=== PATIENT | female | born 1975 | race Caucasian/White ===

== ENCOUNTER 2016-12-16 20:47 | Emergency (ER) | payer BC, MEDICAID ==
[2016-12-16] MEDS ORDERED: guaiFENesin/CODEINE 5 ML UDC PO STA (22:13)
[2016-12-16] MEDS ORDERED: AZITHROMYCIN 250 MG TABLET PO STA (22:13)
[2016-12-16] MEDS ORDERED: DEXAMETHASONE 10 MG/ML VIAL PO STA (22:13)
[2016-12-16] MEDS ORDERED: AZITHROMYCIN 250 MG TABLET PO ONE (22:15)
[2016-12-16] MEDS ORDERED: DEXAMETHASONE 10 MG/ML VIAL ONE (22:16)
[2016-12-16] MEDS ORDERED: guaiFENesin/CODEINE 5 ML UDC ONE (22:16)
== END 2016-12-16 22:32 | disposition home or self-care (01) ==
DX: J02.9 Acute pharyngitis, unspecified (principal); I10 Essential (primary) hypertension; J45.909 Unspecified asthma, uncomplicated; E11.9 Type 2 diabetes mellitus without complications; Z79.4 Long term (current) use of insulin; M79.7 Fibromyalgia
CPT/HCPCS: 87070; 87430; 99283; A9270

== ENCOUNTER 2017-01-28 22:13 | Emergency (ER) | payer BC ==
--- NOTE | 2017-01-28 22:21 | ED Physician Documentation ---
PD HPI URI - Stated complaint Stated Complaint: CONGESTION, COUGH - Chief complaint Chief Complaint: Resp - History obtained from History obtained from: Patient - History of Present Illness Timing - onset: How many days ago (few) Timing duration: Days Timing details: Gradual onset, Still present Associated symptoms: Chills, Nasal congestion, Swollen nodes, Dry cough, Dyspnea. No: Fever, Sinus pain, Hemoptysis, Chest pain, Bilateral edema Contributing factors: COPD / asthma. No: Sick contact, Travel, Immunocompromised, Unimmunized Improves by: Rest Worsened by: Activity Similar symptoms before: Has not had sx before Recently seen: Not recently seen Review of Systems Constitutional: denies: Fever, Chills Neurologic: denies: Focal weakness, Numbness PD PAST MEDICAL HISTORY - Past Medical History Cardiovascular: Hypertension Respiratory: Asthma Neuro: Headache/migraine Endocrine/Autoimmune: Type 2 diabetes Musculoskeletal: Fibromyalgia - Past Surgical History Past Surgical History: No - Present Medications Home Medications: Ambulatory Orders Medication Instructions Recorded Confirmed Insulin Glargine,Hum.rec.anlog 07/16/13 05/21/15 [Lantus] Metformin HCl 500 mg PO BID 06/28/16 06/28/16 oxyCODONE/ACET 5/325 [Percocet 5 1 - 2 each PO Q4-6H PRN #15 tablet 06/28/16 mg/325 mg] Azithromycin [Zithromax] 250 mg PO DAILY #4 tablet 12/16/16 guaiFENesin/CODEINE [Robitussin AC] 5 ml PO Q6H PRN #100 udc 12/16/16 Dexamethasone [Decadron] 4 mg PO DAILY #5 tablet 01/28/17 - Allergies Allergies/Adverse Reactions: Allergies Allergy/AdvReac Type Severity Reaction Status Date / Time Iodinated Contrast Media - Allergy Hives Verified 06/28/16 10:24 Oral and [Iodinated Contrast Media - IV Dye] hydromorphone HCl * AdvReac Unknown Hallucinati Verified 07/16/13 19:58 [From Dilaudid] ons - Social History Does the pt smoke?: No Smoking Status: Never smoker Does the pt drink ETOH?: Yes Does the pt have substance abuse?: No - Immunizations Immunizations are current?: Yes - POLST Patient has POLST: No PD ED PE NORMAL - Vitals Vital signs reviewed: Yes - General General: Alert and oriented X 3, No acute distress, Well developed/nourished - HEENT HEENT: Moist mucous membranes - Neck Neck: Supple, no meningeal sign, No adenopathy - Cardiac Cardiac: RRR, No murmur - Respiratory Respiratory: Clear bilaterally - Abdomen Abdomen: Non tender - Back Back: No CVA TTP - Derm Derm: Normal color, Warm and dry - Neuro Neuro: Alert and oriented X 3, supervisor in charge 2-12 intact, No motor deficit, No sensory deficit, Normal speech Results - Vitals Vitals: Oxygen O2 Source Room air PD MEDICAL DECISION MAKING - ED course Complexity details: re-evaluated patient, considered differential, d/w patient Departure - Departure Disposition: Home, Self Care Clinical Impression: Upper respiratory infection Qualifiers: URI type: unspecified URI Qualified Code(s): J06.9 - Acute upper respiratory infection, unspecified Condition: Stable Record reviewed to determine appropriate education?: Yes Instructions: ED URI Viral W Wheezing Prescriptions: Dexamethasone [Decadron] 4 mg PO DAILY #5 tablet Comments: Drink lots of fluids. Tylenol or Ibuprofen for fevers/aches. Decadron daily for 5 days to reduce swelling of sinuses and bronchioles. Use the Albuterol inhaler 2 puffs 4 times daily for a week or more to help with reducing cough and tightness. Add cough medication if needed. This is likely to last 3-5 days or so and then the cough may persist for couple of weeks intermittently. Rest off work if needed for the next 2-3 days. Forms: Activity restrictions Discharge Date/Time: 01/28/17 23:25
[2017-01-28] MEDS ORDERED: guaiFENesin/CODEINE 5 ML UDC ONE (22:41)
[2017-01-28] MEDS ORDERED: ONDANSETRON ODT 4 MG TABLET ONE (22:41)
[2017-01-28] MEDS ORDERED: DEXAMETHASONE 10 MG/ML VIAL ONE (22:41)
[2017-01-28] MEDS ORDERED: ALBUTEROL 18 GM INHALER INH ONE ×2 (22:42→23:03)
[2017-01-28] MEDS: DEXAMETHASONE 10 MG/ML VIAL PO STA (22:47)
[2017-01-28] MEDS: ONDANSETRON ODT 4 MG TABLET TL STA (22:47)
[2017-01-28] MEDS: guaiFENesin/CODEINE 5 ML UDC PO STA (22:47)
[2017-01-28 22:59] VITALS: BP 159/101
[2017-01-28] MEDS: ALBUTEROL 8 GM INHALER INH STA (23:11)
== END 2017-01-28 23:25 | disposition home or self-care (01) ==
LOC: ED 22:13
DX: J06.9 Acute upper respiratory infection, unspecified (principal); I10 Essential (primary) hypertension; J45.909 Unspecified asthma, uncomplicated; J44.9 Chronic obstructive pulmonary disease, unspecified; E11.9 Type 2 diabetes mellitus without complications; Z79.4 Long term (current) use of insulin; Z79.84 Long term (current) use of oral hypoglycemic drugs; M79.7 Fibromyalgia
CPT/HCPCS: 94640; 99283

== ENCOUNTER 2017-06-01 18:44 | Emergency (ER) | payer BC ==
[2017-06-01 18:53] VITALS: BP 145/100
[2017-06-01] MEDS ORDERED: oxyCODONE/ACET 5/325 Prepack 4 PO STA (20:36)
[2017-06-01] MEDS ORDERED: AMOX/CLAV 875 MG/125 MG TABLET PO STA (20:36)
--- NOTE | 2017-06-01 20:39 | ED Physician Documentation ---
PD HPI URI - Stated complaint Stated Complaint: HUSAIN/CONGESTION - Chief complaint Chief Complaint: Heent - History obtained from History obtained from: Patient - History of Present Illness Timing - onset: Other (This is a 41-year-old woman with type 2 diabetes, not currently on treatment because she is between doctors she has had 4 days of severe sinus pain, drainage, tactile fevers and a nonproductive cough without shortness of breath.) Review of Systems Constitutional: reports: Fever, Chills, Fatigue. denies: Myalgias Ears: denies: Loss of hearing, Ear pain Nose: reports: Rhinorrhea / runny nose, Congestion, Sinus pressure / pain. denies: Epistaxis Respiratory: reports: Cough. denies: Dyspnea PD PAST MEDICAL HISTORY - Past Medical History Past Medical History: Yes Cardiovascular: Hypertension Respiratory: Asthma Neuro: Headache/migraine Endocrine/Autoimmune: Type 2 diabetes Musculoskeletal: Fibromyalgia - Past Surgical History Past Surgical History: Yes General: Colonoscopy, Other - Present Medications Home Medications: Ambulatory Orders Medication Instructions Recorded Confirmed Amox/Clav 875/125 [Augmentin] 1 each PO Q12H 14 Days 06/01/17 Glipizide [Glipizide ER] 5 mg PO DAILY #30 tab.er.24 06/01/17 Guaifenesin/Pseudoephedrne HCl 1 each PO BID PRN #20 tab.er.12h 06/01/17 [Mucinex D ER 600-60 mg Tablet] Oxycodone HCl/Acetaminophen 1 - 2 tab PO Q4H PRN #7 tablet 06/01/17 [Percocet 5-325 mg Tablet] - Allergies Allergies/Adverse Reactions: Allergies Allergy/AdvReac Type Severity Reaction Status Date / Time Iodinated Contrast- Oral and Allergy Hives Verified 06/01/17 20:10 IV Dye [Iodinated Contrast Media - IV Dye] hydromorphone HCl * AdvReac Unknown Hallucinati Verified 06/01/17 20:10 [From Dilaudid] ons - Social History Does the pt smoke?: Yes Smoking Status: Current every day smoker Does the pt drink ETOH?: Yes Does the pt have substance abuse?: No - Immunizations Immunizations are current?: Yes - POLST Patient has POLST: No PD ED PE NORMAL - Vitals Vital signs reviewed: Yes - General General: Alert and oriented X 3, No acute distress - HEENT HEENT: PERRL, EOMI, Ears normal, Pharynx benign, Other (Bilateral frontal sinus tenderness) - Neck Neck: Supple, no meningeal sign, No bony TTP - Cardiac Cardiac: RRR, No murmur - Respiratory Respiratory: No respiratory distress, Clear bilaterally - Abdomen Abdomen: Non tender - Derm Derm: No rash - Neuro Neuro: Alert and oriented X 3, Normal speech - Psych Psych: Normal mood, Normal affect Results - Vitals Vitals: Vital Signs - 24 hr 06/01/17 18:52 Temperature 36.2 C L Heart Rate 104 H Respiratory 18 Rate Blood Pressure 145/100 H O2 Saturation 99 Oxygen O2 Source Room air PD MEDICAL DECISION MAKING - ED course ED course: 41-year-old woman with sinusitis in the setting of uncontrolled diabetes. We will restart her on glipizide, she declined metformin because of side effects. She refused to have her blood sugar checked here. Departure - Departure Disposition: 01 Home, Self Care Clinical Impression: Sinusitis Qualifiers: Sinusitis location: frontal Chronicity: acute Recurrence: recurrent Qualified Code(s): J01.11 - Acute recurrent frontal sinusitis Hyperglycemia due to type 2 diabetes mellitus Qualifiers: Diabetes mellitus fpc insulin use: without terminal operations supervisor use Qualified Code(s ): E11.65 - Type 2 diabetes mellitus with hyperglycemia Condition: Good Record reviewed to determine appropriate education?: Yes Instructions: ED Sinusitis Abx Tx Prescriptions: Amox/Clav 875/125 [Augmentin] 1 each PO Q12H 14 Days Glipizide [Glipizide ER] 5 mg PO DAILY #30 tab.er.24 Guaifenesin/Pseudoephedrne HCl [Mucinex D ER 600-60 mg Tablet] 1 each PO BID PRN #20 tab.er.12h PRN Reason: congestion Oxycodone HCl/Acetaminophen [Percocet 5-325 mg Tablet] 1 - 2 tab PO Q4H PRN #7 tablet PRN Reason: Pain Comments: Call your doctor to arrange a follow-up appointment, make the next available appointment. In the interim, return anytime if worse or if new symptoms develop. Your blood pressure was elevated today on check into the emergency department. This does not mean that you have hypertension, it is a common phenomenon to come to the emergency department and have elevated blood pressure. I recommend that she see your primary care physician within the week to have it rechecked when you are feeling better. Do not drink or drive while taking narcotic pain medication. Note that many narcotic pain relievers also contain Tylenol/acetaminophen. Please ensure that your total dose of acetaminophen from all sources does not exceed 3 g (3000 mg) per day. You may get constipated while on this medication. Take a stool softener such as Colace twice a day while you are on it. Also add an [id number] laxative such as senna or MiraLAX on any day that you do not have a bowel movement. If you received a narcotic pain medication or sedative while in the emergency department, do not drive for the next 24 hours. Forms: Activity restrictions Discharge Date/Time: 06/01/17 20:50
[2017-06-01] MEDS ORDERED: AMOX/CLAV 875 MG/125 MG TABLET PO ONE (20:47)
[2017-06-01] MEDS ORDERED: oxyCODONE/ACET 5/325 Prepack 4 PO ONE (20:47)
== END 2017-06-01 20:50 | disposition home or self-care (01) ==
LOC: ED 18:44
DX: J01.11 Acute recurrent frontal sinusitis (principal); E11.65 Type 2 diabetes mellitus with hyperglycemia; Z79.84 Long term (current) use of oral hypoglycemic drugs; I10 Essential (primary) hypertension; J45.909 Unspecified asthma, uncomplicated; M79.7 Fibromyalgia; F17.200 Nicotine dependence, unspecified, uncomplicated
CPT/HCPCS: 99283; A9270

== ENCOUNTER 2017-06-22 10:38 | Outpatient (CLI) | payer BC | END 2017-06-22 10:39 | disposition critical access hospital (66) | LOC: EMS 10:38 | PROVIDERS: ATTEND Surgery | DX: R41.82 Altered mental status, unspecified (principal); R73.09 Other abnormal glucose; R11.2 Nausea with vomiting, unspecified ==

== ENCOUNTER 2017-06-22 10:50 | Observation (INO) | payer BC ==
[2017-06-22] MEDS ORDERED: NALOXONE 0.4 MG/ML VIAL IVP STA (11:03)
[2017-06-22 11:14] LABS: BILIRUBIN,URINE NEGATIVE (NEGATIVE)
[2017-06-22 11:18] LABS: HCG UR QUAL NEGATIVE; UA w/ MICROSCOPIC CHARGE YES
[2017-06-22 11:34] LABS: UR CULTURE IF IND NOT INDICATED
[2017-06-22] MEDS ORDERED: ONDANSETRON ODT 4 MG TABLET TL STA (11:36)
[2017-06-22] MEDS ORDERED: LORazepam 2 MG/ML SYRINGE IVP STA (11:36)
[2017-06-22] MEDS ORDERED: LORazepam 2 MG/ML SYRINGE ONE (11:39)
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
[2017-06-22 12:12] LABS: BASOPHILS % (AUTO) 0.4 %; EOSINOPHILS % (AUTO) 0.2 %; HCT - HEMATOCRIT 38.6 % (37.0-47.0); HGB - HEMOGLOBIN 13.3 g/dL (12.0-16.0); LYMPHOCYTES % (AUTO) 8.9 %; MEAN CORPUSCULAR HEMOGLOBIN 30.3 pg (27.0-31.0); MEAN CORPUSCULAR HGB CONC 34.4 g/dL (32.0-36.0); MEAN CORPUSCULAR VOLUME 87.9 fL (81.0-99.0); MEAN PLATELET VOLUME 8.4 fL (7.9-10.8); NEUTROPHILS % (AUTO) 84.5 %; RED BLOOD COUNT 4.39 10^6/uL (4.20-5.40); RED CELL DISTRIBUTION WIDTH 12.8 % (12.0-15.0); UNCORRECTED WHITE BLOOD COUNT 20.5 x10^3/uL; WHITE BLOOD COUNT 20.5 x10^3/uL (4.8-10.8)
[2017-06-22 12:27] LABS: SALICYLATE < 6.0 mg/dL
[2017-06-22 12:34] LABS: BAND NEUTROPHILS % (MANUAL) 2 %; EOSINOPHILS % (MANUAL) 1 %; LYMPHOCYTES % (MANUAL) 11 %; NEUTROPHILS % (MANUAL) 79 %; TOTAL CELLS COUNTED 100
[2017-06-22 12:35] LABS: NP AUTO DIFFERENTIAL? YES; NP MAN DIFFERENTIAL? NO; WBC MORPHOLOGY (MULTIPLE) 1+ VACUOLATION (NORMAL)
[2017-06-22 12:46] LABS: BUN - BLOOD UREA NITROGEN 13 mg/dL (6-20)
[2017-06-22 12:48] LABS: CALCIUM 8.4 mg/dL (8.5-10.3); CARBON DIOXIDE - CO2 20 mmol/L (21-32); CHLORIDE 105 mmol/L (101-111); CREATININE 0.6 mg/dL (0.4-1.0); GFR - MDRD 111 (>89); GLUCOSE 331 mg/dL (70-100); SODIUM 135 mmol/L (135-145)
[2017-06-22 12:55] LABS: ACETAMINOPHEN < 10 ug/mL (10-30)
--- NOTE | 2017-06-22 13:00 | CT Preliminary Report ---
Exam: CT HEAD W/O IMPRESSION: Normal head CT. [facility] SITE ID: [id number]
--- NOTE | 2017-06-22 13:02 | CT Report ---
EXAM: CT HEAD EXAM DATE: 06/22/2017 12:32 PM. CLINICAL HISTORY: Found on floor with altered mental status. COMPARISON: None. TECHNIQUE: Multiaxial CT images were obtained from the foramen magnum to the vertex. IV contrast: Non e. Reformats: Coronal. In accordance with CT protocol optimization, one or more of the following dose reduction techniques w ere utilized for this exam: automated exposure control, adjustment of mA and/or KV based on patient s ize, or use of iterative reconstructive technique. FINDINGS: Parenchyma: No intraparenchymal hemorrhage. No evidence of mass, midline shift, or CT findings of inf arction. Araya-white differentiation is distinct. Extraaxial Spaces: Normal for age. No subdural or epidural collections identified. Ventricles: Normal in size and position. Sinuses and orbits: Imaged paranasal sinuses, orbits, and mastoids show no significant abnormality. Bones: No evidence of fracture or calvarial defect. Other: None. IMPRESSION: Normal head CT. [facility] Referring Provider Line: [phone] SITE ID: [id number]
--- NOTE | 2017-06-22 13:04 | CT Preliminary Report ---
Exam: CT CERVICAL SPINE W/O IMPRESSION: 1. No cervical spine fracture. 2. Lower cervical spine kyphosis and degenerative changes. [facility] SITE ID: [id number]
--- NOTE | 2017-06-22 13:06 | CT Report ---
EXAM: CT CERVICAL SPINE WITHOUT CONTRAST DATE: 06/22/2017 12:32 PM HISTORY: Found down. Altered mental status. COMPARISONS: None. TECHNIQUE: Thin-section axial images were acquired of the cervical spine without contrast. Post-proce ssing: Coronal and sagittal reformats. Other: None. In accordance with CT protocol optimization, one or more of the following dose reduction techniques w ere utilized for this exam: automated exposure control, adjustment of mA and/or KV based on patient s ize, or use of iterative reconstructive technique. FINDINGS: Alignment: 34 degree kyphosis from C3-C4 to T1-T2 level. Bones: No fracture or bone lesion. Interspace Levels/Facets: Mild loss of disk space height at C5-C6 through C7-T1 levels. Mild bilateral C5-C6 uncovertebral joint hypertrophy, without significant neuroforaminal narrowing. Musculature: Normal. No fatty atrophy. Other: The paravertebral and prevertebral soft tissues are normal. The lung apices are clear. IMPRESSION: 1. No cervical spine fracture. 2. Lower cervical spine kyphosis and degenerative changes. [facility] Referring Provider Line: [phone] SITE ID: [id number]
[2017-06-22] MEDS ORDERED: ACETAMINOPHEN 325 MG TABLET PO STA (14:01)
[2017-06-22] MEDS ORDERED: SODIUM CHLORIDE 0.9% 1,000 ML IV ONE (14:01)
[2017-06-22] MEDS ORDERED: ACETAMINOPHEN 325 MG TABLET PO ONE (14:08)
--- NOTE | 2017-06-22 15:04 | XRAY Preliminary Report ---
Exam: XR CHEST 2 VIEW PA/LAT IMPRESSION: No acute cardiopulmonary abnormality. [facility] SITE ID: [id number]
--- NOTE | 2017-06-22 15:06 | XRAY Report ---
EXAM: CHEST RADIOGRAPHY EXAM DATE: 06/22/2017 02:56 PM. CLINICAL HISTORY: Chest pain syncope. COMPARISON: 06/28/2016. TECHNIQUE: 2 views. FINDINGS: Lungs/Pleura: No focal opacities evident. No pleural effusion. No pneumothorax. Normal volumes. Mediastinum: Heart and mediastinal contours are unremarkable. Other: None. IMPRESSION: No acute cardiopulmonary abnormality. [facility] Referring Provider Line: [phone] SITE ID: [id number]
[2017-06-22] MEDS ORDERED: ONDANSETRON ODT 4 MG TABLET ONE (15:21)
[2017-06-22] MEDS ORDERED: PROCHLORPERAZINE 10 MG/2 ML VIAL IVP PRN (16:44)
[2017-06-22] MEDS ORDERED: SODIUM CHLORIDE FLUSH 0.9% 10 ML SYRINGE IVP PRN (16:44)
[2017-06-22] MEDS ORDERED: ACETAMINOPHEN 325 MG TABLET PO PRN (16:44)
[2017-06-22] MEDS ORDERED: ONDANSETRON 4 MG/2 ML VIAL IVP PRN (16:44)
[2017-06-22] MEDS ORDERED: cefTRIAXone 1 GM in SODIUM CHLORIDE 0.9% MINIBAG 100 ML IV SCH (17:00)
[2017-06-22] MEDS ORDERED: cefTRIAXone 1 GM VIAL IVP SCH (17:00)
[2017-06-22] MEDS ORDERED: SODIUM CHLORIDE 0.9% 1,000 ML IV SCH ×2 (17:00)
--- NOTE | 2017-06-22 17:03 | HISTORY & PHYSICAL EXAMINATION ---
Chief Complaint - Chief Complaint Chief Complaint: syncope History of Present Illness - Admitted From Admitted From:: ER - History Obtained From History obtained from: pt - History of Present Illness HPI Comment/Other: This is a 42-year-old Cauc[place] female with a past medical history significance for DM2, HTN, Asthma, headache/migraine, fibromyalgia, who present ER for evaluation of one episode syncope. Patient report when she took shower at home, she felt dizziness, and numbness on both legs, then she sit down for a whole. When she slowly stand up, she lost of consciousness. She state the last thing she remember was she tried to stand up. Patient report she did not have PCP now. She was used to have insulin to control his blood sugar, but now she did not have PCP. She did not use insulin for recent two years. Patient state her blood sugar always runs high. She state "when I eat some sugar stuff, my sugar run up to 600." She state she was never diagnosis of seizure, and never had "normal seizure." patient also state she was never diagnosis of colon cancer. patient denies fever, chill, chest pain, palpitation, cough, shortness of breath , abdominal pain, nausea, vomiting, diarrhea. image studies are unremarkable. Lab test reveals elevated blood glucose, and WBC , questionable UTI. She is admitted for evaluation and treatment of syncope. History - Past Medical History Cardiovascular: reports: Hypertension Respiratory: reports: Asthma Neuro: reports: Headache/migraine Endocrine/Autoimmune: reports: Type 2 diabetes Musculoskeletal: reports: Fibromyalgia MRSA Hx?: No - Past Surgical History General: reports: Colonoscopy, Other - POLST Patient has POLST: No Meds/Allgy - Home Medications Home Medications: Ambulatory Orders Medication Instructions Recorded Confirmed Amox/Clav 875/125 [Augmentin] 1 each PO Q12H 14 Days tablet 06/01/17 06/22/17 Glipizide [Glipizide ER] 5 mg PO DAILY #30 tab.er.24 06/01/17 06/22/17 Guaifenesin/Pseudoephedrne HCl 1 each PO BID PRN #20 tab.er.12h 06/01/17 [Mucinex D ER 600-60 mg Tablet] Oxycodone HCl/Acetaminophen 1 - 2 tab PO Q4H PRN #7 tablet 06/01/17 06/22/17 [Percocet 5-325 mg Tablet] Cyclobenzaprine [Flexeril] 10 mg PO PRN 06/22/17 Cyclobenzaprine [Flexeril] 10 mg PO TID PRN 06/22/17 - Allergies Allergies/Adverse Reactions: Allergies Allergy/AdvReac Type Severity Reaction Status Date / Time chocolate flavor Allergy Anaphylaxis Verified 06/22/17 19:33 Iodinated Contrast- Oral and Allergy Hives Verified 06/22/17 10:57 IV Dye [Iodinated Contrast Media - IV Dye] hydromorphone HCl * AdvReac Unknown Hallucinati Verified 06/22/17 10:57 [From Dilaudid] ons Review of Systems - Constitutional Constitutional: reports: Fatigue, Weakness. denies: Fever, Chills, Malaise, Poor appetite, Diaphoresis, Night sweats, Weight gain, Weight loss - Eyes Eyes: denies: Pain, Irritation, Amaurosis, Blurred vision, Spots in vision, Field loss, Vision loss, Dipolpia - Ears, Nose & Throat Ears, Nose & Throat: denies: Ear pain, Hearing loss, Hearing aids, Tinnitus, Vertigo, Nasal pain, Nasal discharge, Nasal congestion, Postnasal drainage, Dentures, Sore throat, Hoarseness, Mouth lesions, Bleeding gums - Cardiovascular Cariovascular: reports: Syncope. denies: Irregular heart rate, Palpitations, Chest pain, Edema, Lightheadedness, Exertional dyspnea, Decr. exercise tolerance , Orthopnea - Respiratory Respiratory: denies: Cough, Sputum production, Wheezing, Snoring, Hemoptysis, Orthopnea, SOB at rest, SOB with exertion, Apnea - Gastrointestinal Gastrointestinal: denies: Abdominal pain, Abdominal distention, Constipation, Diarrhea, Change in bowel habits, Rectal bleeding, Black stools, Bloody stools, Nausea, Vomiting, Dayne blood emesis, Coffee grounds emesis, Reflux/heartburn, Poor appetite - Genitourinary Genitourinary: denies: Dysuria, Frequency, Urgency, Hematuria, Incontinence, Flank pain, Nocturia - Musculoskeletal Musculoskeletal: denies: Muscle pain, Back pain, Muscle aches, Stiffness, Limited range of motion, Muscle weakness, Gout, Joint pain, Joint swelling - Integumentary Integumentary: denies: Rash, Pruritis, Lesions, Dryness, Lumps, Acne, Pigment changes - Neurological Neurological: denies: General weakness, Focal weakness, Headache, Dizziness, Numbness, Memory problems, Pre-existing deficit, Abnormal gait, Seizures, Incoordination, Slurred speech - Psychiatric Psychiatric: denies: Depression, Anxiety, Suicidal, Delusions, Hallucinations, Homicidal - Endocrine Endocrine: denies: Polyuria, Polydypsia, Polyphagia, Intolerance to cold, Intolerance to heat - Hematologic/Lymphatic Hematologic/Lymphatic: denies: Anemia, Bruising, Petechiae, Blood clots, Lymphadenopathy, Bleeding tendencies, Recurrent infections Exam - Vital Signs Reviewed Vital Signs: Yes Vital Signs: Vital Signs x48h Temp Pulse Resp BP Pulse Ox 06/22/17 15:34 37.0 C 91 18 147/85 H 98 06/22/17 13:56 92 13 159/93 H 97 06/22/17 11:54 103 H 26 H 150/95 H 98 06/22/17 10:52 100 14 165/95 H 100 - Physical Exam General Appearance: positive: No acute distress, Alert. negative: Lethargic Eyes Bilateral: positive: Normal inspection, PERRL, EOMI, No lid inflammation, Conjunctivae nml ENT: positive: ENT inspection nml, Pharynx nml, No signs of dehydration. negative: Purulent nasal drainage, Pharyngeal erythema, Oral lesions Neck: positive: Nml inspection, Thyroid nml, No JVD, Trachea midline. negative : Thyromegaly, Lymphadenopathy (R), Lymphadenopathy (L), Stiff neck, Carotid bruit, Swelling/bruising, Tracheal deviation Respiratory: positive: Chest non-tender, No respiratory distress, Breath sounds nml. negative: Wheezes, Rales, Rhonchi Cardiovascular: positive: Regular rate & rhythm, No murmur, No gallop. negative : Irregularly irregular, Extrasystoles, Tachycardia, Bradycardia, Systolic murmur, Diastolic murmur Peripheral Pulses: positive: 2+ Abdomen: positive: Non-tender, Nml bowel sounds, No distention. negative: Tenderness, Guarding, Rebound, Abnml bowel sounds Back: positive: Nml inspection. negative: CVA tenderness (R), CVA tenderness (L ) Skin: positive: Color nml, No rash, Warm, Dry. negative: Cyanosis, Diaphoresis , Pallor, Skin rash Extremities: positive: Non-tender, Full ROM, Nml appearance. negative: Calf tenderness, Joint swelling, Kristina's sign/cords Neurologic/Psychiatric: positive: Oriented x3, Motor nml, Sensation nml, Mood/ affect nml. negative: Sensory loss, Facial droop, Slurred/abnml speech, Depressed mood/affect Conclusion/Plan - Problem List (1) Syncope Conclusion/Plan: Pt is alert, oriented now. CT of head and neck, CXR all are unremarkable. Pt state she never had seizure or diagnosis of seizure. ECHO for pt tele, vital monitor fall precaution orthostatic BP check (2) Leukocytosis Conclusion/Plan: pt had significant acute elevated WBC 20.5, but no fever, chill, CXR negative for infection, with questionable UTI UA and culture again add rocephin daily daily lab,CBC, vital monitor blood culture, follow up (3) DM2 (diabetes mellitus, type 2) Conclusion/Plan: elevated glucose, she did not see PCP and did not have insulin for at least two years. check A1C resume home meds for DM2 Slide scale, lantus 5 unit PM ACHS hypoglycemia protocol (4) HTN (hypertension) Conclusion/Plan: stable, will resume of home meds vital monitor (5) Asthma Conclusion/Plan: stable, resume home meds (6) Headache, migraine Conclusion/Plan: no complain of headache, closely monitor. (7) DVT prophylaxis Conclusion/Plan: SCD and lovenox - Lab Results Fish Bones: 06/22/17 22:22 06/22/17 22:22 Issues/Core Measures - Anticipated LOS Anticipated Stay Length: Less than 2 midnights (expected less than 2 midnights) - Issues Hospital Issues and Management Plan: pt state she wants full codes
[2017-06-22 17:42] LABS: HEMOGLOBIN A1C 1.51 g/dL
[2017-06-22] MEDS: INSULIN GLARGINE 300 UNIT/3 ML PEN SUBQ SCH ×2 (19:57→22:24)
[2017-06-22] MEDS: INSULIN ASPART 300 UNIT/3 ML PEN SUBQ SCH (19:58)
[2017-06-22] MEDS ORDERED: oxyCOD/ACETAMIN 5 MG/325 MG TABLET PO PRN (20:06)
[2017-06-22] MEDS ORDERED: SODIUM CHLORIDE FLUSH 0.9% 10 ML SYRINGE IVP SCH (22:00)
[2017-06-22 22:02] LABS: BILIRUBIN,URINE NEGATIVE (NEGATIVE)
[2017-06-22 22:30] LABS: BASOPHILS # (AUTO) 0.1 10^3/uL (0.0-0.1); BASOPHILS % (AUTO) 0.6 %; EOSINOPHILS # (AUTO) 0.2 10^3/uL (0.0-0.7); EOSINOPHILS % (AUTO) 1.4 %; HCT - HEMATOCRIT 37.8 % (37.0-47.0); HGB - HEMOGLOBIN 13.1 g/dL (12.0-16.0); LYMPHOCYTES # (AUTO) 3.6 10^3/uL (1.5-3.5); LYMPHOCYTES % (AUTO) 27.8 %; MEAN CORPUSCULAR HEMOGLOBIN 30.2 pg (27.0-31.0); MEAN CORPUSCULAR HGB CONC 34.7 g/dL (32.0-36.0); MEAN CORPUSCULAR VOLUME 87.2 fL (81.0-99.0); MEAN PLATELET VOLUME 8.4 fL (7.9-10.8); MONOCYTES # (AUTO) 0.9 10^3/uL (0.0-1.0); MONOCYTES % (AUTO) 6.7 %; NEUTROPHILS # (AUTO) 8.2 10^3/uL (1.5-6.6); NEUTROPHILS % (AUTO) 63.5 %; RED BLOOD COUNT 4.34 10^6/uL (4.20-5.40); RED CELL DISTRIBUTION WIDTH 12.7 % (12.0-15.0); UNCORRECTED WHITE BLOOD COUNT 12.9 x10^3/uL; WHITE BLOOD COUNT 12.9 x10^3/uL (4.8-10.8)
[2017-06-22 22:41] LABS: CALCIUM 8.5 mg/dL (8.5-10.3); CREATININE 0.6 mg/dL (0.4-1.0); MAGNESIUM 1.5 mg/dL (1.7-2.8); POTASSIUM 3.5 mmol/L (3.5-5.0)
--- NOTE | 2017-06-22 23:31 | Discharge Plan ---
Discharge Plan Disposition: 02 Transfer Acute Care Hosp Condition: Serious No Smoking: If you smoke, Please STOP! Call for help.
[2017-06-23] MEDS: INSULIN ASPART 300 UNIT/3 ML PEN SUBQ SCH (00:02)
[2017-06-23] MEDS ORDERED: MAGNESIUM SULFATE 2 GRAM 2 GM/50 ML BAG IV ONE (00:05)
[2017-06-23] MEDS ORDERED: MORPHINE 2 MG/ML SYRINGE IVP PRN (00:11)
[2017-06-23] MEDS ORDERED: MAGNESIUM SULFATE 2 GRAM 2 GM/50 ML BAG IV SCH (00:22)
[2017-06-23 02:24] VITALS: BP 103/66
--- NOTE | 2017-06-23 03:01 | DISCHARGE SUMMARY ---
DATE OF ADMISSION: 06/22/2017 DATE OF DISCHARGE: 06/23/2017 HPI: This is a 42-year-old white female with a history of diabetes who has been unable to obtain her insulin prescription for 3 years, she takes oral agents, she has a history of PTSD and OCD, bipolar disorder and asthma. Records indicate she has colon cancer, but this is not confirmed with any other supportive material. Her daughter also indicates that she has had seizures for many years, but this is not supported by any results in this EMR. The patient was brought to the emergency room by ambulance after the family heard a thud and found her on the floor of her bathroom unresponsive. This occured in this sequence: The patient was taking a shower and felt dizzy and had chest pressure and sat down in the shower until her symptoms cleared and then she was able to finish her shower and as she stepped out of the shower, she fell. This was not witnessed. This is when the family responded to hearing the thud and found her unresponsive, but breathing and with a pulse. She was leaning against a cabinet. She was lethargic in the ambulance, but with stable vital signs. In the emergency room, she was awake, alert, and had no recollection of the event. She was placed in observation for evaluation of possible syncope. The admission lab work was normal except for an elevated white blood count with a left shift, but a normal chest x-ray, normal head CT and urine sample (that was not a clean catch, however). HOSPITAL COURSE AND DISCHARGE DIAGNOSES: 1. Seizures. Approximately 8 hours after being placed in observation, the patient started to complain of a headache in the area where she had hit her head and she was given Percocet. Approximately 30 minutes later, the nurse witnessed the patient having a tonic-clonic seizure, without tongue biting and without loss of bladder and bowel control. A rapid response was called, and as I entered the room, she was lethargic, but having normal motion (she was felt to be postictal). Her daughter was in the room during the entire event and reported to me that this is the type of activity that the mother has had, most recently 1 week prior when they were both together in [place] and the patient apparently had this type of event in the middle of the night, but did not seek emergency room attention. The daughter also states that the mother occasionally will start clenching her teeth and shaking her arms, but that the patient's "seizure dog will warn the patient of a pending seizure." It is unclear if the patient performs any preventative activity at this time, but she has no seizure medications that have been ever prescribed. The daughter thinks that possibly the seizures have started as far back as 5-10 years ago. Besides the one 1 week ago, the previous one was 2 years ago, according to the daughter. The patient was moved from the observation room into intensive care unit and had continued lethargy, was able to speak with slurred speech, was oriented x3, and began vomiting. She had a prolonged postictal recovery. Initially blood pressure was 170/110, which slowly improved and the patient was somnolent but arousable. I contacted a Neurology specialist (Dr Anthony) and Hospitalist (Dr Perez) at [facility], where she was accepted for transfer for further management of seizures. The hospitalist and neurologist did not recommend any antiseizure medications to be administered here. MRI, antiseizure medicines and EEG will be performed at the accepting facility. The patient will be transferred in guarded condition, but with stable vital signs with an IV Hep- Lock. 2. Diabetes with poor control. The patient does follow a diet, but only takes oral hypoglycemic agents, has no insulin prescription. Here, she was on a sliding scale coverage for insulin and on a diabetic diet, which was then changed to n.p.o. when she started to have vomiting after her witnessed seizure. 3. Head injury without trauma and with normal head CT. Blood pressure elevation was only temporary, during that time, her head of bed was elevated at 30 degrees. An MRI of the brain was not able to be performed here, this will be done at the accepting facility after transfer. 4. Post-traumatic stress disorder/obsessive compulsive disorder/bipolar disorder. These diagnoses are listed in the electronic health record, but the patient has no prescription treatment for these conditions on her medication list. CONDITION AT DISCHARGE: Guarded. Followup with her primary doctor and with further recommended followups after discharge from [facility]. Time for discharge including review of records, contact with accepting facility and doctors, completion of forms: 75 minutes. JOB #: [id number] EXT JOB #:[id number] ALEJANDRO
[2017-06-23] MEDS ORDERED: ENOXAPARIN 40 MG/0.4 ML SYRINGE SUBQ SCH (09:00)
[2017-06-23] MEDS ORDERED: POLYETHYLENE GLYCOL 3350 17 GM PACKET PO SCH (09:00)
[2017-06-23] MEDS ORDERED: FAMOTIDINE 20 MG TABLET PO SCH (09:00)
== END 2017-06-23 02:08 | disposition short-term general hospital (02) ==
LOC: EDBD → EDUNIT# → ED 10:50 → OBS 16:45 → ICU 22:13
PROVIDERS: ADMIT Nurse Practitioner Gerontology; ATTEND Internal Medicine
DX: R56.9 Unspecified convulsions (principal); R55 Syncope and collapse; D72.829 Elevated white blood cell count, unspecified; E11.65 Type 2 diabetes mellitus with hyperglycemia; I10 Essential (primary) hypertension; J45.909 Unspecified asthma, uncomplicated; G43.909 Migraine, unspecified, not intractable, without status migrainosus; M79.7 Fibromyalgia; F17.200 Nicotine dependence, unspecified, uncomplicated; Z79.84 Long term (current) use of oral hypoglycemic drugs; Z79.891 Long term (current) use of opiate analgesic; Z79.899 Other long term (current) drug therapy; S00.03XA Contusion of scalp, initial encounter; W18.2XXA Fall in (into) shower or empty bathtub, initial encounter; Y93.E1 Activity, personal bathing and showering; Y92.002 Bathroom of unspecified non-institutional (private) residence as the place of occurrence of the external cause; Y99.8 Other external cause status
CPT/HCPCS: 36415; 51701; 70450; 71020; 72125; 80048; 80306; 80307; 80320; 80329; 81001; 81003; 81025; 82009; 82550; 83036; 83605; 83735; 84484; 85025; 85379; 87150; 87275; 87276; 87491; 87591; 93005; 96361; 96365; 96367; 96374; 96375; 99218; 99285; A9270; J1815; J2060; 80053; 87086

== ENCOUNTER 2017-11-13 14:27 | Emergency (ER) | payer BC ==
--- NOTE | 2017-11-13 16:00 | ED Physician Documentation ---
PD HPI HEENT - Stated complaint Stated Complaint: TOOTH PX - Chief complaint Chief Complaint: Heent - History obtained from History obtained from: Patient - History of Present Illness Timing - onset: How many days ago (2-3) Timing - duration: Days Timing - details: Gradual onset, Still present Location: Mouth (left lower gum at 3rd molar area) Worsens: Swalllowing, Temperatures Associated symptoms: No: Fever, Trismus, Swollen nodes Similar symptoms before: Has not had sx before Recently seen: Not recently seen Review of Systems Constitutional: denies: Fever, Chills Ears: denies: Ear pain Throat: reports: Dental pain / toothache. denies: Oral lesions / sores, Sore throat Respiratory: denies: Cough PD PAST MEDICAL HISTORY - Past Medical History Past Medical History: Yes Cardiovascular: Hypertension Respiratory: Asthma Neuro: Headache/migraine Endocrine/Autoimmune: Type 2 diabetes GI: Ulcers Psych: Anxiety, Bipolar disorder, Post traumatic stress disorder, Claustrophobia Musculoskeletal: Fibromyalgia - Past Surgical History Past Surgical History: Yes General: Colonoscopy, Other - Present Medications Home Medications: Ambulatory Orders Medication Instructions Recorded Confirmed Amox/Clav 875/125 [Augmentin] 1 each PO Q12H 14 Days tablet 06/01/17 06/22/17 Glipizide [Glipizide ER] 5 mg PO DAILY #30 tab.er.24 06/01/17 06/22/17 Guaifenesin/Pseudoephedrne HCl 1 each PO BID PRN #20 tab.er.12h 06/01/17 [Mucinex D ER 600-60 mg Tablet] Oxycodone HCl/Acetaminophen 1 - 2 tab PO Q4H PRN #7 tablet 06/01/17 06/22/17 [Percocet 5-325 mg Tablet] Cyclobenzaprine [Flexeril] 10 mg PO PRN 06/22/17 Cyclobenzaprine [Flexeril] 10 mg PO TID PRN 06/22/17 Chlorhexidine Gluconate [Peridex] 5 ml MM BID #118 ml 11/13/17 Clindamycin HCl [Cleocin HCl] 300 mg PO TID #20 capsule 11/13/17 Oxycodone HCl/Acetaminophen 1 each PO Q6H PRN #20 tablet 11/13/17 [Percocet 5-325 mg Tablet] - Allergies Allergies/Adverse Reactions: Allergies Allergy/AdvReac Type Severity Reaction Status Date / Time chocolate flavor Allergy Anaphylaxis Verified 06/22/17 19:33 Iodinated Contrast- Oral and Allergy Hives Verified 06/22/17 10:57 IV Dye [Iodinated Contrast Media - IV Dye] penicillinase Allergy nausea, Verified 11/13/17 14:45 dizziness, syncope hydromorphone HCl * AdvReac Unknown Hallucinati Verified 06/22/17 10:57 [From Dilaudid] ons - Social History Does the pt smoke?: Yes Smoking Status: Current every day smoker Does the pt drink ETOH?: Yes Does the pt have substance abuse?: No - Immunizations Immunizations are current?: Yes - POLST Patient has POLST: No PD ED PE NORMAL - Vitals Vital signs reviewed: Yes - General General: Alert and oriented X 3, No acute distress, Well developed/nourished - HEENT HEENT: Pharynx benign. No: Dentition benign (the gum behind 3rd molar on lower left with swelling and redness and overlaps the back of the tooth. No purulence nor fluctuance. ) - Neck Neck: Supple, no meningeal sign, No adenopathy - Cardiac Cardiac: RRR, No murmur - Respiratory Respiratory: Clear bilaterally - Abdomen Abdomen: Soft, Non tender - Derm Derm: Normal color, Warm and dry - Neuro Neuro: Alert and oriented X 3, No motor deficit, Normal speech Results - Vitals Vitals: Oxygen O2 Source Room air PD MEDICAL DECISION MAKING - ED course Complexity details: considered differential (gum infection behind lower left 3rd molar with partial tissue impaction. ), d/w patient Departure - Departure Disposition: Home, Self Care Clinical Impression: Dental infection Condition: Stable Record reviewed to determine appropriate education?: Yes Instructions: ED Abscess Dental Prescriptions: Chlorhexidine Gluconate [Peridex] 5 ml MM BID #118 ml Clindamycin HCl [Cleocin HCl] 300 mg PO TID #20 capsule Oxycodone HCl/Acetaminophen [Percocet 5-325 mg Tablet] 1 each PO Q6H PRN #20 tablet PRN Reason: Pain Comments: Continue some ibuprofen 3 times a day. Add Tylenol or Percocet if needed for pain. Clindamycin 3 times a day for a week for the infection. Use ondansetron if needed for nausea. Use antiseptic mouth rinse chlorhexidine 3 or 4 times daily especially around the gum area that is involved. Recheck if not improving over the next 2-3 days. Follow-up with a dentist when you are able to get an appointment. Discharge Date/Time: 11/13/17 16:20
[2017-11-13] MEDS ORDERED: oxyCOD/ACETAMIN 5 MG/325 MG TABLET PO STA (16:10)
[2017-11-13] MEDS ORDERED: ONDANSETRON ODT 4 MG TABLET TL STA (16:10)
[2017-11-13] MEDS ORDERED: CLINDAMYCIN 150 MG CAPSULE PO STA (16:11)
[2017-11-13 16:21] VITALS: BP 153/105
== END 2017-11-13 16:20 | disposition home or self-care (01) ==
LOC: ED 14:27
DX: K04.7 Periapical abscess without sinus (principal); I10 Essential (primary) hypertension; E11.9 Type 2 diabetes mellitus without complications; F17.200 Nicotine dependence, unspecified, uncomplicated
CPT/HCPCS: 99283; A9270; Q0162

== ENCOUNTER 2018-01-22 08:00 | Outpatient (CLI) | payer BC | END 2018-01-22 08:01 | LOC: LAB.R 08:00 | PROVIDERS: ATTEND Obstetrics & Gynecology | DX: N76.0 Acute vaginitis (principal) | CPT/HCPCS: 87480; 87510; 87660 ==

== ENCOUNTER 2018-04-02 08:00 | Outpatient (CLI) | payer SELFPAY | END 2018-04-02 08:01 | disposition home or self-care (01) | LOC: LAB.R 08:00 | PROVIDERS: ATTEND Nurse Practitioner Obstetrics & Gynecology | DX: N76.0 Acute vaginitis (principal) | CPT/HCPCS: 87480; 87510; 87660 ==

== ENCOUNTER 2018-04-21 07:31 | Emergency (ER) | payer OTHER ==
[2018-04-21] MEDS ORDERED: SODIUM CHLORIDE 0.9% 1,000 ML IV ONE ×2 (08:04→08:59)
[2018-04-21] MEDS ORDERED: DEXAMETHASONE 10 MG/ML VIAL IVP STA (08:04)
[2018-04-21] MEDS ORDERED: KETOROLAC 60 MG/2 ML VIAL IVP STA (08:04)
[2018-04-21] MEDS ORDERED: diphenhydrAMINE INJ 50 MG/ML VIAL IVP STA (08:05)
[2018-04-21] MEDS ORDERED: PROCHLORPERAZINE 10 MG/2 ML VIAL IVP STA (08:05)
--- NOTE | 2018-04-21 08:08 | ED Physician Documentation ---
PD HPI HEADACHE - Stated complaint Stated Complaint: MIGRAINE - Chief complaint Chief Complaint: Neuro - History obtained from History obtained from: Patient, Family - History of Present Illness Timing - onset: How many days ago (4) Timing - onset during: Rest Timing - duration: Days (4) Timing - details: Gradual onset, Still present Location: Back, Left Quality: Throbbing Associated symptoms: Stiff neck, Nausea, Vomiting, Numbness (to the left leg). No: Fever, Weakness Improved by: Rest, Dark room Worsened by: Light, Noise, Moving Contributing factors: No: Anticoagulated, Possible carbon monoxide, Hypertension , Recent illness Similar symptoms before: Diagnosis (migraine) Recently seen: Not recently seen - Additional information Additional information: 42-year-old female with a history of migraine headache has had a headache for the past 4 days. She states that this is a typical migraine headache for her and that she has some pain at the base of her neck especially on the left side. She states that she will occasionally get aura before a headache but did not have aura prior to the onset of this headache. 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 She is come in this morning for treatment. She states that she has some numbness to her left leg. Review of Systems Constitutional: reports: Sweats. denies: Fever Eyes: denies: Decreased vision Ears: denies: Ear pain Nose: denies: Rhinorrhea / runny nose, Congestion Throat: denies: Sore throat Cardiac: denies: Chest pain / pressure, Palpitations Respiratory: denies: Dyspnea, Cough GI: reports: Nausea, Vomiting. denies: Abdominal Pain : denies: Dysuria, Frequency Skin: denies: Rash Musculoskeletal: reports: Neck pain. denies: Back pain, Extremity pain Neurologic: reports: Numbness (To the left leg), Headache. denies: Generalized weakness, Focal weakness, Difficulty speaking, Confused, Altered mental status, Head injury, LOC PD PAST MEDICAL HISTORY - Past Medical History Cardiovascular: Hypertension Respiratory: Asthma Endocrine/Autoimmune: Type 2 diabetes GI: Ulcers Psych: Anxiety, Bipolar disorder, Post traumatic stress disorder, Claustrophobia Musculoskeletal: Fibromyalgia - Past Surgical History Past Surgical History: Yes General: Colonoscopy, Other - Present Medications Home Medications: Ambulatory Orders Medication Instructions Recorded Confirmed Cyclobenzaprine [Flexeril] 10 mg PO PRN 10/13/17 - Allergies Allergies/Adverse Reactions: Allergies Allergy/AdvReac Type Severity Reaction Status Date / Time chocolate flavor Allergy Anaphylaxis Verified 06/22/17 19:33 Iodinated Contrast- Oral and Allergy Hives Verified 06/22/17 10:57 IV Dye [Iodinated Contrast Media - IV Dye] penicillinase Allergy nausea, Verified 11/13/17 14:45 dizziness, syncope hydromorphone HCl * AdvReac Unknown Hallucinati Verified 04/21/18 07:43 [From Dilaudid] ons - Social History Does the pt smoke?: Yes Smoking Status: Current every day smoker Does the pt drink ETOH?: Yes Does the pt have substance abuse?: No - Immunizations Immunizations are current?: Yes - POLST Patient has POLST: No PD ED PE NORMAL - Vitals Vital signs reviewed: Yes (hypertensive ) - General General: Alert and oriented X 3, Well developed/nourished, Other (resting in a dark room appears to be in pain and is crying ) - HEENT HEENT: Atraumatic, PERRL, EOMI, Ears normal, Moist mucous membranes - Neck Neck: Supple, no meningeal sign, No bony TTP, Other (There is dense spasm to the trapezius at the insertion to the occiput. ) - Cardiac Cardiac: RRR, No murmur - Respiratory Respiratory: No respiratory distress, Clear bilaterally - Abdomen Abdomen: Soft, Non tender - Back Back: No CVA TTP, No spinal TTP - Derm Derm: Normal color, Warm and dry, No rash - Extremities Extremities: No deformity, No edema - Neuro Neuro: Alert and oriented X 3, coach operator 2-12 intact, No motor deficit, No sensory deficit, Normal speech Eye Opening: Spontaneous Motor: Obeys Commands Verbal: Oriented GCS Score: 15 - Psych Psych: Normal mood, Normal affect Results - Vitals Vitals: Vital Signs - 24 hr 04/21/18 04/21/18 07:36 09:05 Temperature 36.9 C Heart Rate 92 87 Respiratory 18 18 Rate Blood Pressure 175/108 H 160/95 H O2 Saturation 94 97 Oxygen O2 Source Room air - Labs Labs: Laboratory Tests 04/21/18 04/21/18 04/21/18 07:40 08:05 08:05 WBC 8.9 RBC 4.56 Hgb 13.8 Hct 39.7 MCV 86.9 MCH 30.3 MCHC 34.8 RDW 12.7 Plt Count 276 MPV 8.5 Neut # (Auto) 4.9 Lymph # (Auto) 3.1 Platte # (Auto) 0.8 Eos # (Auto) 0.1 Baso # (Auto) 0.0 Absolute Nucleated RBC 0.00 Nucleated RBC % 0.0 Sodium 129 L Potassium 4.1 Chloride 97 L Carbon Dioxide 22 Anion Gap 10.0 BUN 13 Creatinine 0.6 Estimated GFR (MDRD) 111 Glucose 403 H POC Whole Bld Glucose Calcium 8.9 Total Bilirubin 0.8 AST 21 ALT 25 Alkaline Phosphatase 124 H Total Protein 7.2 Albumin 3.7 Globulin 3.5 Albumin/Globulin Ratio 1.1 Lipase 37 Urine Color YELLOW Urine Clarity HAZY Urine pH 6.0 Ur Specific Edison <=1.005 Urine Protein NEGATIVE Urine Glucose (UA) >=1000 H Urine Ketones TRACE Urine Occult Blood LARGE H Urine Nitrite NEGATIVE Urine Bilirubin NEGATIVE Urine Urobilinogen 0.2 (NORMAL) Ur Leukocyte Esterase NEGATIVE Urine RBC 11-25 H Urine WBC 0-3 Ur Squamous Epith Cells FEW Squamous Urine Bacteria Few Ur Microscopic Review INDICATED Urine Culture Comments NOT INDICATED Urine HCG, Qual NEGATIVE 04/21/18 09:37 WBC RBC Hgb Hct MCV MCH MCHC RDW Plt Count MPV Neut # (Auto) Lymph # (Auto) Platte # (Auto) Eos # (Auto) Baso # (Auto) Absolute Nucleated RBC Nucleated RBC % Sodium Potassium Chloride Carbon Dioxide Anion Gap BUN Creatinine Estimated GFR (MDRD) Glucose POC Whole Bld Glucose 264 H Calcium Total Bilirubin AST ALT Alkaline Phosphatase Total Protein Albumin Globulin Albumin/Globulin Ratio Lipase Urine Color Urine Clarity Urine pH Ur Specific Edison Urine Protein Urine Glucose (UA) Urine Ketones Urine Occult Blood Urine Nitrite Urine Bilirubin Urine Urobilinogen Ur Leukocyte Esterase Urine RBC Urine WBC Ur Squamous Epith Cells Urine Bacteria Ur Microscopic Review Urine Culture Comments Urine HCG, Qual Procedures - IVC sono (time) 0850 Bedside IVC sono: IVC measures (cm) (0.88), IVC collapsed c insp (cm) (complete) , Dehydration (est 2 liter deficit) PD MEDICAL DECISION MAKING - ED course Complexity details: reviewed old records, reviewed results, re-evaluated patient , considered differential, d/w patient, d/w family ED course: 50-year-old female with type 2 diabetes has come to the emergency department with a headache and vomiting with a history of migraine headaches. She is treated in the emergency department for migraine with a mixture of saline, Benadryl, Compazine, Toradol, and dexamethasone. Workup of her blood revealed unremarkable blood indices and electrolyte abnormalities consistent with untreated type 2 diabetes. The patient is currently not taking diabetic medication and she states that she checks her sugar about twice per week and the machine has been reading high. She has recently started her menses and does have some blood in her urine. The patient's diabetes will need further treatment here in the emergency department and more fluid and insulin are administered. She has an estimated volume depletion of approximately 2 L. The patient is administered one liter of saline and 10 units of regular insulin IV with improvement of the blood sugar from over 400 to 260. The patient has refused further treatment and requests to go home. She refused script for oral medications. A strong recommendation to follow up with a PMD is made specifically for treatment of diabetes. The patient has lost her health care insurance and has not been following up. - Sepsis Event Vital Signs: Vital Signs - 24 hr 04/21/18 04/21/18 07:36 09:05 Temperature 36.9 C Heart Rate 92 87 Respiratory 18 18 Rate Blood Pressure 175/108 H 160/95 H O2 Saturation 94 97 Oxygen O2 Source Room air Departure - Departure Disposition: 01 Home, Self Care Clinical Impression: Dehydration Headache, migraine Qualifiers: Migraine type: without aura Status migrainosus presence: without status migrainosus Intractability: not intractable Qualified Code(s): G43.009 - Migraine without aura, not intractable, without status migrainosus Hyperglycemia due to type 2 diabetes mellitus Qualifiers: Diabetes mellitus group home insulin use: without ferry terminal agent use Qualified Code(s ): E11.65 - Type 2 diabetes mellitus with hyperglycemia Condition: Stable Instructions: ED Dehydration, ED Headache Migraine, ED Diabetes General Info Follow-Up: Deana Lynne PA-C [Provider Admit Priv/Credential] - Comments: Today in addition to your headache your blood sugar was markedly elevated and you were significantly dehydrated. Treatment of your diabetes is imperative for long-term survival. Follow-up with your primary care doctor.
[2018-04-21 08:24] LABS: BILIRUBIN,URINE NEGATIVE (NEGATIVE); GLUCOSE, URINE (UA) >=1000 mg/dL (NEGATIVE); KETONES,URINE (UA) TRACE mg/dL (NEGATIVE); LEUKOCYTE ESTERASE, URINE NEGATIVE (NEGATIVE); NITRITE,URINE NEGATIVE (NEGATIVE); OCCULT BLOOD,URINE LARGE (NEGATIVE); PROTEIN,URINE NEGATIVE (NEGATIVE); UROBILINOGEN,URINE 0.2 (NORMAL) E.U./dL (NORMAL)
[2018-04-21 08:26] LABS: BASOPHILS % (AUTO) 0.4 %; EOSINOPHILS # (AUTO) 0.1 10^3/uL (0.0-0.7); EOSINOPHILS % (AUTO) 1.6 %; HGB - HEMOGLOBIN 13.8 g/dL (12.0-16.0); LYMPHOCYTES # (AUTO) 3.1 10^3/uL (1.5-3.5); LYMPHOCYTES % (AUTO) 34.3 %; MEAN CORPUSCULAR HEMOGLOBIN 30.3 pg (27.0-31.0); MEAN CORPUSCULAR HGB CONC 34.8 g/dL (32.0-36.0); MEAN CORPUSCULAR VOLUME 86.9 fL (81.0-99.0); MEAN PLATELET VOLUME 8.5 fL (7.9-10.8); MONOCYTES # (AUTO) 0.8 10^3/uL (0.0-1.0); MONOCYTES % (AUTO) 8.4 %; NEUTROPHILS # (AUTO) 4.9 10^3/uL (1.5-6.6); NEUTROPHILS % (AUTO) 55.3 %; PLT - PLATELET COUNT 276 10^3/uL (130-450); RED BLOOD COUNT 4.56 10^6/uL (4.20-5.40); RED CELL DISTRIBUTION WIDTH 12.7 % (12.0-15.0); WHITE BLOOD COUNT 8.9 x10^3/uL (4.8-10.8)
[2018-04-21 08:28] LABS: CLARITY,URINE HAZY (CLEAR); HCG UR QUAL NEGATIVE
[2018-04-21 08:37] LABS: BACTERIA,URINE Few /HPF (None Seen); SQUAMOUS EPITHELIAL CELL,UR FEW Squamous (<= Few)
[2018-04-21 08:39] LABS: ALBUMIN 3.7 g/dL (3.2-5.5); ALBUMIN/GLOBULIN RATIO 1.1 (1.0-2.2); BILIRUBIN,TOTAL 0.8 mg/dL (0.2-1.0); CALCIUM 8.9 mg/dL (8.5-10.3); CREATININE 0.6 mg/dL (0.4-1.0); TOTAL PROTEIN 7.2 g/dL (6.7-8.2)
[2018-04-21] MEDS ORDERED: INSULIN REGULAR HUMAN 100 UNIT/1 ML 10 ML MDV IVP STA (08:58)
[2018-04-21 10:05] VITALS: BP 157/100
== END 2018-04-21 10:05 | disposition home or self-care (01) ==
LOC: ED 07:31
DX: E86.0 Dehydration (principal); G43.009 Migraine without aura, not intractable, without status migrainosus; E11.65 Type 2 diabetes mellitus with hyperglycemia; I10 Essential (primary) hypertension; F17.200 Nicotine dependence, unspecified, uncomplicated
CPT/HCPCS: 36415; 80053; 81001; 81025; 83690; 85025; 96361; 96374; 96375; 99284; J1200; J1815; 81003; 87086

== ENCOUNTER 2018-09-19 20:25 | Emergency (ER) | payer OTHER ==
[2018-09-19] MEDS ORDERED: IPRATROPIUM/ALBUTEROL 3 ML NEB INH STA (20:44)
--- NOTE | 2018-09-19 21:44 | ED Physician Documentation ---
PD HPI URI - Stated complaint Stated Complaint: COLD SYMPTOMS/SOA - Chief complaint Chief Complaint: Resp - History obtained from History obtained from: Patient PD PAST MEDICAL HISTORY - Past Medical History Cardiovascular: Hypertension Respiratory: Asthma Endocrine/Autoimmune: Type 2 diabetes GI: Ulcers Psych: Anxiety, Bipolar disorder, Post traumatic stress disorder, Claustrophobia Musculoskeletal: Fibromyalgia - Past Surgical History Past Surgical History: Yes General: Colonoscopy, Other - Present Medications Home Medications: Ambulatory Orders Medication Instructions Recorded Confirmed No Known Home Medications 09/19/18 09/19/18 - Allergies Allergies/Adverse Reactions: Allergies Allergy/AdvReac Type Severity Reaction Status Date / Time chocolate flavor Allergy Anaphylaxis Verified 09/19/18 20:36 Iodinated Contrast- Oral and Allergy Hives Verified 09/19/18 20:36 IV Dye [Iodinated Contrast Media - IV Dye] penicillinase Allergy nausea, Verified 09/19/18 20:36 dizziness, syncope hydromorphone HCl * AdvReac Unknown Hallucinati Verified 09/19/18 20:36 [From Dilaudid] ons - Social History Does the pt smoke?: Yes Smoking Status: Current every day smoker Does the pt drink ETOH?: Yes Does the pt have substance abuse?: No - Immunizations Immunizations are current?: Yes - POLST Patient has POLST: No Results - Vitals Vitals: Vital Signs - 24 hr 09/19/18 09/19/18 20:34 20:56 Temperature 36.4 C L Heart Rate 117 H 117 H Respiratory 24 22 Rate Blood Pressure 145/100 H O2 Saturation 100 Oxygen O2 Source Room air
--- NOTE | 2018-09-19 21:51 | ED Physician Documentation ---
PD HPI DYSPNEA - Stated complaint Stated Complaint: COLD SYMPTOMS/SOA - Chief complaint Chief Complaint: Resp - History obtained from History obtained from: Patient - History of Present Illness Timing - onset: How many days ago (6) Timing - duration: Days Timing - details: Gradual onset, Waxing and waning Inciting event(s): Out of meds Improved by: Rest Worsened by: Exertion, Coughing Associated symptoms: Fever (Tmax 102.1), Cough, Wheezing. No: Chest pain / discomfort Similar symptoms before: Diagnosis (asthma) Recently seen: Not recently seen - Additional information Additional information: c/o 5-6 days of rhinorrhea, nasal congestion, dry cough, fever (Tmax 102.1 but no fevers since yesterday). She was unable to find her rescue inhaler Review of Systems Constitutional: reports: Fever Ears: denies: Ear pain Nose: reports: Rhinorrhea / runny nose, Congestion. denies: Sinus pressure / pain Cardiac: denies: Chest pain / pressure Respiratory: reports: Dyspnea, Cough, Wheezing GI: reports: Reviewed and negative : denies: Dysuria, Frequency PD PAST MEDICAL HISTORY - Past Medical History Cardiovascular: Hypertension Respiratory: Asthma Endocrine/Autoimmune: Type 2 diabetes GI: Ulcers Psych: Anxiety, Bipolar disorder, Post traumatic stress disorder, Claustrophobia Musculoskeletal: Fibromyalgia - Past Surgical History Past Surgical History: Yes General: Colonoscopy, Other - Present Medications Home Medications: Ambulatory Orders Medication Instructions Recorded Confirmed Albuterol Sulf [Ventolin Hfa 1 - 2 puffs INH Q4HR PRN #1 inhaler 09/19/18 Inhaler] predniSONE [Prednisone] 40 mg PO DAILY 4 Days #8 tablet 09/19/18 - Allergies Allergies/Adverse Reactions: Allergies Allergy/AdvReac Type Severity Reaction Status Date / Time chocolate flavor Allergy Anaphylaxis Verified 09/19/18 20:36 Iodinated Contrast- Oral and Allergy Hives Verified 09/19/18 20:36 IV Dye [Iodinated Contrast Media - IV Dye] penicillinase Allergy nausea, Verified 09/19/18 20:36 dizziness, syncope hydromorphone HCl * AdvReac Unknown Hallucinati Verified 09/19/18 20:36 [From Dilaudid] ons - Social History Does the pt smoke?: Yes Smoking Status: Current every day smoker Does the pt drink ETOH?: Yes Does the pt have substance abuse?: No - Immunizations Immunizations are current?: Yes - POLST Patient has POLST: No PD ED PE NORMAL - Vitals Vital signs reviewed: Yes - General General: Alert and oriented X 3, No acute distress, Well developed/nourished - HEENT HEENT: Moist mucous membranes, Pharynx benign - Neck Neck: Supple, no meningeal sign - Cardiac Cardiac: RRR, No murmur - Respiratory Respiratory: No respiratory distress PD ED PE EXPANDED - Respiratory Respiratory: Decreased breath sounds (bilaterally) Results - Vitals Vitals: Vital Signs - 24 hr 09/19/18 09/19/18 09/19/18 20:34 20:56 23:21 Temperature 36.4 C L Heart Rate 117 H 117 H 126 H Respiratory 24 22 18 Rate Blood Pressure 145/100 H 158/113 H O2 Saturation 100 100 Oxygen O2 Source Room air - Labs Labs: Laboratory Tests 09/19/18 22:35 Influenza A (Rapid) Negative Influenza B (Rapid) Negative - Rads (name of study) chest xray Radiology: Prelim report reviewed, See rad report PD MEDICAL DECISION MAKING - ED course Complexity details: reviewed results, re-evaluated patient (Patient reported significant improvement after duoneb and declined further neb treatments.), considered differential, d/w patient Departure - Departure Disposition: 01 Home, Self Care Clinical Impression: Viral URI, Asthma Condition: Good Instructions: ED Reactive Airway Disease, ED Upper Resp Infec No Abx Tx Prescriptions: Albuterol Sulf [Ventolin Hfa Inhaler] 1 - 2 puffs INH Q4HR PRN #1 inhaler PRN Reason: Shortness Of Air/Wheezing predniSONE [Prednisone] 40 mg PO DAILY 4 Days #8 tablet Forms: Activity restrictions Discharge Date/Time: 09/19/18 23:21
--- NOTE | 2018-09-19 22:37 | XRAY Report ---
Reason: cough, fever, dyspnea Procedure Date: 09/19/2018 Accession Number: [id number] / [id number] Procedure: XR - Chest 2 View X-Ray CPT Code: 06128 FULL RESULT: EXAM: CHEST RADIOGRAPHY EXAM DATE: 09/19/2018 10:30 PM. CLINICAL HISTORY: Cough. Fever. Dyspnea. COMPARISON: CHEST 2 VIEW PA/LAT 06/22/2017 2:37 PM. TECHNIQUE: 2 views. FINDINGS: Lungs/Pleura: No focal opacities evident. No pleural effusion. No pneumothorax. Normal volumes. Mediastinum: Heart and mediastinal contours are unremarkable. Other: Mild S-shaped scoliosis. IMPRESSION: Scoliosis, otherwise unremarkable 2-view chest radiography. [facility]
[2018-09-19 23:22] VITALS: BP 158/113
== END 2018-09-19 23:21 | disposition home or self-care (01) ==
LOC: ED 20:25
DX: J06.9 Acute upper respiratory infection, unspecified (principal); B97.89 Other viral agents as the cause of diseases classified elsewhere; J45.909 Unspecified asthma, uncomplicated; F17.200 Nicotine dependence, unspecified, uncomplicated; I10 Essential (primary) hypertension; E11.9 Type 2 diabetes mellitus without complications
CPT/HCPCS: 71046; 87275; 87276; 94640; 99283

== ENCOUNTER 2018-10-08 09:31 | Emergency (ER) | payer OTHER ==
--- NOTE | 2018-10-08 11:24 | ED Physician Documentation ---
PD HPI SKIN - Stated complaint Stated Complaint: FEMALE - Chief complaint Chief Complaint: Wound - History obtained from History obtained from: Patient, Family - History of Present Illness Timing - onset: How many days ago (3) Timing - duration: Days (3) Timing - details: Gradual onset, Still present Location: Genitals Quality / character: Painful, Raised, Swelling. No: Draining Associated symptoms: Myalgias. No: Fever Similar symptoms before: Diagnosis (abscess) Recently seen: Not recently seen - Additional information Additional information: 43-year-old female with history of diabetes has developed pain and swelling and redness in the right groin area and this is been present for about 3 days. She has had worsening of the pain and redness. She has had this 1 time previously on the back of her thigh which spontaneously drained and she did not go to see the doctor at that time. Review of Systems Constitutional: denies: Fever Eyes: denies: Decreased vision Ears: denies: Ear pain Nose: denies: Rhinorrhea / runny nose, Congestion Throat: denies: Sore throat Cardiac: denies: Chest pain / pressure, Palpitations Respiratory: denies: Dyspnea, Cough GI: denies: Abdominal Pain, Nausea, Vomiting : reports: Frequency. denies: Dysuria Skin: denies: Rash Musculoskeletal: reports: Extremity pain. denies: Neck pain, Back pain PD PAST MEDICAL HISTORY - Past Medical History Past Medical History: Yes Cardiovascular: Hypertension Respiratory: Asthma Endocrine/Autoimmune: Type 2 diabetes GI: Ulcers Psych: Anxiety, Bipolar disorder, Post traumatic stress disorder, Claustrophobia Musculoskeletal: Fibromyalgia - Past Surgical History Past Surgical History: Yes General: Colonoscopy, Other - Present Medications Home Medications: Ambulatory Orders Medication Instructions Recorded Confirmed Oxycodone HCl/Acetaminophen 1 - 2 each PO Q6H PRN #14 tablet 10/08/18 [Percocet 5-325 mg Tablet] Sulfamethoxazole/Trimethoprim 1 each PO BID #14 tablet 10/08/18 [Sulfamethoxazole-Tmp Ds Tablet] glyBURIDE [Diabeta] 2.5 mg PO 0800 #14 tablet 10/08/18 - Allergies Allergies/Adverse Reactions: Allergies Allergy/AdvReac Type Severity Reaction Status Date / Time chocolate flavor Allergy Anaphylaxis Verified 10/08/18 09:47 Iodinated Contrast- Oral and Allergy Hives Verified 10/08/18 09:47 IV Dye [Iodinated Contrast Media - IV Dye] penicillinase Allergy nausea, Verified 10/08/18 09:47 dizziness, syncope hydromorphone HCl * AdvReac Unknown Hallucinati Verified 10/08/18 09:47 [From Dilaudid] ons - Social History Does the pt smoke?: No Smoking Status: Former smoker Does the pt drink ETOH?: Yes Does the pt have substance abuse?: No - Immunizations Immunizations are current?: Yes - POLST Patient has POLST: No PD ED PE NORMAL - Vitals Vital signs reviewed: Yes (tachy and hypertensive) - General General: Alert and oriented X 3, Well developed/nourished, Other (teary eyed and appears to be in pain ) - HEENT HEENT: Atraumatic, PERRL, EOMI - Respiratory Respiratory: No respiratory distress - Female Female : Nuclear Weapons Specialist present (Luara), Other (There is an area 4cm X 2cm in the right groin that is raised, firm without obvious fluctunace. There is dark erythema and the area is markedly tender. There is no drainage. ) - Derm Derm: Normal color, Warm and dry, No rash - Extremities Extremities: No deformity, No edema - Neuro Neuro: Alert and oriented X 3, customer marketing intern 2-12 intact, No motor deficit, No sensory deficit, Normal speech Eye Opening: Spontaneous Motor: Obeys Commands Verbal: Oriented GCS Score: 15 - Psych Psych: Normal mood Results - Vitals Vitals: Vital Signs - 24 hr 10/08/18 09:45 Temperature 36.8 C Heart Rate 109 H Respiratory 20 Rate Blood Pressure 176/113 H O2 Saturation 96 Oxygen O2 Source Room air - Labs Labs: Laboratory Tests 10/08/18 10:29 POC Whole Bld Glucose 566 H* Procedures - Bedside sono Bedside sono by EMP: With use of bedside ultrasound the right groin area is imaged there are septations within the mass but no free fluid. - IVC sono (time) 1120 Bedside IVC sono: IVC measures (cm) (1.51), Euvolemia PD MEDICAL DECISION MAKING - ED course Complexity details: reviewed old records, reviewed results, re-evaluated bola baron, considered differential, d/w patient, d/w family ED course: 43-year-old female with a abscess in the right groin has a history of diabetes and she is not under treatment at this time. She comes into the emergency department today tachycardic with a blood sugar over 500 and my initial instinct was to check her laboratory studies and start IV for potential dehydration, however when I interrogated her inferior vena cava she was not dehydrated in any range to require IV fluid. I will restart her glipizide and we will place her on some . Departure - Departure Disposition: Home, Self Care Clinical Impression: Abscess DM2 (diabetes mellitus, type 2) Qualifiers: Diabetes mellitus terminal operator insulin use: without mcfp use Diabetes mellitus complication status: with hyperglycemia Qualified Code(s): E11.65 - Type 2 diabetes mellitus with hyperglycemia Condition: Stable Instructions: ED Staph Infec Abx Tx Only, ED Hyperglycemia Diabetic Follow-Up: Deana Lynne PA-C [Provider Admit Priv/Credential] - Prescriptions: glyBURIDE [Diabeta] 2.5 mg PO 0800 #14 tablet Oxycodone HCl/Acetaminophen [Percocet 5-325 mg Tablet] 1 - 2 each PO Q6H PRN #14 tablet PRN Reason: pain Sulfamethoxazole/Trimethoprim [Sulfamethoxazole-Tmp Ds Tablet] 1 each PO BID #14 tablet
[2018-10-08 12:50] VITALS: BP 163/110
== END 2018-10-08 12:50 | disposition home or self-care (01) ==
LOC: ED 09:31
DX: L02.214 Cutaneous abscess of groin (principal); E11.65 Type 2 diabetes mellitus with hyperglycemia; Z79.84 Long term (current) use of oral hypoglycemic drugs; I10 Essential (primary) hypertension; Z87.891 Personal history of nicotine dependence
CPT/HCPCS: 80053; 82009; 82803; 83690; 84484; 85025; 99283

== ENCOUNTER 2018-10-29 10:47 | Emergency (ER) | payer OTHER ==
[2018-10-29 11:17] LABS: BASOPHILS # (AUTO) 0.1 10^3/uL (0.0-0.1); BASOPHILS % (AUTO) 0.8 %; EOSINOPHILS # (AUTO) 0.1 10^3/uL (0.0-0.7); EOSINOPHILS % (AUTO) 1.3 %; HGB - HEMOGLOBIN 13.9 g/dL (12.0-16.0); LYMPHOCYTES % (AUTO) 33.5 %; MEAN CORPUSCULAR HEMOGLOBIN 30.2 pg (27.0-31.0); MEAN CORPUSCULAR HGB CONC 33.9 g/dL (32.0-36.0); MEAN CORPUSCULAR VOLUME 89.1 fL (81.0-99.0); MEAN PLATELET VOLUME 8.5 fL (7.9-10.8); MONOCYTES # (AUTO) 0.6 10^3/uL (0.0-1.0); MONOCYTES % (AUTO) 6.7 %; NEUTROPHILS # (AUTO) 5.2 10^3/uL (1.5-6.6); NEUTROPHILS % (AUTO) 57.7 %; PLT - PLATELET COUNT 297 10^3/uL (130-450); RED BLOOD COUNT 4.61 10^6/uL (4.20-5.40); RED CELL DISTRIBUTION WIDTH 12.9 % (12.0-15.0); WHITE BLOOD COUNT 9.1 x10^3/uL (4.8-10.8)
[2018-10-29 11:30] LABS: ALBUMIN 3.6 g/dL (3.2-5.5); ALBUMIN/GLOBULIN RATIO 1.1 (1.0-2.2); BILIRUBIN,TOTAL 0.6 mg/dL (0.2-1.0); CALCIUM 8.9 mg/dL (8.5-10.3); CREATININE 0.6 mg/dL (0.4-1.0); TOTAL PROTEIN 6.9 g/dL (6.7-8.2)
--- NOTE | 2018-10-29 11:49 | XRAY Report ---
Reason: chest pain Procedure Date: 10/29/2018 Accession Number: [id number] / [id number] Procedure: XR - Chest 1 View X-Ray CPT Code: 03426 FULL RESULT: EXAM: CHEST RADIOGRAPHY EXAM DATE: 10/29/2018 11:33 AM. CLINICAL HISTORY: Chest pain. COMPARISON: CHEST 2 VIEW 09/19/2018 10:14 PM. TECHNIQUE: 1 view. FINDINGS: Lungs/Pleura: No focal opacities evident. No pleural effusion. No pneumothorax. Mediastinum: Within exam limitations, the cardiomediastinal contour is normal. Other: None. IMPRESSION: Normal single view chest. [facility]
[2018-10-29 12:18] LABS: BILIRUBIN,URINE NEGATIVE (NEGATIVE); GLUCOSE, URINE (UA) >=1000 mg/dL (NEGATIVE); KETONES,URINE (UA) 15 mg/dL (NEGATIVE); LEUKOCYTE ESTERASE, URINE NEGATIVE (NEGATIVE); NITRITE,URINE NEGATIVE (NEGATIVE); OCCULT BLOOD,URINE SMALL (NEGATIVE); PH,URINE 5.5 PH (5.0-7.5); PROTEIN,URINE 30 mg/dL (NEGATIVE); UROBILINOGEN,URINE 0.2 (NORMAL) E.U./dL (NORMAL)
[2018-10-29 12:23] LABS: CLARITY,URINE CLEAR (CLEAR); HCG UR QUAL NEGATIVE
[2018-10-29 12:27] LABS: BACTERIA,URINE Rare /HPF (None Seen); RBC,URINE 0-5 /HPF (0-5); SQUAMOUS EPITHELIAL CELL,UR MOD Squamous (<= Few)
--- NOTE | 2018-10-29 12:35 | ED Physician Documentation ---
PD HPI CHEST PAIN - Stated complaint Stated Complaint: CHEST PX - Chief complaint Chief Complaint: Cardiac - History obtained from History obtained from: Patient - History of Present Illness Timing - onset: How many weeks ago (2) Timing - onset during: Rest Timing - duration: Weeks (2) Timing - details: Gradual onset, Now resolved, Waxing and waning Quality: Pressure Location: Substernal, Left chest Radiation: Jaw, Neck Improved by: Rest Worsened by: Other (hot shower) Associated symptoms: No: Shortness of air, Diaphoresis, Nausea, Vomiting, Feeling faint / dizzy, General Weakness, Palpitations, Cough Similar symptoms before: Has not had sx before Recently seen: Clinic, Emergency Dept - Additional information Additional information: 43-year-old female with untreated type 2 diabetes has developed chest pain over the past 2 weeks. She states the pain is worse when she is in a hot shower and she has had pain at rest the pain is undulating and intermittent. She does have some radiation of this pain into the left shoulder she has not had nausea or vomiting she has not had diaphoresis or lightheadedness. She was seen by her primary care doctor in the clinic today with this chest pain and she was referred here to the emergency department for workup to include cardiac enzymes and chest x-ray. The patient has an abscess to the right groin that has spontaneously drained twice and she has gone back into see her primary care doctor with this today. She was examined and the primary recommended restarting the antibiotic. The patient has had uncontrolled diabetes for months and she has been dehydrated with sugars running in the 3-500 range and she is refused intravenous hydration 3 weeks ago. 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 She has been on insulin previously she does have test strips and she is refusing IV hydration in the emergency department today. Review of Systems Constitutional: denies: Fever Eyes: denies: Decreased vision Ears: denies: Ear pain Nose: denies: Rhinorrhea / runny nose, Congestion Throat: denies: Sore throat Cardiac: reports: Chest pain / pressure. denies: Palpitations, Pedal edema, Calf pain Respiratory: denies: Dyspnea, Cough GI: denies: Abdominal Pain, Nausea, Vomiting, Constipation, Diarrhea : denies: Dysuria, Frequency Skin: reports: Lesions Musculoskeletal: denies: Neck pain, Back pain, Extremity pain Neurologic: denies: Generalized weakness, Focal weakness, Numbness PD PAST MEDICAL HISTORY - Past Medical History Cardiovascular: Hypertension Respiratory: Asthma Endocrine/Autoimmune: Type 2 diabetes GI: Ulcers Psych: Anxiety, Bipolar disorder, Post traumatic stress disorder, Claustrophobia Musculoskeletal: Fibromyalgia - Past Surgical History Past Surgical History: Yes General: Colonoscopy, Other - Present Medications Home Medications: Ambulatory Orders Medication Instructions Recorded Confirmed Oxycodone HCl/Acetaminophen 1 - 2 each PO Q6H PRN #14 tablet 10/08/18 [Percocet 5-325 mg Tablet] Sulfamethoxazole/Trimethoprim 1 each PO BID #14 tablet 10/08/18 [Sulfamethoxazole-Tmp Ds Tablet] glyBURIDE [Diabeta] 2.5 mg PO 0800 #14 tablet 10/08/18 Sulfamethoxazole/Trimethoprim 1 each PO BID #14 tablet 10/29/18 [Sulfamethoxazole-Tmp Ds Tablet] - Allergies Allergies/Adverse Reactions: Allergies Allergy/AdvReac Type Severity Reaction Status Date / Time chocolate flavor Allergy Anaphylaxis Verified 10/08/18 09:47 Iodinated Contrast- Oral and Allergy Hives Verified 10/08/18 09:47 IV Dye [Iodinated Contrast Media - IV Dye] penicillinase Allergy nausea, Verified 10/08/18 09:47 dizziness, syncope hydromorphone HCl * AdvReac Unknown Hallucinati Verified 10/08/18 09:47 [From Dilaudid] ons - Social History Does the pt smoke?: No Smoking Status: Former smoker Does the pt drink ETOH?: Yes Does the pt have substance abuse?: No - Immunizations Immunizations are current?: Yes - POLST Patient has POLST: No PD ED PE NORMAL - Vitals Vital signs reviewed: Yes (hypertensive ) - General General: Alert and oriented X 3, No acute distress, Well developed/nourished - HEENT HEENT: Atraumatic, PERRL, EOMI - Neck Neck: Supple, no meningeal sign, No bony TTP - Cardiac Cardiac: RRR, No murmur - Respiratory Respiratory: No respiratory distress, Clear bilaterally, Other (no chest wall tenderness ) - Abdomen Abdomen: Soft, Non tender - Female Female : Pt declined (The patient states her primary care doctor examined her today and she does not want to be examined again. She states she has pressure to the absces area. ) - Back Back: No CVA TTP, No spinal TTP - Derm Derm: Normal color, Warm and dry, No rash - Extremities Extremities: No deformity, No edema - Neuro Neuro: Alert and oriented X 3, account services specialist 2-12 intact, No motor deficit, No sensory deficit, Normal speech Eye Opening: Spontaneous Motor: Obeys Commands Verbal: Oriented GCS Score: 15 - Psych Psych: Normal mood, Normal affect Results - Vitals Vitals: Vital Signs - 24 hr 10/29/18 10/29/18 10:49 11:15 Temperature 36.8 C Heart Rate 89 87 Respiratory 18 18 Rate Blood Pressure 149/111 H 154/94 H O2 Saturation 99 99 Oxygen O2 Source Room air - EKG (time done) 1055 Rate: Rate (enter#) (93) Rhythm: NSR Ischemia: Q waves Compare to prior EKG: Changed from prior EKG (SPT 06-22-2017 rate has slowed. ) Computer interpretation: Agree with computer - Labs Labs: Laboratory Tests 10/29/18 10/29/18 10/29/18 11:10 11:10 11:10 WBC 9.1 RBC 4.61 Hgb 13.9 Hct 41.1 MCV 89.1 MCH 30.2 MCHC 33.9 RDW 12.9 Plt Count 297 MPV 8.5 Neut # (Auto) 5.2 Lymph # (Auto) 3.0 [place] # (Auto) 0.6 Eos # (Auto) 0.1 Baso # (Auto) 0.1 Absolute Nucleated RBC 0.00 Nucleated RBC % 0.0 Sodium 127 L Potassium 3.7 Chloride 95 L Carbon Dioxide 22 Anion Gap 10.0 BUN 12 Creatinine 0.6 Estimated GFR (MDRD) 110 Glucose 355 H Calcium 8.9 Total Bilirubin 0.6 AST 20 ALT 23 Alkaline Phosphatase 142 H Troponin I < 0.04 Total Protein 6.9 Albumin 3.6 Globulin 3.3 Albumin/Globulin Ratio 1.1 Lipase 30 Urine Color Urine Clarity Urine pH Ur Specific [place] Urine Protein Urine Glucose (UA) Urine Ketones Urine Occult Blood Urine Nitrite Urine Bilirubin Urine Urobilinogen Ur Leukocyte Esterase Urine RBC Urine WBC Ur Squamous Epith Cells Urine Bacteria Ur Microscopic Review Urine Culture Comments Urine HCG, Qual 10/29/18 11:50 WBC RBC Hgb Hct MCV MCH MCHC RDW Plt Count MPV Neut # (Auto) Lymph # (Auto) [place] # (Auto) Eos # (Auto) Baso # (Auto) Absolute Nucleated RBC Nucleated RBC % Sodium Potassium Chloride Carbon Dioxide Anion Gap BUN Creatinine Estimated GFR (MDRD) Glucose Calcium Total Bilirubin AST ALT Alkaline Phosphatase Troponin I Total Protein Albumin Globulin Albumin/Globulin Ratio Lipase Urine Color YELLOW Urine Clarity CLEAR Urine pH 5.5 Ur Specific [place] 1.020 Urine Protein 30 H Urine Glucose (UA) >=1000 H Urine Ketones 15 H Urine Occult Blood SMALL H Urine Nitrite NEGATIVE Urine Bilirubin NEGATIVE Urine Urobilinogen 0.2 (NORMAL) Ur Leukocyte Esterase NEGATIVE Urine RBC 0-5 Urine WBC 0-3 Ur Squamous Epith Cells MOD Squamous H Urine Bacteria Rare Ur Microscopic Review INDICATED Urine Culture Comments NOT INDICATED Urine HCG, Qual NEGATIVE Procedures - IVC sono (time) 1230 Bedside IVC sono: IVC measures (cm) (1.12), IVC collapsed c insp (cm) (complete), Dehydration (est 1 liter deficit) PD MEDICAL DECISION MAKING - ED course Complexity details: reviewed old records, reviewed results, re-evaluated patient, considered differential, d/w patient ED course: 43-year-old female with a history of untreated diabetes and a inguinal abscess has developed some chest pain that has been undulating and is not currently present. She has a normal electrocardiogram and negative troponin and she has been having pain for 2 weeks. She is refusing IV hydration as this is the one finding we have is that her volume is depleted. Her volume is depleted approximately 1 L and she should be able to replete this as long as her sugar is controlled. Her primary care doctor has scripted her insulin and she will restart on that today. Patient also has abscess in the right inguinal area and we will treat this again with p.o. Septra and the patient has refused exam today she was examined earlier by her primary care. Departure - Departure Disposition: 01 Home, Self Care Clinical Impression: Atypical chest pain, Abscess DM2 (diabetes mellitus, type 2) Qualifiers: Diabetes mellitus intermediate accountant insulin use: without intermediate accountant use Diabetes mellitus complication status: with unspecified complications Qualified Code(s): E11.8 - Type 2 diabetes mellitus with unspecified complications Condition: Stable Instructions: ED Staph Infec Abx Tx Only, ED Chest Pain Atypical Unkn Cause, ED Hyperglycemia Diabetic Follow-Up: Deana Lynne PA-C [Primary Care Provider] - Prescriptions: Sulfamethoxazole/Trimethoprim [Sulfamethoxazole-Tmp Ds Tablet] 1 each PO BID #14 tablet
[2018-10-29 13:01] VITALS: BP 140/90
== END 2018-10-29 13:00 | disposition home or self-care (01) ==
LOC: ED 10:47
DX: R07.89 Other chest pain (principal); E11.8 Type 2 diabetes mellitus with unspecified complications; L02.214 Cutaneous abscess of groin; E86.0 Dehydration; I10 Essential (primary) hypertension; Z87.891 Personal history of nicotine dependence
CPT/HCPCS: 36415; 71045; 80053; 81001; 81003; 81025; 83690; 84484; 85025; 87086; 93005; 99283; 99284

== ENCOUNTER 2018-11-29 19:30 | Emergency (ER) | payer OTHER ==
--- NOTE | 2018-11-30 00:06 | ED Physician Documentation ---
PD HPI OPHTHO - Stated complaint Stated Complaint: RT EYE PX - Chief complaint Chief Complaint: Heent - History obtained from History obtained from: Patient - History of Present Illness Timing - onset: How many days ago (1-2) Timing - details: Gradual onset Pain level now: 5 Location: Right Quality / character: Aching Associated symptoms: Redness. No: Double vision, Decreased vision, Loss of vision Contributing factors: Wears glasses. No: Recent URI, FB, UV light (welding etc), Blunt trauma, Penetrating trauma Similar symptoms before: Has not had sx before Recently seen: Not recently seen Review of Systems Constitutional: reports: Reviewed and negative Eyes: reports: Photophobia, Irritation. denies: Loss of vision, Decreased v ision, Discharge PD PAST MEDICAL HISTORY - Past Medical History Cardiovascular: Hypertension Respiratory: Asthma Endocrine/Autoimmune: Type 2 diabetes GI: Ulcers Psych: Anxiety, Bipolar disorder, Post traumatic stress disorder, Claustrophobia Musculoskeletal: Fibromyalgia - Past Surgical History Past Surgical History: Yes General: Colonoscopy, Other - Present Medications Home Medications: Ambulatory Orders Medication Instructions Recorded Confirmed Oxycodone HCl/Acetaminophen 1 - 2 each PO Q6H PRN #14 tablet 10/08/18 [Percocet 5-325 mg Tablet] Sulfamethoxazole/Trimethoprim 1 each PO BID #14 tablet 10/08/18 [Sulfamethoxazole-Tmp Ds Tablet] glyBURIDE [Diabeta] 2.5 mg PO 0800 #14 tablet 10/08/18 Sulfamethoxazole/Trimethoprim 1 each PO BID #14 tablet 10/29/18 [Sulfamethoxazole-Tmp Ds Tablet] Oxycodone HCl/Acetaminophen 1 - 2 each PO Q6H PRN #10 tablet 11/30/18 [Percocet 5-325 mg Tablet] - Allergies Allergies/Adverse Reactions: Allergies Allergy/AdvReac Type Severity Reaction Status Date / Time chocolate flavor Allergy Anaphylaxis Verified 11/29/18 20:38 Iodinated Contrast- Oral and Allergy Hives Verified 11/29/18 20:38 IV Dye [Iodinated Contrast Media - IV Dye] penicillinase Allergy nausea, Verified 11/29/18 20:38 dizziness, syncope hydromorphone HCl * AdvReac Unknown Hallucinati Verified 11/29/18 20:38 [From Dilaudid] ons - Social History Does the pt smoke?: No Smoking Status: Never smoker Does the pt drink ETOH?: Yes Does the pt have substance abuse?: No - Immunizations Immunizations are current?: Yes - POLST Patient has POLST: No PD ED PE NORMAL - Vitals Vital signs reviewed: Yes - General General: Alert and oriented X 3, Well developed/nourished, Other (lights off for patient comfort) - HEENT HEENT: Atraumatic, PERRL, EOMI, Moist mucous membranes PD ED PE EXPANDED - Eyes Eyes: Right eye, Injected conj/sclera, Anterior chambers clear. No: Fluorescein uptake Results - Vitals Vitals: Oxygen O2 Source Room air PD MEDICAL DECISION MAKING - ED course Complexity details: considered differential, d/w patient Departure - Departure Disposition: 01 Home, Self Care Clinical Impression: Conjunctivitis Condition: Good Instructions: ED Conjunctivitis Nonspecific Follow-Up: Deana Lynne PA-C [Primary Care Provider] - Prescriptions: Oxycodone HCl/Acetaminophen [Percocet 5-325 mg Tablet] 1 - 2 each PO Q6H PRN #10 tablet PRN Reason: pain Forms: Activity restrictions Discharge Date/Time: 11/30/18 02:10
[2018-11-30] MEDS ORDERED: PROPARACAINE 0.5% OPHTH DROPS 15 ML RIGHTEYE STA (00:12)
[2018-11-30] MEDS ORDERED: IBUPROFEN 600 MG TABLET PO STA (00:12)
[2018-11-30] MEDS ORDERED: oxyCODONE 5 MG TABLET PO STA (02:02)
[2018-11-30] MEDS ORDERED: POLYMYXIN B/TRIMETH OPHTH DROPS RIGHTEYE STA (02:04)
[2018-11-30 02:14] VITALS: BP 185/126
== END 2018-11-30 02:10 | disposition home or self-care (01) ==
LOC: ED 19:30
DX: H10.9 Unspecified conjunctivitis (principal); I10 Essential (primary) hypertension; E11.9 Type 2 diabetes mellitus without complications
CPT/HCPCS: 99283; A9270; J3490

== ENCOUNTER 2019-03-31 01:22 | Emergency (ER) | payer OTHER ==
--- NOTE | 2019-03-31 01:36 | ED Physician Documentation ---
PD HPI ABD PAIN - Stated complaint Stated Complaint: ABD PAIN - Chief complaint Chief Complaint: Abd Pain - History obtained from History obtained from: Patient - History of Present Illness Timing - onset: How many weeks ago (2) Timing - duration: Weeks Timing - details: Gradual onset, Waxing and waning Pain level now: 8 Quality: Pain Location: RLQ Radiation: No: Chest, , Lower back, Left flank, Left shoulder, Right flank, Right shoulder, Upper back Improved by: Laying still Worsened by: Moving, Palpation Associated symptoms: No: Fever, Nausea, Vomiting, Diarrhea, Constipation, Hematuria Similar symptoms before: Work up / diagnostics (similar pain 2 weeks ago, evaluated at and diagnosed with right ovarian cyst) - Additional information Additional information: Patient complains of right lower quadrant pain. The pain begin two weeks ago, at which time she was evaluated at [facility] emergency Department, and diagnosed with right ovarian cyst. 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 However, patient says she has not had the time to attempt to make the appointment and thus has not been seen in the outpatient setting for this. She presents to this emergency department at this time due to sudden worsening right lower quadrant pain since last night. Review of Systems Constitutional: reports: Reviewed and negative Cardiac: reports: Reviewed and negative Respiratory: reports: Reviewed and negative GI: reports: Abdominal Pain. denies: Nausea, Vomiting, Constipation, Diarrhea : denies: Dysuria, Frequency Musculoskeletal: denies: Back pain PD PAST MEDICAL HISTORY - Past Medical History Cardiovascular: Hypertension Respiratory: Asthma Endocrine/Autoimmune: Type 2 diabetes GI: Ulcers Psych: Anxiety, Bipolar disorder, Post traumatic stress disorder, Claustrophobia Musculoskeletal: Fibromyalgia - Past Surgical History Past Surgical History: Yes General: Colonoscopy, Other - Present Medications Home Medications: Ambulatory Orders Medication Instructions Recorded Confirmed Oxycodone HCl/Acetaminophen 1 - 2 each PO Q6H PRN #14 tablet 10/08/18 [Percocet 5-325 mg Tablet] Sulfamethoxazole/Trimethoprim 1 each PO BID #14 tablet 10/08/18 [Sulfamethoxazole-Tmp Ds Tablet] glyBURIDE [Diabeta] 2.5 mg PO 0800 #14 tablet 10/08/18 Sulfamethoxazole/Trimethoprim 1 each PO BID #14 tablet 10/29/18 [Sulfamethoxazole-Tmp Ds Tablet] Oxycodone HCl/Acetaminophen 1 - 2 each PO Q6H PRN #10 tablet 11/30/18 [Percocet 5-325 mg Tablet] Glipizide [Glipizide Xl] 2.5 mg PO QDBREAKFAST #14 tab.er.24 03/31/19 Ondansetron Odt [Zofran] 4 mg TL Q6H PRN #10 tablet 03/31/19 Oxycodone HCl/Acetaminophen 1 - 2 each PO Q6H PRN #10 tablet 03/31/19 [Percocet 5-325 mg Tablet] - Allergies Allergies/Adverse Reactions: Allergies Allergy/AdvReac Type Severity Reaction Status Date / Time chocolate flavor Allergy Anaphylaxis Verified 03/31/19 01:28 glyburide Allergy Unknown Verified 03/31/19 01:28 Iodinated Contrast- Oral and Allergy Hives Verified 03/31/19 01:28 IV Dye [Iodinated Contrast Media - IV Dye] latex Allergy Unknown Verified 03/31/19 01:28 penicillinase Allergy nausea, Verified 03/31/19 01:28 dizziness, syncope sulfamethoxazole Allergy Unknown Verified 03/31/19 01:28 [From Bactrim] trimethoprim [From Bactrim] Allergy Unknown Verified 03/31/19 01:28 hydromorphone HCl * AdvReac Unknown Hallucinati Verified 03/31/19 01:28 [From Dilaudid] ons - Social History Does the pt smoke?: No Smoking Status: Never smoker Does the pt drink ETOH?: Yes Does the pt have substance abuse?: No - Immunizations Immunizations are current?: Yes - POLST Patient has POLST: No PD ED PE NORMAL - Vitals Vital signs reviewed: Yes - General General: Alert and oriented X 3, No acute distress, Well developed/nourished - Cardiac Cardiac: RRR, No murmur - Respiratory Respiratory: No respiratory distress, Clear bilaterally - Abdomen Abdomen: Soft, Non distended - Back Back: No CVA TTP - Derm Derm: Normal color, Warm and dry, No rash - Extremities Extremities: No edema PD ED PE EXPANDED - Abdomen Abdomen: Tender to palpation, RLQ. No: Rebound, Guarding Results - Vitals Vitals: Oxygen O2 Source Room air - Labs Labs: Laboratory Tests 03/31/19 03/31/19 03/31/19 02:23 02:23 02:23 WBC 10.1 RBC 4.68 Hgb 14.1 Hct 41.0 MCV 87.6 MCH 30.1 MCHC 34.4 RDW 12.1 Plt Count 339 MPV 10.4 Neut # (Auto) 5.2 Lymph # (Auto) 3.8 H [place] # (Auto) 0.8 Eos # (Auto) 0.2 Baso # (Auto) 0.1 Absolute Nucleated RBC 0.00 Nucleated RBC % 0.0 Sodium 131 L Potassium 4.1 Chloride 94 L Carbon Dioxide 22 Anion Gap 15.0 H BUN 13 Creatinine 0.7 Estimated GFR (MDRD) 92 Glucose 519 H* POC Whole Bld Glucose Calcium 9.3 Total Bilirubin 0.5 AST 15 ALT 19 Alkaline Phosphatase 120 Total Protein 6.9 Albumin 3.4 Globulin 3.5 Albumin/Globulin Ratio 1.0 Lipase 47 Urine Color Urine Clarity Urine pH Ur Specific [place] Urine Protein Urine Glucose (UA) Urine Ketones Urine Occult Blood Urine Nitrite Urine Bilirubin Urine Urobilinogen Ur Leukocyte Esterase Ur Microscopic Review Urine Culture Comments Urine HCG, Qual Serum Ketones NEGATIVE 03/31/19 03/31/19 03/31/19 02:31 04:00 04:45 WBC RBC Hgb Hct MCV MCH MCHC RDW Plt Count MPV Neut # (Auto) Lymph # (Auto) [place] # (Auto) Eos # (Auto) Baso # (Auto) Absolute Nucleated RBC Nucleated RBC % Sodium Potassium Chloride Carbon Dioxide Anion Gap BUN Creatinine Estimated GFR (MDRD) Glucose POC Whole Bld Glucose 421 H 361 H Calcium Total Bilirubin AST ALT Alkaline Phosphatase Total Protein Albumin Globulin Albumin/Globulin Ratio Lipase Urine Color YELLOW Urine Clarity CLEAR Urine pH 5.5 Ur Specific [place] <=1.005 Urine Protein NEGATIVE Urine Glucose (UA) >=1000 H Urine Ketones NEGATIVE Urine Occult Blood TRACE-LYSE Urine Nitrite NEGATIVE Urine Bilirubin NEGATIVE Urine Urobilinogen 0.2 (NORMAL) Ur Leukocyte Esterase NEGATIVE Ur Microscopic Review NOT INDICATED Urine Culture Comments NOT INDICATED Urine HCG, Qual NEGATIVE Serum Ketones - Rads (name of study) CT A/P Radiology: Prelim report reviewed, See rad report PD MEDICAL DECISION MAKING - ED course Complexity details: reviewed results, re-evaluated patient, considered differential, d/w patient, d/w family Departure - Departure Disposition: 01 Home, Self Care Clinical Impression: Abdominal pain, Hyperglycemia Condition: Good Instructions: ED Abdominal Pain Unkn Cause, ED Hyperglycemia Diabetic Follow-Up: Deana Lynne PA-C [Primary Care Provider] - (Call to arrange for next available appointment) Prescriptions: Glipizide [Glipizide Xl] 2.5 mg PO QDBREAKFAST #14 tab.er.24 Ondansetron Odt [Zofran] 4 mg TL Q6H PRN #10 tablet PRN Reason: Nausea / Vomiting Oxycodone HCl/Acetaminophen [Percocet 5-325 mg Tablet] 1 - 2 each PO Q6H PRN #10 tablet PRN Reason: pain Forms: Activity restrictions Discharge Date/Time: 03/31/19 06:08
[2019-03-31] MEDS ORDERED: MORPHINE 2 MG/ML CARPUJECT IVP STA ×2 (02:14→05:23)
[2019-03-31] MEDS ORDERED: ONDANSETRON 4 MG/2 ML VIAL IVP STA ×2 (02:14→03:22)
[2019-03-31 02:30] LABS: BASOPHILS # (AUTO) 0.1 10^3/uL (0.0-0.1); BASOPHILS % (AUTO) 0.6 %; EOSINOPHILS # (AUTO) 0.2 10^3/uL (0.0-0.7); EOSINOPHILS % (AUTO) 1.8 %; HGB - HEMOGLOBIN 14.1 g/dL (12.0-16.0); LYMPHOCYTES # (AUTO) 3.8 10^3/uL (1.5-3.5); LYMPHOCYTES % (AUTO) 37.5 %; MEAN CORPUSCULAR HEMOGLOBIN 30.1 pg (27.0-31.0); MEAN CORPUSCULAR HGB CONC 34.4 g/dL (32.0-36.0); MEAN CORPUSCULAR VOLUME 87.6 fL (81.0-99.0); MEAN PLATELET VOLUME 10.4 fL (7.9-10.8); MONOCYTES # (AUTO) 0.8 10^3/uL (0.0-1.0); MONOCYTES % (AUTO) 8.1 %; NEUTROPHILS # (AUTO) 5.2 10^3/uL (1.5-6.6); NEUTROPHILS % (AUTO) 51.6 %; PLT - PLATELET COUNT 339 10^3/uL (130-450); RED BLOOD COUNT 4.68 10^6/uL (4.20-5.40); RED CELL DISTRIBUTION WIDTH 12.1 % (12.0-15.0); WHITE BLOOD COUNT 10.1 x10^3/uL (4.8-10.8)
[2019-03-31 02:35] LABS: BILIRUBIN,URINE NEGATIVE (NEGATIVE); GLUCOSE, URINE (UA) >=1000 mg/dL (NEGATIVE); KETONES,URINE (UA) NEGATIVE (NEGATIVE); LEUKOCYTE ESTERASE, URINE NEGATIVE (NEGATIVE); NITRITE,URINE NEGATIVE (NEGATIVE); OCCULT BLOOD,URINE TRACE-LYSE (NEGATIVE); PH,URINE 5.5 PH (5.0-7.5); PROTEIN,URINE NEGATIVE (NEGATIVE); UROBILINOGEN,URINE 0.2 (NORMAL) E.U./dL (NORMAL)
[2019-03-31 02:36] LABS: CLARITY,URINE CLEAR (CLEAR); HCG UR QUAL NEGATIVE
[2019-03-31 02:44] LABS: ALBUMIN 3.4 g/dL (3.2-5.5); CALCIUM 9.3 mg/dL (8.5-10.3); CREATININE 0.7 mg/dL (0.4-1.0)
[2019-03-31 02:45] LABS: BILIRUBIN,TOTAL 0.5 mg/dL (0.2-1.0); TOTAL PROTEIN 6.9 g/dL (6.7-8.2)
[2019-03-31] MEDS ORDERED: SODIUM CHLORIDE 0.9% 1,000 ML IV ONE (02:48)
--- NOTE | 2019-03-31 03:09 | CT Report ---
Reason: RLQ pain Procedure Date: 03/31/2019 Accession Number: [id number] / [id number] Procedure: CT - Abdomen/Pelvis WO CPT Code: FULL RESULT: EXAM: CT ABDOMEN AND PELVIS EXAM DATE: 03/31/2019 02:56 AM. CLINICAL HISTORY: RLQ pain. COMPARISONS: None. TECHNIQUE: Routine helical CT imaging was performed through the abdomen and pelvis. IV contrast: None. Enteric contrast: No. Reconstructions: Coronal and sagittal. In accordance with CT protocol optimization, one or more of the following dose reduction techniques were utilized for this exam: automated exposure control, adjustment of mA and/or KV based on patient size, or use of iterative reconstructive technique. FINDINGS: Lung Bases: Unremarkable. Liver: Normal. No masses. Gallbladder/Bile Ducts: Unremarkable. Spleen: Normal. Pancreas: Normal. Adrenal Glands: Normal. Kidneys: Normal. No masses or hydronephrosis. Peritoneal Cavity/Bowel: Normal. No free fluid, free air or adenopathy. No masses or acute inflammatory process. The appendix is well visualized and normal. Pelvic Organs: Normal. The bladder and visualized pelvic organs are within normal limits. Vasculature: No aneurysms or other significant abnormality. Bones: No significant abnormality. Other: None. IMPRESSION: Normal noncontrast abdomen and pelvis CT. No evident etiology for patient's right-sided pain. RADIA
[2019-03-31] MEDS ORDERED: oxyCODONE 5 MG TABLET PO STA (03:54)
[2019-03-31] MEDS ORDERED: SODIUM CHLORIDE 0.9% 1,000 ML IV STA (04:05)
[2019-03-31] MEDS ORDERED: INSULIN REGULAR HUMAN 100 UNIT/1 ML 10 ML MDV IVP STA (04:05)
[2019-03-31] MEDS ORDERED: ONDANSETRON ODT 4 MG Prepack 2 TL STA (05:49)
[2019-03-31 06:02] VITALS: BP 145/86
== END 2019-03-31 06:08 | disposition home or self-care (01) ==
LOC: ED 01:22
DX: R10.31 Right lower quadrant pain (principal); E11.65 Type 2 diabetes mellitus with hyperglycemia; Z79.84 Long term (current) use of oral hypoglycemic drugs; I10 Essential (primary) hypertension; M79.7 Fibromyalgia
CPT/HCPCS: 36415; 74176; 80053; 81003; 81025; 82009; 83690; 85025; 96361; 96374; 96375; 96376; 99284; A9270; J1815; 81001; 87086

== ENCOUNTER 2019-05-28 14:36 | Outpatient (CLI) | payer BC ==
--- NOTE | 2019-05-29 08:57 | Ultrasound Report ---
Reason: UNSPECIFIED OVARIAN CYST, RIGHT SIDE Procedure Date: 05/28/2019 Accession Number: [id number] / [id number] Procedure: US - Pelvic w/Transvaginal CPT Code: FULL RESULT: EXAM: PELVIC ULTRASOUND EXAM DATE: 05/28/2019 03:15 PM. CLINICAL HISTORY: Follow-up right ovarian cystic lesion. Right pelvic pain. COMPARISON: Abdominal pelvic CT 03/31/2019. TECHNIQUE: Realtime transabdominal pelvic scan performed to identify the uterus and adnexa and as an overview of other pelvic structures, followed by transvaginal scan to provide greater detail of the uterus and adnexa, with static image documentation. FINDINGS: Uterus: 9.8 x 5.7 x 7.1 cm, volume 207 cc. Anteverted position. Normal overall size and echotexture. Masses: None. Endometrium: 13 mm. Normal. Cervix: Nabothian cysts noted. Right Ovary: 4.9 x 3.2 x 4.3 cm, volume 35 cc. A complex cyst containing nonvascular echogenic components suggests hemorrhagic cyst and measures 2.7 x 2.4 x 2.6 m. No evidence for torsion. Left Ovary: 3.1 x 2.0 x 1.8 cm, volume 6 cc. Normal echotexture and blood flow. Free Fluid: Trace fluid. Other: None. IMPRESSION: 1. 2.7 cm right ovarian hemorrhagic cyst. No torsion evident. 2. Trace physiologic free fluid. RADIA
== END 2019-05-28 14:37 | disposition home or self-care (01) ==
LOC: DI 14:36
PROVIDERS: ATTEND Physician Assistant Medical
DX: N83.201 Unspecified ovarian cyst, right side (principal)
CPT/HCPCS: 76830; 76856

== ENCOUNTER 2019-06-22 15:11 | Emergency (ER) | payer BC ==
[2019-06-22] MEDS ORDERED: SODIUM CHLORIDE 0.9% 1,000 ML IV ONE (15:29)
[2019-06-22] MEDS ORDERED: IPRATROPIUM/ALBUTEROL 3 ML NEB INH STA (15:31)
--- NOTE | 2019-06-22 15:31 | ED Physician Documentation ---
PD HPI DYSPNEA - Stated complaint Stated Complaint: SOA - Chief complaint Chief Complaint: Resp - History obtained from History obtained from: Patient - History of Present Illness Timing - onset: Other (44-year-old woman with history of asthma and type 2 diabetes which is poorly controlled. She has had a cold for the last week and a half or so, but over the last 2 days has had increased trouble breathing with a nonproductive cough and some "itchy" right-sided chest pressure. She has reported pedal edema (although I do not see any on exam).) Review of Systems Ten Systems: 10 systems reviewed and negative Constitutional: reports: Fatigue. denies: Fever, Chills Nose: denies: Rhinorrhea / runny nose, Congestion Cardiac: denies: Palpitations, Calf pain Respiratory: reports: Dyspnea, Cough GI: denies: Abdominal Pain PD PAST MEDICAL HISTORY - Past Medical History Cardiovascular: Hypertension Respiratory: Asthma Endocrine/Autoimmune: Type 2 diabetes GI: Ulcers GENERAL MANAGER FOOD: Ovarian cysts Psych: Anxiety, Bipolar disorder, Post traumatic stress disorder, Claustrophobia Musculoskeletal: Fibromyalgia - Past Surgical History Past Surgical History: Yes General: Colonoscopy, Other - Present Medications Home Medications: Ambulatory Orders Medication Instructions Recorded Confirmed Oxycodone HCl/Acetaminophen 1 - 2 each PO Q6H PRN #14 tablet 10/08/18 [Percocet 5-325 mg Tablet] Sulfamethoxazole/Trimethoprim 1 each PO BID #14 tablet 10/08/18 [Sulfamethoxazole-Tmp Ds Tablet] glyBURIDE [Diabeta] 2.5 mg PO 0800 #14 tablet 10/08/18 Sulfamethoxazole/Trimethoprim 1 each PO BID #14 tablet 10/29/18 [Sulfamethoxazole-Tmp Ds Tablet] Oxycodone HCl/Acetaminophen 1 - 2 each PO Q6H PRN #10 tablet 11/30/18 [Percocet 5-325 mg Tablet] Glipizide [Glipizide Xl] 2.5 mg PO QDBREAKFAST #14 tab.er.24 03/31/19 Ondansetron Odt [Zofran] 4 mg TL Q6H PRN #10 tablet 03/31/19 Oxycodone HCl/Acetaminophen 1 - 2 each PO Q6H PRN #10 tablet 03/31/19 [Percocet 5-325 mg Tablet] Insulin Glargine [Lantus Solostar] 10 unit SUBQ DAILY #1 pen 06/22/19 - Allergies Allergies/Adverse Reactions: Allergies Allergy/AdvReac Type Severity Reaction Status Date / Time chocolate flavor Allergy Anaphylaxis Verified 06/22/19 15:15 glyburide Allergy Unknown Verified 06/22/19 15:15 Iodinated Contrast Media Allergy Hives Verified 06/22/19 15:15 [Iodinated Contrast Media - IV Dye] latex Allergy Unknown Verified 06/22/19 15:15 penicillinase Allergy nausea, Verified 06/22/19 15:15 dizziness, syncope sulfamethoxazole Allergy Unknown Verified 06/22/19 15:15 [From Bactrim] trimethoprim [From Bactrim] Allergy Unknown Verified 06/22/19 15:15 hydromorphone HCl * AdvReac Unknown Hallucinati Verified 06/22/19 15:15 [From Dilaudid] ons - Social History Does the pt smoke?: No Smoking Status: Never smoker Does the pt drink ETOH?: Yes Does the pt have substance abuse?: No - Immunizations Immunizations are current?: Yes - POLST Patient has POLST: No PD ED PE NORMAL - Vitals Vital signs reviewed: Yes - General General: Alert and oriented X 3, No acute distress - HEENT HEENT: PERRL, EOMI - Neck Neck: Supple, no meningeal sign, No bony TTP - Cardiac Cardiac: RRR, No murmur - Respiratory Respiratory: No respiratory distress, Other (Mild expiratory wheezing with good air motion) - Abdomen Abdomen: Soft, Non tender - Back Back: No CVA TTP, No spinal TTP - Derm Derm: Normal color, Warm and dry - Extremities Extremities: No edema, No calf tenderness / cord - Neuro Neuro: Alert and oriented X 3, Normal speech Results - Vitals Vitals: Vital Signs - 24 hr 06/22/19 06/22/19 06/22/19 15:15 15:30 15:31 Temperature 36.6 C Heart Rate 100 103 H 98 Respiratory 16 20 Rate Blood Pressure 148/108 H 160/110 H 160/110 H O2 Saturation 96 98 06/22/19 06/22/19 06/22/19 16:06 16:33 17:16 Temperature 36.6 C Heart Rate 93 102 H 92 Respiratory 16 16 16 Rate Blood Pressure 175/92 H 159/98 H O2 Saturation 96 99 06/22/19 17:35 Temperature Heart Rate 98 Respiratory 16 Rate Blood Pressure 185/99 H O2 Saturation 95 Oxygen O2 Source Room air - Labs Labs: Laboratory Tests 06/22/19 06/22/19 06/22/19 15:31 15:45 15:45 WBC 9.1 RBC 4.75 Hgb 14.3 Hct 41.6 MCV 87.6 MCH 30.1 MCHC 34.4 RDW 11.9 L Plt Count 315 MPV 10.2 Neut # (Auto) 5.3 Lymph # (Auto) 3.0 [place] # (Auto) 0.6 Eos # (Auto) 0.1 Baso # (Auto) 0.1 Absolute Nucleated RBC 0.00 Nucleated RBC % 0.0 D-Dimer VBG pH 7.404 VBG pCO2 39.1 L VBG pO2 28.9 VBG HCO3 23.9 VBG Total CO2 25.1 VBG O2 Saturation 57.8 L VBG Base Excess -0.6 Sodium Potassium Chloride Carbon Dioxide Anion Gap BUN Creatinine Estimated GFR (MDRD) Glucose POC Whole Bld Glucose 319 H Glycated Hemoglobin Estim Average Glucose Calcium Total Bilirubin AST ALT Alkaline Phosphatase Troponin I High Sens B-Natriuretic Peptide Total Protein Albumin Globulin Albumin/Globulin Ratio Lipase Serum Ketones 06/22/19 06/22/19 06/22/19 15:45 15:45 16:22 WBC RBC Hgb Hct MCV MCH MCHC RDW Plt Count MPV Neut # (Auto) Lymph # (Auto) [place] # (Auto) Eos # (Auto) Baso # (Auto) Absolute Nucleated RBC Nucleated RBC % D-Dimer VBG pH VBG pCO2 VBG pO2 VBG HCO3 VBG Total CO2 VBG O2 Saturation VBG Base Excess Sodium 132 L Potassium 4.1 Chloride 98 L Carbon Dioxide 24 Anion Gap 10.0 BUN 12 Creatinine 0.6 Estimated GFR (MDRD) 110 Glucose 326 H POC Whole Bld Glucose Glycated Hemoglobin 13.3 H Estim Average Glucose 335 H Calcium 8.5 Total Bilirubin 0.8 AST 21 ALT 26 Alkaline Phosphatase 106 Troponin I High Sens 4.1 B-Natriuretic Peptide Total Protein 6.3 L Albumin 3.4 Globulin 2.9 Albumin/Globulin Ratio 1.2 Lipase 20 L Serum Ketones NEGATIVE 06/22/19 06/22/19 16:22 17:20 WBC RBC Hgb Hct MCV MCH MCHC RDW Plt Count MPV Neut # (Auto) Lymph # (Auto) [place] # (Auto) Eos # (Auto) Baso # (Auto) Absolute Nucleated RBC Nucleated RBC % D-Dimer 205.3 VBG pH VBG pCO2 VBG pO2 VBG HCO3 VBG Total CO2 VBG O2 Saturation VBG Base Excess Sodium Potassium Chloride Carbon Dioxide Anion Gap BUN Creatinine Estimated GFR (MDRD) Glucose POC Whole Bld Glucose Glycated Hemoglobin Estim Average Glucose Calcium Total Bilirubin AST ALT Alkaline Phosphatase Troponin I High Sens B-Natriuretic Peptide 8 Total Protein Albumin Globulin Albumin/Globulin Ratio Lipase Serum Ketones PD MEDICAL DECISION MAKING - ED course ED course: 44-year-old woman with asthma and diabetes presents with uncontrolled diabetes and dyspnea likely due to same. There is no evidence of PE, ACS, CHF. Her hemoglobin A1c is suggestive long-term uncontrolled diabetes and she is started on Lantus. 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 Departure - Departure Disposition: Home, Self Care Clinical Impression: DM2 (diabetes mellitus, type 2) Qualifiers: Diabetes mellitus longterm insulin use: without predatory animal exterminator use Diabetes me llitus complication status: with hyperglycemia Qualified Code(s): E11.65 - Type 2 diabetes mellitus with hyperglycemia Dyspnea Qualifiers: Dyspnea type: dyspnea on exertion Qualified Code(s): R06.09 - Other forms of dyspnea Condition: Good Record reviewed to determine appropriate education?: Yes Instructions: Insulin Glargine injection, ED Hyperglycemia Diabetic Prescriptions: Insulin Glargine [Lantus Solostar] 10 unit SUBQ DAILY #1 pen Comments: Start Lantus at 10 units a day. You will likely need to go up, its pretty low dose. But as discussed we want to start low as opposed to making her blood sugar go too low. Return for new worsening symptoms. Follow-up with [facility] within the next few days for recheck. Forms: Activity restrictions
[2019-06-22 15:51] LABS: BASOPHILS # (AUTO) 0.1 10^3/uL (0.0-0.1); BASOPHILS % (AUTO) 0.7 %; EOSINOPHILS # (AUTO) 0.1 10^3/uL (0.0-0.7); EOSINOPHILS % (AUTO) 1.4 %; HGB - HEMOGLOBIN 14.3 g/dL (12.0-16.0); LYMPHOCYTES % (AUTO) 32.5 %; MEAN CORPUSCULAR HEMOGLOBIN 30.1 pg (27.0-31.0); MEAN CORPUSCULAR HGB CONC 34.4 g/dL (32.0-36.0); MEAN CORPUSCULAR VOLUME 87.6 fL (81.0-99.0); MEAN PLATELET VOLUME 10.2 fL (7.9-10.8); MONOCYTES # (AUTO) 0.6 10^3/uL (0.0-1.0); MONOCYTES % (AUTO) 6.2 %; NEUTROPHILS # (AUTO) 5.3 10^3/uL (1.5-6.6); NEUTROPHILS % (AUTO) 58.5 %; PLT - PLATELET COUNT 315 10^3/uL (130-450); RED BLOOD COUNT 4.75 10^6/uL (4.20-5.40); RED CELL DISTRIBUTION WIDTH 11.9 % (12.0-15.0); WHITE BLOOD COUNT 9.1 x10^3/uL (4.8-10.8)
[2019-06-22 15:53] LABS: VBG BASE EXCESS -0.6 mmol/L (-2 - +2); VBG PCO2 39.1 mmHg (41-51); VBG PH 7.404 (7.31-7.41); VBG PO2 28.9 mmHg (25-47); VBG TOTAL CO2 25.1 mmol/L (24-29)
[2019-06-22 16:09] LABS: HB2 TOTAL 15.1 g/dL; HEMOGLOBIN A1C 1.84 g/dL; HEMOGLOBIN A1C % 13.3 % (4.6-6.2)
--- NOTE | 2019-06-22 16:36 | XRAY Report ---
Reason: dyspnea Procedure Date: 06/22/2019 Accession Number: [id number] / [id number] Procedure: XR - Chest 2 View X-Ray CPT Code: 18997 FULL RESULT: EXAM: CHEST RADIOGRAPHY EXAM DATE: 06/22/2019 04:00 PM. CLINICAL HISTORY: Dyspnea. COMPARISON: CHEST 1 VIEW 10/29/2018 11:21 AM. TECHNIQUE: 2 views. FINDINGS: Lungs/Pleura: No focal opacities evident. No pleural effusion. No pneumothorax. Normal volumes. Mediastinum: Heart and mediastinal contours are unremarkable. Other: None. IMPRESSION: Normal 2-view chest radiography. RADIA
[2019-06-22 16:41] LABS: ALBUMIN 3.4 g/dL (3.2-5.5); ALBUMIN/GLOBULIN RATIO 1.2 (1.0-2.2); ALKALINE PHOSPHATASE 106 IU/L (42-121); ALT ALANINE AMINOTRANSFERASE 26 IU/L (10-60); AST ASPARTATE AMINOTRANSFERASE 21 IU/L (10-42); BILIRUBIN,TOTAL 0.8 mg/dL (0.2-1.0); BUN - BLOOD UREA NITROGEN 12 mg/dL (6-20); CALCIUM 8.5 mg/dL (8.5-10.3); CARBON DIOXIDE - CO2 24 mmol/L (21-32); CHLORIDE 98 mmol/L (101-111); CREATININE 0.6 mg/dL (0.4-1.0); GFR - MDRD 110 (>89); GLUCOSE 326 mg/dL (70-100); LIPASE 20 U/L (22-51); SODIUM 132 mmol/L (135-145); TOTAL PROTEIN 6.3 g/dL (6.7-8.2)
[2019-06-22 16:52] LABS: KETONES, SERUM (ACETEST) NEGATIVE (NEGATIVE)
[2019-06-22] MEDS ORDERED: IOVERSOL 320 100 ML VIAL IVP ONE (17:09)
[2019-06-22 17:59] VITALS: BP 173/99
== END 2019-06-22 18:03 | disposition home or self-care (01) ==
LOC: ED 15:11
DX: E11.65 Type 2 diabetes mellitus with hyperglycemia (principal); R06.09 Other forms of dyspnea; Z79.84 Long term (current) use of oral hypoglycemic drugs; J45.909 Unspecified asthma, uncomplicated; I10 Essential (primary) hypertension
CPT/HCPCS: 36415; 71046; 80053; 82009; 82803; 83036; 83690; 83880; 84484; 85025; 85379; 94640; 96360; 99283

== ENCOUNTER 2020-11-24 08:00 | Outpatient (CLI) | payer BC ==
[2020-11-24 18:15] LABS: BASOPHILS # (AUTO) 0.1 10^3/uL (0.0-0.1); BASOPHILS % (AUTO) 0.7 %; EOSINOPHILS # (AUTO) 0.3 10^3/uL (0.0-0.7); EOSINOPHILS % (AUTO) 3.1 %; HCT - HEMATOCRIT 36.9 % (37.0-47.0); HGB - HEMOGLOBIN 12.4 g/dL (12.0-16.0); LYMPHOCYTES # (AUTO) 2.7 10^3/uL (1.5-3.5); LYMPHOCYTES % (AUTO) 31.5 %; MEAN CORPUSCULAR HEMOGLOBIN 29.7 pg (27.0-31.0); MEAN CORPUSCULAR HGB CONC 33.6 g/dL (32.0-36.0); MEAN CORPUSCULAR VOLUME 88.5 fL (81.0-99.0); MEAN PLATELET VOLUME 11.2 fL (7.9-10.8); MONOCYTES # (AUTO) 0.6 10^3/uL (0.0-1.0); MONOCYTES % (AUTO) 6.5 %; NEUTROPHILS # (AUTO) 4.9 10^3/uL (1.5-6.6); NEUTROPHILS % (AUTO) 57.8 %; PLT - PLATELET COUNT 329 10^3/uL (130-450); RED BLOOD COUNT 4.17 10^6/uL (4.20-5.40); RED CELL DISTRIBUTION WIDTH 11.6 % (12.0-15.0); WHITE BLOOD COUNT 8.5 x10^3/uL (4.8-10.8)
[2020-11-24 18:45] LABS: THYROID STIMULATING HORMONE 1.33 uIU/mL (0.34-5.60)
[2020-11-24 18:54] LABS: ALBUMIN 3.7 g/dL (3.2-5.5); ALBUMIN/GLOBULIN RATIO 1.1 (1.0-2.2); ALKALINE PHOSPHATASE 127 IU/L (42-121); ALT ALANINE AMINOTRANSFERASE 27 IU/L (10-60); AST ASPARTATE AMINOTRANSFERASE 23 IU/L (10-42); BILIRUBIN,TOTAL 0.7 mg/dL (0.2-1.0); BUN - BLOOD UREA NITROGEN 24 mg/dL (6-20); CALCIUM 9.4 mg/dL (8.5-10.3); CARBON DIOXIDE - CO2 20 mmol/L (21-32); CHLORIDE 99 mmol/L (101-111); CHOL/HDL RATIO 6.3 (<4.4); CHOLESTEROL 253 mg/dL; CREATININE 0.9 mg/dL (0.4-1.0); GFR - MDRD 68 (>89); HDL CHOLESTEROL 40 mg/dL; POTASSIUM 5.1 mmol/L (3.5-5.0); SODIUM 128 mmol/L (135-145); TRIGLYCERIDES 406 mg/dL
[2020-11-24 19:00] LABS: GLUCOSE 527 mg/dL (70-100)
[2020-11-24 19:25] LABS: LDL CHOLESTEROL,DIRECT 146 mg/dL; LDLD/HDL RATIO 3.7 (<4.4)
[2020-11-24 19:27] LABS: CREATININE,URINE 32.2 mg/dL; MICROALBUM/CREATININE RATIO,UR 537.3 ug/mg (<30.0); MICROALBUMIN,URINE 17.3 mg/dL (0-300.0)
[2020-11-24 19:55] LABS: ESTIMATED AVERAGE GLUCOSE 321 mg/dL (70-100); HEMOGLOBIN A1c% 12.8 % (4.27-6.07)
== END 2020-11-24 23:59 | disposition home or self-care (01) ==
LOC: LAB.WCP 08:00
PROVIDERS: ATTEND Physician Assistant Medical
DX: E11.9 Type 2 diabetes mellitus without complications (principal); E78.5 Hyperlipidemia, unspecified; I10 Essential (primary) hypertension; R42 Dizziness and giddiness
CPT/HCPCS: 36415; 80053; 80061; 82043; 82570; 83036; 83721; 84443; 85025

== ENCOUNTER 2021-10-28 11:44 | Outpatient (CLI) | payer BC ==
[2021-10-28 19:04] LABS: BASOPHILS # (AUTO) 0.1 10^3/uL (0.0-0.1); BASOPHILS % (AUTO) 0.6 %; EOSINOPHILS # (AUTO) 0.2 10^3/uL (0.0-0.7); EOSINOPHILS % (AUTO) 1.9 %; HCT - HEMATOCRIT 37.4 % (37.0-47.0); HGB - HEMOGLOBIN 12.7 g/dL (12.0-16.0); LYMPHOCYTES # (AUTO) 2.4 10^3/uL (1.5-3.5); LYMPHOCYTES % (AUTO) 26.2 %; MEAN CORPUSCULAR HEMOGLOBIN 29.3 pg (27.0-31.0); MEAN CORPUSCULAR VOLUME 86.2 fL (81.0-99.0); MEAN PLATELET VOLUME 11.6 fL (7.9-10.8); MONOCYTES # (AUTO) 0.7 10^3/uL (0.0-1.0); MONOCYTES % (AUTO) 7.6 %; NEUTROPHILS # (AUTO) 5.8 10^3/uL (1.5-6.6); NEUTROPHILS % (AUTO) 63.1 %; PLT - PLATELET COUNT 369 10^3/uL (130-450); RED BLOOD COUNT 4.34 10^6/uL (4.20-5.40); RED CELL DISTRIBUTION WIDTH 12.4 % (12.0-15.0); WHITE BLOOD COUNT 9.2 x10^3/uL (4.8-10.8)
[2021-10-28 19:27] LABS: ALBUMIN 3.5 g/dL (3.2-5.5); ALKALINE PHOSPHATASE 125 IU/L (42-121); ALT ALANINE AMINOTRANSFERASE 22 IU/L (10-60); AST ASPARTATE AMINOTRANSFERASE 15 IU/L (10-42); BILIRUBIN,TOTAL 0.8 mg/dL (0.2-1.0); BUN - BLOOD UREA NITROGEN 29 mg/dL (6-20); CALCIUM 9.3 mg/dL (8.5-10.3); CARBON DIOXIDE - CO2 25 mmol/L (21-32); CHLORIDE 96 mmol/L (101-111); CHOL/HDL RATIO 6.7 (<4.4); CHOLESTEROL 283 mg/dL; CREATININE 0.9 mg/dL (0.4-1.0); GFR - MDRD 68 (>89); HDL CHOLESTEROL 42 mg/dL; POTASSIUM 4.5 mmol/L (3.5-5.0); SODIUM 129 mmol/L (135-145); TOTAL PROTEIN 6.9 g/dL (6.7-8.2); TRIGLYCERIDES 460 mg/dL
[2021-10-28 19:30] LABS: THYROID STIMULATING HORMONE 1.56 uIU/mL (0.34-5.60)
[2021-10-28 19:32] LABS: GLUCOSE 534 mg/dL (70-100)
[2021-10-28 19:34] LABS: CREATININE,URINE 35.9 mg/dL; MICROALBUM/CREATININE RATIO,UR 1576.6 ug/mg (<30.0); MICROALBUMIN,URINE 56.6 mg/dL (0-300.0)
[2021-10-28 20:33] LABS: LDL CHOLESTEROL,DIRECT 147 mg/dL; LDLD/HDL RATIO 3.5 (<4.4)
[2021-10-28 21:11] LABS: ESTIMATED AVERAGE GLUCOSE 335 mg/dL (70-100); HEMOGLOBIN A1c% 13.3 % (4.27-6.07)
== END 2021-10-28 11:45 | disposition home or self-care (01) ==
LOC: LAB.N 11:44
PROVIDERS: ATTEND Physician Assistant Medical
DX: U07.1 COVID-19 (principal); E11.9 Type 2 diabetes mellitus without complications; E86.0 Dehydration
CPT/HCPCS: 36415; 80053; 80061; 82043; 82570; 83036; 83721; 84443; 85025

== ENCOUNTER 2021-11-11 11:01 | Outpatient (CLI) | payer BC ==
[2021-11-11 18:06] LABS: BASOPHILS # (AUTO) 0.1 10^3/uL (0.0-0.1); BASOPHILS % (AUTO) 0.8 %; EOSINOPHILS # (AUTO) 0.4 10^3/uL (0.0-0.7); EOSINOPHILS % (AUTO) 4.1 %; HCT - HEMATOCRIT 37.3 % (37.0-47.0); HGB - HEMOGLOBIN 12.2 g/dL (12.0-16.0); LYMPHOCYTES % (AUTO) 40.6 %; MEAN CORPUSCULAR HEMOGLOBIN 29.5 pg (27.0-31.0); MEAN CORPUSCULAR HGB CONC 32.7 g/dL (32.0-36.0); MEAN CORPUSCULAR VOLUME 90.1 fL (81.0-99.0); MEAN PLATELET VOLUME 11.2 fL (7.9-10.8); MONOCYTES # (AUTO) 0.7 10^3/uL (0.0-1.0); MONOCYTES % (AUTO) 6.9 %; NEUTROPHILS # (AUTO) 4.6 10^3/uL (1.5-6.6); NEUTROPHILS % (AUTO) 46.6 %; PLT - PLATELET COUNT 467 10^3/uL (130-450); RED BLOOD COUNT 4.14 10^6/uL (4.20-5.40); RED CELL DISTRIBUTION WIDTH 12.8 % (12.0-15.0); WHITE BLOOD COUNT 9.8 x10^3/uL (4.8-10.8)
[2021-11-11 18:13] LABS: BILIRUBIN,URINE NEGATIVE (NEGATIVE); CLARITY,URINE HAZY (CLEAR); GLUCOSE, URINE (UA) >=1000 mg/dL (NEGATIVE); KETONES,URINE (UA) NEGATIVE (NEGATIVE); LEUKOCYTE ESTERASE, URINE NEGATIVE (NEGATIVE); NITRITE,URINE NEGATIVE (NEGATIVE); OCCULT BLOOD,URINE TRACE-INTA (NEGATIVE); PH,URINE 5.5 PH (5.0-7.5); PROTEIN,URINE 100 mg/dL (NEGATIVE); UROBILINOGEN,URINE 0.2 (NORMAL) E.U./dL (NORMAL)
[2021-11-11 18:14] LABS: ALBUMIN 3.3 g/dL (3.2-5.5); BILIRUBIN,TOTAL 0.4 mg/dL (0.2-1.0); CALCIUM 9.4 mg/dL (8.5-10.3); CREATININE 0.8 mg/dL (0.4-1.0); POTASSIUM 4.7 mmol/L (3.5-5.0); TOTAL PROTEIN 6.6 g/dL (6.7-8.2)
[2021-11-11 18:27] LABS: % IRON SATURATION 16 % (20-50); IRON 58 ug/dL (28-170); TOTAL IRON BINDING CAPACITY 374 ug/dL (250-450); TRANSFERRIN 267 mg/dL (192-382)
[2021-11-11 18:41] LABS: BACTERIA,URINE Rare /HPF (None Seen); RBC,URINE 0-5 /HPF (0-5); SQUAMOUS EPITHELIAL CELL,UR MOD Squamous (<= Few); WBC,URINE 0-3 /HPF (0-5); YEAST,URINE PRESENT
== END 2021-11-11 11:02 | disposition home or self-care (01) ==
LOC: LAB.N 11:01
PROVIDERS: ATTEND Nurse Practitioner
DX: E86.0 Dehydration (principal); R10.9 Unspecified abdominal pain; D64.9 Anemia, unspecified
CPT/HCPCS: 36415; 80053; 81001; 82728; 83540; 84466; 85025; 87086

== ENCOUNTER 2021-11-17 10:04 | Outpatient (CLI) | payer BC ==
[2021-11-17] MEDS ORDERED: GADOBUTROL 10 MMOL/10 ML VIAL ONE (10:44)
--- NOTE | 2021-11-17 16:23 | MRI Report ---
PROCEDURE: Brain W/WO INDICATIONS: HALLUCINATIONS CONTRAST: IV CONTRAST: Gadavist ml: 9.6 TECHNIQUE: Noncontrast axial T1 spin echo, axial T2 fast spin echo, sagittal and axial FLAIR, coronal T2 fast sp in echo, axial gradient echo, axial diffusion and ADC through the brain. After the administration of contrast, axial and coronal T1 spin echo with fat saturation through the brain. COMPARISON: None. FINDINGS: Image quality: Excellent. CSF spaces: Basal cisterns are patent. No extra-axial fluid collections. Ventricles are normal in size and shape. Brain: No midline shift. No intracranial bleeds or masses. There are a few, small, punctate foci of increased T2 signal in the left paraventricular white matter and the ephraim. The brainstem appears nor mal. Diffusion-weighted images demonstrate no acute ischemic insults. No chronic ischemic insults. Normal intravascular flow voids are present. Dural sinuses demonstrate normal postcontrast enhanceme nt. Skull and face: Calvarial marrow is normal in signal. Orbits appear normal. Sinuses: Sinuses and mastoids appear clear. IMPRESSION: 1. No acute intracranial disease process. 2. No abnormal intracranial mass or mass effect. 3. No suspicious postcontrast enhancement. 4. Small foci of increased T2 signal in the left periventricular white matter in the ephraim. Finding ma y represent early manifestation of chronic microvascular ischemic change, however finding is nonspeci fic and other etiologies including demyelinating process such as multiple sclerosis could produce a s imilar appearance. Recommend correlation with clinical data. Reviewed by: Fransisca Doran MD, PhD on 11/17/2021 4:22 PM PST Approved by: Fransisca Doran MD, PhD on 11/17/2021 4:22 PM PST Station ID: [id number]
[2021-11-17] MEDS ORDERED: GADOBUTROL 10 MMOL/10 ML VIAL IVP ONE (16:49)
== END 2021-11-17 10:05 | disposition home or self-care (01) ==
LOC: DI 10:04
PROVIDERS: ATTEND Physician Assistant Medical
DX: R44.3 Hallucinations, unspecified (principal); R90.89 Other abnormal findings on diagnostic imaging of central nervous system
CPT/HCPCS: 70553; A9585

== ENCOUNTER 2021-12-28 08:00 | Outpatient (CLI) | payer BC | END 2021-12-28 23:59 | disposition home or self-care (01) | LOC: LAB.R 08:00 | PROVIDERS: ATTEND Physician Assistant Medical | DX: U07.1 COVID-19 (principal) ==

== ENCOUNTER 2022-01-18 16:30 | Outpatient (CLI) | payer BC | END 2022-01-18 23:59 | disposition home or self-care (01) | LOC: LAB.WCP 16:30 | PROVIDERS: ATTEND Physician Assistant Medical | DX: U07.1 COVID-19 (principal) ==

== ENCOUNTER 2022-03-31 13:18 | Outpatient (CLI) | payer BC ==
[2022-03-31 17:40] LABS: BASOPHILS # (AUTO) 0.1 10^3/uL (0.0-0.1); BASOPHILS % (AUTO) 0.8 %; EOSINOPHILS # (AUTO) 0.4 10^3/uL (0.0-0.7); HCT - HEMATOCRIT 36.5 % (37.0-47.0); HGB - HEMOGLOBIN 12.1 g/dL (12.0-16.0); LYMPHOCYTES # (AUTO) 3.1 10^3/uL (1.5-3.5); LYMPHOCYTES % (AUTO) 29.8 %; MEAN CORPUSCULAR HEMOGLOBIN 28.7 pg (27.0-31.0); MEAN CORPUSCULAR HGB CONC 33.2 g/dL (32.0-36.0); MEAN CORPUSCULAR VOLUME 86.7 fL (81.0-99.0); MEAN PLATELET VOLUME 10.9 fL (7.9-10.8); MONOCYTES # (AUTO) 0.6 10^3/uL (0.0-1.0); MONOCYTES % (AUTO) 5.5 %; NEUTROPHILS # (AUTO) 6.1 10^3/uL (1.5-6.6); NEUTROPHILS % (AUTO) 59.5 %; PLT - PLATELET COUNT 419 10^3/uL (130-450); RED BLOOD COUNT 4.21 10^6/uL (4.20-5.40); RED CELL DISTRIBUTION WIDTH 12.5 % (12.0-15.0); WHITE BLOOD COUNT 10.3 x10^3/uL (4.8-10.8)
[2022-03-31 17:51] LABS: ALBUMIN 3.2 g/dL (3.2-5.5); BILIRUBIN,TOTAL 0.5 mg/dL (0.2-1.0); CALCIUM 9.1 mg/dL (8.5-10.3); CREATININE 0.9 mg/dL (0.4-1.0); POTASSIUM 4.7 mmol/L (3.5-5.0); TOTAL PROTEIN 6.5 g/dL (6.7-8.2)
[2022-03-31 20:32] LABS: ESTIMATED AVERAGE GLUCOSE 169 mg/dL (70-100); HEMOGLOBIN A1c% 7.5 % (4.27-6.07)
== END 2022-03-31 13:19 | disposition home or self-care (01) ==
LOC: LAB.N 13:18
PROVIDERS: ATTEND Physician Assistant Medical
DX: E11.65 Type 2 diabetes mellitus with hyperglycemia (principal); D64.9 Anemia, unspecified
CPT/HCPCS: 36415; 80053; 83036; 85025

== ENCOUNTER 2022-04-03 08:00 | Outpatient (CLI) | payer BC ==
[2022-04-03 12:31] LABS: BILIRUBIN,URINE NEGATIVE (NEGATIVE); CLARITY,URINE CLEAR (CLEAR); GLUCOSE, URINE (UA) NEGATIVE (NEGATIVE); KETONES,URINE (UA) NEGATIVE (NEGATIVE); LEUKOCYTE ESTERASE, URINE NEGATIVE (NEGATIVE); NITRITE,URINE NEGATIVE (NEGATIVE); OCCULT BLOOD,URINE SMALL (NEGATIVE); PH,URINE 5.5 PH (5.0-7.5); PROTEIN,URINE 100 mg/dL (NEGATIVE); UROBILINOGEN,URINE 0.2 (NORMAL) E.U./dL (NORMAL)
[2022-04-03 12:51] LABS: BACTERIA,URINE Few /HPF (None Seen); RBC,URINE 0-5 /HPF (0-5); SQUAMOUS EPITHELIAL CELL,UR FEW Squamous (<= Few); WBC,URINE 0-3 /HPF (0-5)
== END 2022-04-03 23:59 | disposition home or self-care (01) ==
LOC: LAB.WCP 08:00
PROVIDERS: ATTEND Physician Assistant Medical
DX: R31.9 Hematuria, unspecified (principal)
CPT/HCPCS: 81001; 87086

== ENCOUNTER 2022-04-05 09:45 | Outpatient (CLI) | payer BC ==
--- NOTE | 2022-04-05 11:04 | CT Report ---
PROCEDURE: Abdomen/Pelvis WO INDICATIONS: RIGHT LOWER QUAD ABD PAIN TECHNIQUE: Noncontrast 5 mm thick sections acquired from the diaphragms to the symphysis. 5 mm coronal and sagi ttal reformats were then performed. For radiation dose reduction, the following was used: automated exposure control, adjustment of mA and/or kV according to patient size. COMPARISON: None. FINDINGS: Image quality: Excellent. ABDOMEN: Lung bases: Lung bases are clear. Heart size is normal. Solid organs: Liver is enlarged measuring 20.8 cm with steatosis. The spleen is normal in size. Ga llbladder Pancreas is normal in contours. No adrenal nodules. Kidneys are normal in size, with out hydronephrosis or nephrolithiasis. Peritoneum and bowel: Unenhanced bowel loops demonstrate normal wall thickness and caliber. No free fluid or air. Appendix is normal in size. No inflammatory change. Appendicolith is present. Nodes and vessels: No retroperitoneal or mesenteric adenopathy by size criteria. Aorta and inferior vena cava are normal in caliber. Miscellaneous: Trace fat containing ventral hernia. PELVIS: Genitourinary: Bladder wall thickness is normal. Miscellaneous: No inguinal hernias or adenopathy. Bones: No suspicious bony lesions. No vertebral body compression fractures. IMPRESSION: No acute intra-abdominal or pelvic process. Appendix is normal in size without inflammatory change. Appendicolith is noted. Reviewed by: Chiquita Akers MD on 04/05/2022 11:02 AM PDT Approved by: Chiquita Akers MD on 04/05/2022 11:02 AM PDT Station ID: [id number]
== END 2022-04-05 09:46 | disposition home or self-care (01) ==
LOC: DI 09:45
PROVIDERS: ATTEND Physician Assistant Medical
DX: R10.31 Right lower quadrant pain (principal); K38.1 Appendicular concretions

== ENCOUNTER 2023-01-31 12:37 | Outpatient (CLI) | payer BC, OTHER ==
[2023-01-31 17:52] LABS: BASOPHILS # (AUTO) 0.1 10^3/uL (0.0-0.1); BASOPHILS % (AUTO) 0.8 %; EOSINOPHILS # (AUTO) 0.6 10^3/uL (0.0-0.7); EOSINOPHILS % (AUTO) 3.9 %; HCT - HEMATOCRIT 33.1 % (37.0-47.0); HGB - HEMOGLOBIN 10.9 g/dL (12.0-16.0); LYMPHOCYTES # (AUTO) 2.8 10^3/uL (1.5-3.5); LYMPHOCYTES % (AUTO) 19.5 %; MEAN CORPUSCULAR HEMOGLOBIN 28.8 pg (27.0-31.0); MEAN CORPUSCULAR HGB CONC 32.9 g/dL (32.0-36.0); MEAN CORPUSCULAR VOLUME 87.6 fL (81.0-99.0); MONOCYTES # (AUTO) 0.9 10^3/uL (0.0-1.0); NEUTROPHILS # (AUTO) 10.1 10^3/uL (1.5-6.6); NEUTROPHILS % (AUTO) 69.1 %; RED BLOOD COUNT 3.78 10^6/uL (4.20-5.40); RED CELL DISTRIBUTION WIDTH 12.7 % (12.0-15.0); WHITE BLOOD COUNT 14.6 x10^3/uL (4.8-10.8)
[2023-01-31 17:59] LABS: SLIDE REVIEW? Indicated
[2023-01-31 18:18] LABS: ALBUMIN 2.7 g/dL (3.2-5.5); ALBUMIN/GLOBULIN RATIO 0.8 (1.0-2.2); ALKALINE PHOSPHATASE 84 IU/L (42-121); ALT ALANINE AMINOTRANSFERASE 10 IU/L (10-60); AST ASPARTATE AMINOTRANSFERASE 17 IU/L (10-42); BILIRUBIN,TOTAL 0.5 mg/dL (0.2-1.0); BUN - BLOOD UREA NITROGEN 30 mg/dL (6-20); CALCIUM 9.1 mg/dL (8.5-10.3); CARBON DIOXIDE - CO2 21 mmol/L (21-32); CHLORIDE 111 mmol/L (101-111); CHOL/HDL RATIO 5.7 (<4.4); CHOLESTEROL 294 mg/dL; GFR - MDRD 60 (>89); GLUCOSE 187 mg/dL (70-100); HDL CHOLESTEROL 52 mg/dL; LDL CHOLESTEROL,CALCULATED 189 mg/dL; LDL/HDL RATIO 3.6 (<4.4); POTASSIUM 4.8 mmol/L (3.5-5.0); SODIUM 136 mmol/L (135-145); TOTAL PROTEIN 6.2 g/dL (6.7-8.2); TRIGLYCERIDES 263 mg/dL; VLDL CHOLESTEROL 53 mg/dL
[2023-01-31 18:20] LABS: THYROID STIMULATING HORMONE 2.44 uIU/mL (0.34-5.60)
[2023-01-31 18:37] LABS: CREATININE,URINE 128.6 mg/dL; MICROALBUM/CREATININE RATIO,UR 5179.6 ug/mg (<30.0); MICROALBUMIN,URINE 666.1 mg/dL (0-300.0)
[2023-01-31 18:47] LABS: CRP - C-REACTIVE PROTEIN < 1.0 mg/dL (0-1.0)
[2023-01-31 18:56] LABS: PLATELET ESTIMATE, MANUAL NORMAL (130-450,000) (NORMAL); PLATELET MORPHOLOGY PLATELET CLUMPING (NORMAL)
[2023-01-31 20:44] LABS: ESTIMATED AVERAGE GLUCOSE 183 mg/dL (70-100)
== END 2023-01-31 12:38 | disposition home or self-care (01) ==
LOC: LAB.N 12:37
PROVIDERS: ATTEND Physician Assistant Medical
DX: M79.10 Myalgia, unspecified site (principal); E11.65 Type 2 diabetes mellitus with hyperglycemia
CPT/HCPCS: 36415; 80053; 80061; 82043; 82570; 83036; 83721; 84443; 85025; 85651; 86140

== ENCOUNTER 2023-04-06 08:19 | Outpatient (CLI) | payer BC, OTHER ==
[2023-04-06 08:44] LABS: CREATININE 1.5 mg/dL (0.6-1.3)
[2023-04-06] MEDS ORDERED: iohexoL-300 100 ML VIAL ONE (08:44)
[2023-04-06] MEDS ORDERED: DIATR MEGLU/DIATRIZOATE SODIUM 120 ML BOTTLE ONE (08:44)
--- NOTE | 2023-04-06 12:03 | CT Report ---
PROCEDURE: ABDOMEN/PELVIS W INDICATIONS: RIGHT LOWER QUAD ABD PAIN CONTRAST: 100ml omni 300 TECHNIQUE: After the administration of contrast, 5 mm thick sections acquired from the diaphragms to the symphys is. 5 mm thick coronal and sagittal reformats were acquired. For radiation dose reduction, the foll owing was used: automated exposure control, adjustment of mA and/or kV according to patient size. COMPARISON: 04/05/2022 FINDINGS: Image quality: Excellent. Lung bases and heart: Unremarkable. Liver: The liver has no mass or intrahepatic biliary ductal dilatation. Gallbladder and biliary tree: No wall thickening or pericholecystic fluid. Spleen: No splenomegaly. Pancreas: No pancreatic ductal dilation. Adrenals: No adrenal nodule. Kidneys and ureters: No hydronephrosis. No renal cystic lesion which requires follow up. No solid mas s. Bowel and peritoneum: No bowel distension. No pathologic free fluid. The appendix has several high de nsities likely appendicolith; no wall thickening, dilatation, or other evidence of acute appendicitis Lymph nodes: No central or retroperitoneal adenopathy. Vessels: No infrarenal aortic aneurysm. PELVIS Reproductive organs: Unremarkable. Bladder: No abnormal wall thickening, accounting for underdistension. Pelvic lymph nodes: No pelvic adenopathy by size criteria. Bones: No aggressive osseous abnormality. Other: No significant ventral or inguinal hernia. IMPRESSION: 1. No acute abnormality of the abdomen or pelvis to explain right lower quadrant pain. 2. No other significant abnormality. Reviewed by: Jsoe Young on 04/06/2023 12:02 PM PDT Approved by: Jose Young on 04/06/2023 12:02 PM PDT Station ID: [id number]
[2023-04-06] MEDS ORDERED: iohexoL-300 100 ML VIAL IVP ONE (19:39)
[2023-04-06] MEDS ORDERED: DIATRIZOATE MEGLU/DIATRIZO SOD 30 ML BOTTLE PO ONE (19:40)
== END 2023-04-06 08:20 | disposition home or self-care (01) ==
LOC: LAB 08:19
PROVIDERS: ATTEND Physician Assistant Medical
DX: R10.31 Right lower quadrant pain (principal)
CPT/HCPCS: 36415; 74177; 82565; Q9963; Q9967

== ENCOUNTER 2023-06-17 09:49 | Outpatient (CLI) | payer BC, OTHER ==
--- NOTE | 2023-06-17 14:36 | Ultrasound Report ---
PROCEDURE: Abdomen Limited INDICATIONS: NAUSEA TECHNIQUE: Real-time focused scanning was performed of the abdomen, with image documentation. COMPARISONS: Correlation made to CT abdomen and pelvis 04/06/2023 FINDINGS: Liver: The liver is mildly enlarged measuring 19.6 cm in length. The parenchyma is mildly hyperechoi c. No discrete mass. Gallbladder: The gallbladder demonstrates a normal wall thickness of 3 mm. There is dependent hyperec hoic, nonshadowing material, potentially granular stones or sludge. No pericholecystic fluid or Kodak y's sign. The cystic duct appears patent. Biliary ducts: Intrahepatic bile ducts are non-dilated. Common hepatic duct is 9 mm. Extrahepatic b ile duct caliber measures 5 mm. Normal is 6-7 mm or less in diameter, or 10 mm or less post-cholecys tectomy. Pancreas: Visualized portions of the pancreas are sonographically normal. Right kidney: Normal in size and echotexture. Right kidney measures 11.6 cm long. No hydronephrosis or nephrolithiasis. No solid masses. No complex renal cystic lesions which require follow-up. Aorta: Visualized aorta is normal in caliber at less than 3 cm. IVC: Intrahepatic inferior vena cava is patent. Miscellaneous: No free abdominal fluid. IMPRESSION: 1. Cholelithiasis versus gallbladder sludge without sonographic evidence of acute cholecystitis. 2. Mild hepatomegaly and hepatic steatosis consistent with CT appearance. Reviewed by: Kate Martinez MD on 06/17/2023 2:35 PM PDT Approved by: Kate Martinez MD on 06/17/2023 2:35 PM PDT Station ID: [id number]
== END 2023-06-17 09:50 | disposition home or self-care (01) ==
LOC: DI 09:49
PROVIDERS: ATTEND Physician Assistant Medical
DX: K76.0 Fatty (change of) liver, not elsewhere classified (principal); R11.0 Nausea; R10.9 Unspecified abdominal pain

== ENCOUNTER 2023-07-23 08:00 | Outpatient (CLI) | payer OTHER | END 2023-07-23 08:01 | disposition home or self-care (01) | LOC: LAB.WCP 08:00 | PROVIDERS: ATTEND Physician Assistant Medical | DX: M79.672 Pain in left foot (principal) | CPT/HCPCS: 87070; 87077; 87205 ==

== ENCOUNTER 2023-08-15 08:00 | Outpatient (CLI) | payer OTHER | END 2023-08-15 23:58 | disposition home or self-care (01) | LOC: LAB.WCP 08:00 | PROVIDERS: ATTEND Physician Assistant Medical | DX: L08.9 Local infection of the skin and subcutaneous tissue, unspecified (principal) | CPT/HCPCS: 87070; 87077; 87181; 87205 ==

== ENCOUNTER 2023-08-16 13:59 | Outpatient (CLI) | payer OTHER ==
[2023-08-16 14:47] LABS: FERRITIN 479.2 ng/mL (11.0-306.8)
== END 2023-08-16 14:00 | disposition home or self-care (01) ==
LOC: LAB 13:59
PROVIDERS: ATTEND Physician Assistant Medical
DX: D64.9 Anemia, unspecified (principal)
CPT/HCPCS: 36415; 82607; 82728; 82746; 83540; 84466

== ENCOUNTER 2023-08-22 12:55 | Outpatient (CLI) | payer OTHER ==
--- NOTE | 2023-08-22 19:27 | XRAY Report ---
PROCEDURE: Chest 2 View X-Ray INDICATIONS: EVAL FOR CHF TECHNIQUE: 2 views of the chest were obtained. COMPARISON: 06/22/2019 FINDINGS: Surgical changes and devices: None. Lungs and pleura: Left pleural effusion with compressive atelectasis and/or infiltrate Mediastinum: Mediastinal contours appear normal. Heart size is normal. Bones and chest wall: No suspicious bony lesions. Overlying soft tissues appear unremarkable. IMPRESSION: Left pleural effusion with associated atelectasis and or infiltrate. No radiographic evidence of CHF Reviewed by: Yaya Tran MD on 08/22/2023 6:25 PM [place] Approved by: Yaya Tran MD on 08/22/2023 6:25 PM [place] Station ID: [id number]
== END 2023-08-22 12:56 | disposition home or self-care (01) ==
LOC: DI 12:55
PROVIDERS: ATTEND Family Medicine
DX: R06.01 Orthopnea (principal); J90 Pleural effusion, not elsewhere classified

== ENCOUNTER 2023-08-30 11:35 | Outpatient (CLI) | payer OTHER ==
[2023-08-30 11:55] LABS: BASOPHILS # (AUTO) 0.1 10^3/uL (0.0-0.1); BASOPHILS % (AUTO) 0.5 %; EOSINOPHILS # (AUTO) 0.2 10^3/uL (0.0-0.7); EOSINOPHILS % (AUTO) 2.1 %; HCT - HEMATOCRIT 26.2 % (37.0-47.0); HGB - HEMOGLOBIN 8.3 g/dL (12.0-16.0); LYMPHOCYTES # (AUTO) 1.8 10^3/uL (1.5-3.5); LYMPHOCYTES % (AUTO) 16.3 %; MEAN CORPUSCULAR HEMOGLOBIN 29.4 pg (27.0-31.0); MEAN CORPUSCULAR HGB CONC 31.7 g/dL (32.0-36.0); MEAN CORPUSCULAR VOLUME 92.9 fL (81.0-99.0); NEUTROPHILS # (AUTO) 7.8 10^3/uL (1.5-6.6); NEUTROPHILS % (AUTO) 71.3 %; PLT - PLATELET COUNT 318 10^3/uL (130-450); RED BLOOD COUNT 2.82 10^6/uL (4.20-5.40); RED CELL DISTRIBUTION WIDTH 13.2 % (12.0-15.0); WHITE BLOOD COUNT 10.9 x10^3/uL (4.8-10.8)
[2023-08-30 12:13] LABS: ALBUMIN 3.2 g/dL (3.2-5.5); ALBUMIN/GLOBULIN RATIO 1.3 (1.0-2.2); ALKALINE PHOSPHATASE 116 IU/L (42-121); ALT ALANINE AMINOTRANSFERASE 18 IU/L (10-60); AST ASPARTATE AMINOTRANSFERASE 18 IU/L (10-42); BILIRUBIN,TOTAL 0.2 mg/dL (0.2-1.0); BUN - BLOOD UREA NITROGEN 31 mg/dL (6-20); CALCIUM 8.8 mg/dL (8.5-10.3); CARBON DIOXIDE - CO2 25 mmol/L (21-32); CHLORIDE 105 mmol/L (101-111); CREATININE 1.6 mg/dL (0.6-1.3); CRP - C-REACTIVE PROTEIN < 0.5 mg/dL (<0.5); GFR - MDRD 35 (>89); GLUCOSE 158 mg/dL (74-104); POTASSIUM 4.6 mmol/L (3.5-4.5); SODIUM 134 mmol/L (135-145); TOTAL PROTEIN 5.7 g/dL (6.4-8.9)
--- NOTE | 2023-08-30 21:56 | XRAY Report ---
PROCEDURE: Calcaneus LT INDICATIONS: OSTEOMYELITIS TECHNIQUE: Two views of the calcaneus were acquired. COMPARISON: None FINDINGS: Bones: No fractures or dislocations. No suspicious bony lesions. Soft tissues: Medial soft tissue gas probably reflects ulcer. Underlying osseous structures are appro priately mineralized. Large plantar calcaneal spur and small vessel vascular calcification IMPRESSION: Soft tissue gas in the medial soft tissues may reflect ulcer versus gas-forming infection. No osteoly tic lesion Reviewed by: Yaya Tran MD on 08/30/2023 8:54 PM [place] Approved by: Yaya Tran MD on 08/30/2023 8:54 PM [place] Station ID: [id number]
== END 2023-08-30 11:36 | disposition home or self-care (01) ==
LOC: DI 11:35
PROVIDERS: ATTEND Family Medicine
DX: L03.116 Cellulitis of left lower limb (principal)
CPT/HCPCS: 36415; 80053; 85025; 85651; 86140

== ENCOUNTER 2023-09-13 15:13 | Outpatient (CLI) | payer OTHER ==
--- NOTE | 2023-09-13 15:37 | XRAY Report ---
PROCEDURE: Chest 2V INDICATIONS: EDEMA TECHNIQUE: 2 views of the chest were acquired. COMPARISON: Chest x-ray 08/22/2023 FINDINGS: Surgical changes and devices: None. Lungs and pleura: No pleural effusions or pneumothorax. Previous left effusion has resolved. Mediastinum: Mediastinal contours appear normal. Heart size is normal. Bones and chest wall: No suspicious bony lesions. Overlying soft tissues appear unremarkable. IMPRESSION: No acute cardiopulmonary process. Reviewed by: Chiquita Akers MD on 09/13/2023 3:35 PM PST Approved by: Chiquita Akers MD on 09/13/2023 3:35 PM PST Station ID: [id number]
== END 2023-09-13 15:14 | disposition home or self-care (01) ==
LOC: DI 15:13
PROVIDERS: ATTEND Physician Assistant Medical
DX: R60.9 Edema, unspecified (principal)

== ENCOUNTER 2023-10-02 16:08 | Outpatient (CLI) | payer OTHER ==
[2023-10-02 17:00] LABS: BASOPHILS % (AUTO) 0.4 %; EOSINOPHILS # (AUTO) 0.4 10^3/uL (0.0-0.7); EOSINOPHILS % (AUTO) 4.3 %; HCT - HEMATOCRIT 25.6 % (37.0-47.0); HGB - HEMOGLOBIN 7.6 g/dL (12.0-16.0); LYMPHOCYTES # (AUTO) 2.2 10^3/uL (1.5-3.5); LYMPHOCYTES % (AUTO) 22.3 %; MEAN CORPUSCULAR HGB CONC 29.7 g/dL (32.0-36.0); MEAN CORPUSCULAR VOLUME 97.7 fL (81.0-99.0); MEAN PLATELET VOLUME 11.6 fL (7.9-10.8); MONOCYTES # (AUTO) 0.9 10^3/uL (0.0-1.0); MONOCYTES % (AUTO) 8.7 %; NEUTROPHILS # (AUTO) 6.3 10^3/uL (1.5-6.6); NEUTROPHILS % (AUTO) 63.3 %; PLT - PLATELET COUNT 378 10^3/uL (130-450); RED BLOOD COUNT 2.62 10^6/uL (4.20-5.40); RED CELL DISTRIBUTION WIDTH 15.1 % (12.0-15.0); WHITE BLOOD COUNT 9.9 x10^3/uL (4.8-10.8)
[2023-10-02 17:05] LABS: ALBUMIN 3.1 g/dL (3.2-5.5); ALBUMIN/GLOBULIN RATIO 1.2 (1.0-2.2); ALKALINE PHOSPHATASE 115 IU/L (42-121); ALT ALANINE AMINOTRANSFERASE 16 IU/L (10-60); AST ASPARTATE AMINOTRANSFERASE 14 IU/L (10-42); BILIRUBIN,TOTAL 0.2 mg/dL (0.2-1.0); BUN - BLOOD UREA NITROGEN 27 mg/dL (6-20); CALCIUM 8.5 mg/dL (8.5-10.3); CARBON DIOXIDE - CO2 25 mmol/L (21-32); CHLORIDE 108 mmol/L (101-111); CREATININE 1.4 mg/dL (0.6-1.3); CRP - C-REACTIVE PROTEIN < 0.5 mg/dL (<0.5); GFR - MDRD 40 (>89); GLUCOSE 240 mg/dL (74-104); SODIUM 137 mmol/L (135-145); TOTAL PROTEIN 5.7 g/dL (6.4-8.9)
== END 2023-10-02 16:09 | disposition home or self-care (01) ==
LOC: LAB 16:08
PROVIDERS: ATTEND Family Medicine
DX: E11.621 Type 2 diabetes mellitus with foot ulcer (principal); L97.422 Non-pressure chronic ulcer of left heel and midfoot with fat layer exposed
CPT/HCPCS: 36415; 80053; 85025; 85651; 86140

== ENCOUNTER 2023-10-02 16:14 | Outpatient (CLI) | payer OTHER ==
--- NOTE | 2023-10-02 16:57 | XRAY Report ---
PROCEDURE: Calcaneus 2+V LT INDICATIONS: OSTEOMYELITIS TECHNIQUE: Two views of the calcaneus were acquired. COMPARISON: None. FINDINGS: Bones: No fractures or dislocations. Large plantar calcaneal spur. Indistinctness of the cortex foca lly at the weightbearing portion of the calcaneus, posterior to the plantar calcaneal spur. Cannot ex clude subtle changes of osteomyelitis. Soft tissues: No suspicious calcifications. Achilles tendon appears normal. Extensive small vessel calcifications are consistent with long-standing diabetes. IMPRESSION: Cannot exclude subtle changes of osteomyelitis. Consider foot MRI with and without contrast for fur er evaluation Reviewed by: David Rodgers MD on 10/02/2023 4:56 PM PST Approved by: David Rodgers MD on 10/02/2023 4:56 PM PST Station ID: [id number]
== END 2023-10-02 16:15 | disposition home or self-care (01) ==
LOC: DI 16:14
PROVIDERS: ATTEND Family Medicine
DX: L97.422 Non-pressure chronic ulcer of left heel and midfoot with fat layer exposed (principal)

== ENCOUNTER 2023-10-10 17:24 | Outpatient (CLI) | payer OTHER ==
[2023-10-10 17:53] LABS: BASOPHILS # (AUTO) 0.1 10^3/uL (0.0-0.1); BASOPHILS % (AUTO) 0.5 %; EOSINOPHILS # (AUTO) 0.4 10^3/uL (0.0-0.7); EOSINOPHILS % (AUTO) 3.9 %; HCT - HEMATOCRIT 27.2 % (37.0-47.0); HGB - HEMOGLOBIN 8.4 g/dL (12.0-16.0); LYMPHOCYTES # (AUTO) 1.9 10^3/uL (1.5-3.5); LYMPHOCYTES % (AUTO) 19.2 %; MEAN CORPUSCULAR HEMOGLOBIN 28.9 pg (27.0-31.0); MEAN CORPUSCULAR HGB CONC 30.9 g/dL (32.0-36.0); MEAN CORPUSCULAR VOLUME 93.5 fL (81.0-99.0); MEAN PLATELET VOLUME 11.2 fL (7.9-10.8); MONOCYTES # (AUTO) 0.7 10^3/uL (0.0-1.0); MONOCYTES % (AUTO) 7.1 %; NEUTROPHILS # (AUTO) 6.9 10^3/uL (1.5-6.6); NEUTROPHILS % (AUTO) 68.6 %; PLT - PLATELET COUNT 282 10^3/uL (130-450); RED BLOOD COUNT 2.91 10^6/uL (4.20-5.40); RED CELL DISTRIBUTION WIDTH 14.5 % (12.0-15.0); WHITE BLOOD COUNT 10.1 x10^3/uL (4.8-10.8)
[2023-10-10 18:03] LABS: ALBUMIN 3.2 g/dL (3.2-5.5); ALBUMIN/GLOBULIN RATIO 1.2 (1.0-2.2); BILIRUBIN,TOTAL 0.3 mg/dL (0.2-1.0); CALCIUM 8.9 mg/dL (8.5-10.3); CREATININE 1.2 mg/dL (0.6-1.3); CRP - C-REACTIVE PROTEIN 1.5 mg/dL (<0.5); POTASSIUM 4.5 mmol/L (3.5-4.5); TOTAL PROTEIN 5.9 g/dL (6.4-8.9)
== END 2023-10-10 17:25 | disposition home or self-care (01) ==
LOC: LAB 17:24
PROVIDERS: ATTEND Family Medicine
DX: E11.621 Type 2 diabetes mellitus with foot ulcer (principal); L97.422 Non-pressure chronic ulcer of left heel and midfoot with fat layer exposed; L03.116 Cellulitis of left lower limb
CPT/HCPCS: 36415; 80053; 85025; 85651; 86140

== ENCOUNTER 2023-10-31 15:57 | Outpatient (CLI) | payer OTHER ==
[2023-10-31 16:44] LABS: ALBUMIN 3.2 g/dL (3.2-5.5); ALBUMIN/GLOBULIN RATIO 1.2 (1.0-2.2); BILIRUBIN,TOTAL 0.3 mg/dL (0.2-1.0); CALCIUM 8.9 mg/dL (8.5-10.3); CREATININE 1.4 mg/dL (0.6-1.3); PHOSPHORUS 3.2 mg/dL (2.5-5.0); TOTAL PROTEIN 5.9 g/dL (6.4-8.9)
[2023-10-31 17:01] LABS: BASOPHILS # (AUTO) 0.1 10^3/uL (0.0-0.1); BASOPHILS % (AUTO) 0.7 %; EOSINOPHILS # (AUTO) 0.4 10^3/uL (0.0-0.7); EOSINOPHILS % (AUTO) 3.9 %; HCT - HEMATOCRIT 28.6 % (37.0-47.0); HGB - HEMOGLOBIN 8.9 g/dL (12.0-16.0); LYMPHOCYTES # (AUTO) 2.2 10^3/uL (1.5-3.5); LYMPHOCYTES % (AUTO) 21.4 %; MEAN CORPUSCULAR HGB CONC 31.1 g/dL (32.0-36.0); MEAN CORPUSCULAR VOLUME 93.2 fL (81.0-99.0); MONOCYTES # (AUTO) 0.6 10^3/uL (0.0-1.0); MONOCYTES % (AUTO) 6.1 %; NEUTROPHILS # (AUTO) 6.8 10^3/uL (1.5-6.6); NEUTROPHILS % (AUTO) 67.3 %; PLT - PLATELET COUNT 315 10^3/uL (130-450); RED BLOOD COUNT 3.07 10^6/uL (4.20-5.40); RED CELL DISTRIBUTION WIDTH 13.9 % (12.0-15.0); WHITE BLOOD COUNT 10.2 x10^3/uL (4.8-10.8)
[2023-10-31 17:04] LABS: CREATININE,URINE 46.8 mg/dL; PROTEIN/CREATININE RATIO,URINE 3.5 (<=0.2)
--- NOTE | 2023-10-31 22:31 | WOUND CARE PROGRESS NOTE ---
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 - Results Lab Results: Laboratory Results Sodium 137 mmol/L (135-145) 10/31/23 16:14 Potassium 5.0 mmol/L (3.5-4.5) H 10/31/23 16:14 Chloride 109 mmol/L (101-111) 10/31/23 16:14 Carbon Dioxide 26 mmol/L (21-32) 10/31/23 16:14 Anion Gap 2.0 (6-13) L 10/31/23 16:14 BUN 35 mg/dL (6-20) H 10/31/23 16:14 Creatinine 1.4 mg/dL (0.6-1.3) H 10/31/23 16:14 Glucose 144 mg/dL (74-104) H 10/31/23 16:14 Calcium 8.9 mg/dL (8.5-10.3) 10/31/23 16:14 Total Bilirubin 0.3 mg/dL (0.2-1.0) 10/31/23 16:14 AST 14 IU/L (10-42) 10/31/23 16:14 ALT 16 IU/L (10-60) 10/31/23 16:14 Alkaline Phosphatase 122 IU/L (42-121) H 10/31/23 16:14 Total Protein 5.9 g/dL (6.4-8.9) L 10/31/23 16:14 Albumin 3.2 g/dL (3.2-5.5) 10/31/23 16:14 Globulin 2.7 g/dL (2.1-4.2) 10/31/23 16:14 Albumin/Globulin Ratio 1.2 (1.0-2.2) 10/31/23 16:14 - Home Meds/Allergies Allergies chocolate flavor Allergy (Verified 10/12/23 16:15) Anaphylaxis glyburide Allergy (Verified 10/12/23 16:15) Unknown Iodinated Contrast Media [Iodinated Contrast Media - IV Dye] Allergy (Verified 10/12/23 16:15) Hives latex Allergy (Verified 10/12/23 16:15) Unknown penicillinase Allergy (Verified 10/12/23 16:15) nausea, dizziness, syncope sulfamethoxazole [From Bactrim] Allergy (Verified 10/12/23 16:15) Unknown trimethoprim [From Bactrim] Allergy (Verified 10/12/23 16:15) Unknown hydromorphone HCl * [From Dilaudid] Adverse Reaction (Unknown, Verified 10/12/23 16:15) Hallucinations Ankle-Brachial Index (AKHIL) Findings: Service Date 08/16/23 Service Time 13:00
== END 2023-10-31 15:58 | disposition home or self-care (01) ==
LOC: LAB 15:57
PROVIDERS: ATTEND Family Medicine
DX: I50.32 Chronic diastolic (congestive) heart failure (principal); E11.621 Type 2 diabetes mellitus with foot ulcer; L97.422 Non-pressure chronic ulcer of left heel and midfoot with fat layer exposed; D70.9 Neutropenia, unspecified; D63.1 Anemia in chronic kidney disease; N05.9 Unspecified nephritic syndrome with unspecified morphologic changes; E83.30 Disorder of phosphorus metabolism, unspecified; N25.81 Secondary hyperparathyroidism of renal origin; R80.9 Proteinuria, unspecified
CPT/HCPCS: 36415; 80053; 82570; 83880; 83970; 84100; 84156; 85025; 86140

== ENCOUNTER 2023-11-01 16:28 | Outpatient (CLI) | payer OTHER ==
[2023-11-01 22:46] LABS: ESTIMATED AVERAGE GLUCOSE 169 mg/dL (70-100); HEMOGLOBIN A1c% 7.5 % (4.27-6.07)
== END 2023-11-01 16:29 | disposition home or self-care (01) ==
LOC: LAB 16:28
PROVIDERS: ATTEND Physician Assistant Medical
DX: E11.621 Type 2 diabetes mellitus with foot ulcer (principal); L97.422 Non-pressure chronic ulcer of left heel and midfoot with fat layer exposed
CPT/HCPCS: 36415; 83036; 85651

== ENCOUNTER 2023-11-26 17:39 | Outpatient (CLI) | payer OTHER ==
--- NOTE | 2023-11-27 08:03 | Ultrasound Report ---
PROCEDURE: Duplex Ext Veins Left INDICATIONS: LEFT LEG PAIN TECHNIQUE: Real-time imaging, as well as color and pulse Doppler interrogation, were performed of the lower extr emity deep veins from the inguinal ligament to the popliteal fossa. Attempted visualization of the ca lf veins was performed. COMPARISON: None. FINDINGS: The deep veins are normally compressible, and free of intraluminal thrombus. Color and pu lse Doppler demonstrate normal phasic intraluminal flow. There is normal augmentation response to di stal compression maneuver. Lower leg veins were not well seen. Limited exam due to body habitus and edema. IMPRESSION: No deep venous thrombosis of the visualized lower extremity. Lower leg veins were not we ll seen. Limited exam due to large body habitus and edema. Reviewed by: Tristin Martinez MD on 11/27/2023 8:02 AM PDT Approved by: Tristin Martinez MD on 11/27/2023 8:02 AM PDT Station ID: [id number]
== END 2023-11-26 17:40 | disposition home or self-care (01) ==
LOC: DI 17:39
PROVIDERS: ATTEND Family Medicine
DX: M25.472 Effusion, left ankle (principal); L97.422 Non-pressure chronic ulcer of left heel and midfoot with fat layer exposed; E11.621 Type 2 diabetes mellitus with foot ulcer; L03.116 Cellulitis of left lower limb; Z79.2 Long term (current) use of antibiotics

== ENCOUNTER 2024-03-24 14:49 | Outpatient (CLI) | payer OTHER ==
[2024-03-24 15:28] LABS: MAGNESIUM 1.7 mg/dL (1.7-2.3)
[2024-03-24 15:34] LABS: CHOL/HDL RATIO 4.5 (<4.4); CHOLESTEROL 170 mg/dL; HDL CHOLESTEROL 38 mg/dL; LDL CHOLESTEROL,CALCULATED 81 mg/dL; LDL/HDL RATIO 2.1 (<4.4); TRIGLYCERIDES 257 mg/dL; VLDL CHOLESTEROL 51 mg/dL
[2024-03-24 22:46] LABS: ESTIMATED AVERAGE GLUCOSE 217 mg/dL (70-100); HEMOGLOBIN A1c% 9.2 % (4.27-6.07)
== END 2024-03-24 14:50 | disposition home or self-care (01) ==
LOC: LAB 14:49
PROVIDERS: ATTEND Physician Assistant Medical
DX: I25.10 Atherosclerotic heart disease of native coronary artery without angina pectoris (principal); E11.9 Type 2 diabetes mellitus without complications; G25.0 Essential tremor
CPT/HCPCS: 36415; 80061; 83036; 83721; 83735

== ENCOUNTER 2024-03-27 13:55 | Outpatient (CLI) | payer OTHER ==
[2024-03-27 14:39] LABS: CALCIUM 9.4 mg/dL (8.5-10.3); CREATININE 1.6 mg/dL (0.6-1.3); POTASSIUM 5.7 mmol/L (3.5-4.5)
== END 2024-03-27 13:56 | disposition home or self-care (01) ==
LOC: LAB 13:55
PROVIDERS: ATTEND Physician Assistant Medical
DX: E87.5 Hyperkalemia (principal)
CPT/HCPCS: 36415; 80048

== ENCOUNTER 2024-04-06 18:17 | Emergency (ER) | payer OTHER ==
--- NOTE | 2024-04-06 18:52 | ED Physician Documentation ---
PD HPI CHEST PAIN - Stated complaint Stated Complaint: CHEST PX/N - Chief complaint Chief Complaint: Cardiac - History obtained from History obtained from: Patient - Additional information Additional information: This is a 48-year-old female who has a history of type 2 diabetes, Peripheral neuropathy, bipolar disorder, hypertension, DVT on Eliquis, asthma, obesity who presents with multiple different issues today. She reports intermittent chest pain at for the last 2 days, in the left chest rating up into the shoulder at times. She also has had nausea for the past week, and vomited x 1 yesterday, nonbloody, nonbilious. She is also reporting generalized body aches, shortness of breath, and dizziness. She has also had left mid abdominal pain. She has not had a cough, no sore throat, no ear pain, no dysuria urgency or frequency, no diarrhea or constipation. The patient states that she had Left heart cath last year and it was reportedly clear and she has had some intermittent chest pain in the past for which she is post to take nitro. She did take it on a couple of occasions at home but did not find any relief with this. Review of Systems Constitutional: reports: Chills, Myalgias, Fatigue. denies: Fever Eyes: reports: Reviewed and negative Ears: reports: Reviewed and negative Nose: reports: Reviewed and negative Throat: reports: Reviewed and negative Cardiac: reports: Chest pain / pressure. denies: Palpitations, Pedal edema, Calf pain Respiratory: reports: Dyspnea. denies: Cough, Hemoptysis, Wheezing GI: reports: Abdominal Pain, Nausea, Vomiting. 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 ARTIST: Ovarian cysts HEENT: None Psych: Anxiety, Bipolar disorder, Post traumatic stress disorder, Claustrophobia Musculoskeletal: Fibromyalgia, Other Derm: Other - Past Surgical History Past Surgical History: Yes General: Colonoscopy, Other - Present Medications Home Medications: Ambulatory Orders Medication Instructions Recorded Confirmed Acetaminophen [Pain Relief Extra 1,000 mg PO Q6HR PRN 08/24/23 03/25/24 Strength] Albuterol Sulfate [Proair 2 puffs ORAL Q4H 08/24/23 03/25/24 Respiclick] Apixaban [Eliquis] 5 mg PO BID 08/24/23 03/25/24 Aspirin EC [Ecotrin] 81 mg PO DAILY 08/24/23 03/25/24 Atorvastatin Calcium 40 mg PO DAILY 08/24/23 03/25/24 Butalbital/Aspirin/Caffeine 1 cap PO Q4HR 08/24/23 03/25/24 [Trmkmpumto-MLV-Wzzbvoqy Cap] Cyclobenzaprine [Flexeril] 10 mg PO TID PRN 08/24/23 03/25/24 Dulaglutide [Trulicity] 0.5 ml INJ ONCE MDD once weekly 08/24/23 03/25/24 Furosemide [Lasix] 2 tab PO DAILY 08/24/23 03/25/24 Glimepiride [Amaryl] 4 mg PO 0800 08/24/23 03/25/24 Insulin Glargine [Lantus Solostar] 25 units INJ QPM 08/24/23 03/25/24 Omeprazole Magnesium 20 mg PO BID 08/24/23 03/25/24 Ondansetron Odt [Zofran] 8 mg TL Q8HR PRN 08/24/23 03/25/24 Pregabalin [Lyrica] 100 mg PO BID 08/24/23 03/25/24 amLODIPine [Norvasc] 2.5 mg PO DAILY 08/24/23 03/25/24 carvediloL [Coreg] 4 tab PO BID 08/24/23 03/25/24 Mecobalamin [B12 Active] 5,000 mcg PO DAILY 10/26/23 03/25/24 Clobetasol Propionate See Rx Instructions .ROUTE 02/21/24 03/25/24 .COMPLEX #60 gm - Allergies Allergies/Adverse Reactions: Allergies Allergy/AdvReac Type Severity Reaction Status Date / Time chocolate flavor Allergy Anaphylaxis Verified 04/06/24 18:26 glyburide Allergy Unknown Verified 04/06/24 18:26 Iodinated Contrast Media Allergy Hives Verified 04/06/24 18:26 [Iodinated Contrast Media - IV Dye] latex Allergy Unknown Verified 04/06/24 18:26 penicillinase Allergy nausea, Verified 04/06/24 18:26 dizziness, syncope sulfamethoxazole Allergy Unknown Verified 04/06/24 18:26 [From Bactrim] trimethoprim [From Bactrim] Allergy Unknown Verified 04/06/24 18:26 hydromorphone HCl * AdvReac Unknown Hallucinati Verified 04/06/24 18:26 [From Dilaudid] ons ketorolac [From Toradol] AdvReac Unknown Verified 04/06/24 18:26 - Social History Does the pt smoke?: No Smoking Status: Former smoker Does the pt drink ETOH?: No Does the pt have substance abuse?: No - Immunizations Immunizations are current?: Yes - POLST Patient has POLST: No PD ED PE NORMAL - Vitals Vital signs reviewed: Yes - General General: Alert and oriented X 3, No acute distress, Well developed/nourished - HEENT HEENT: Atraumatic, Moist mucous membranes, Pharynx benign - Neck Neck: Supple, no meningeal sign, No bony TTP, No JVD - Cardiac Cardiac: RRR, No murmur, No gallop, No rub, Strong equal pulses - Respiratory Respiratory: No respiratory distress, Clear bilaterally - Abdomen Abdomen: Normal bowel sounds, Soft, Non distended, Other (Mild left lower quadrant tenderness) - Back Back: No CVA TTP, No spinal TTP - Derm Derm: Normal color, Warm and dry, No rash - Neuro Neuro: Alert and oriented X 3 Eye Opening: Spontaneous Motor: Obeys Commands Verbal: Oriented GCS Score: 15 - Psych Psych: Normal mood, Normal affect Results - Vitals Vitals: Vital Signs - 24 hr 04/06/24 04/06/24 04/06/24 18:26 18:35 21:20 Temperature 36.9 C Heart Rate 88 86 70 Respiratory 18 20 20 Rate Blood Pressure 153/101 H 157/92 H 172/77 H O2 Saturation 97 97 98 Oxygen O2 Source Room air - EKG (time done) No standard instances EKG releavant findings:: EKG personally interpreted by author of this note. Relevant findings are: Rate: Rate (enter#) (92) Rhythm: NSR Casa: Normal Intervals: Normal [place] QRS: Normal Ischemia: Normal ST segments, Non specific changes Computer interpretation: Agree with computer - Labs Labs: Laboratory Tests 04/06/24 04/06/24 04/06/24 19:05 19:05 19:30 WBC 12.4 H RBC 3.87 L Hgb 11.1 L Hct 33.9 L MCV 87.6 MCH 28.7 MCHC 32.7 RDW 12.7 Plt Count 305 MPV 11.0 H Neut # (Auto) 9.6 H Lymph # (Auto) 1.7 [place] # (Auto) 0.7 Eos # (Auto) 0.3 Baso # (Auto) 0.1 Absolute Nucleated RBC 0.00 Nucleated RBC % 0.0 Sodium 134 L Potassium 5.1 H Chloride 106 Carbon Dioxide 21 Anion Gap 7.0 BUN 33 H Creatinine 1.5 H Estimated GFR (MDRD) 37 L Glucose 228 H Calcium 9.4 Total Bilirubin 0.3 AST 16 ALT 14 Alkaline Phosphatase 122 H Troponin I High Sens 3.6 Total Protein 6.9 Albumin 3.6 Globulin 3.3 Albumin/Globulin Ratio 1.1 Lipase 14 Urine Color Urine Clarity Urine pH Ur Specific [place] Urine Protein Urine Glucose (UA) Urine Ketones Urine Occult Blood Urine Nitrite Urine Bilirubin Urine Urobilinogen Ur Leukocyte Esterase Urine RBC Urine WBC Ur Squamous Epith Cells Urine Bacteria Ur Microscopic Review Urine Culture Comments Nasal Adenovirus (PCR) NOT DETECTED Nasal B. parapertussis DNA (PCR) NOT DETECTED Nasal Coronavir 229E PCR NOT DETECTED Nasal Coronavir HKU1 PCR NOT DETECTED Nasal Coronavir NL63 PCR NOT DETECTED Nasal Coronavir OC43 PCR NOT DETECTED Nasal Enterovir/Rhinovir PCR NOT DETECTED Nasal Influenza B PCR NOT DETECTED Nasal Influenza A PCR NOT DETECTED Nasal Parainfluen 1 PCR NOT DETECTED Nasal Parainfluen 2 PCR NOT DETECTED Nasal Parainfluen 3 PCR NOT DETECTED Nasal Parainfluen 4 PCR NOT DETECTED Nasal RSV (PCR) NOT DETECTED Nasal B.pertussis DNA PCR NOT DETECTED Nasal C.pneumoniae (PCR) NOT DETECTED Nazario Human Metapneumo PCR NOT DETECTED Nasal M.pneumoniae (PCR) NOT DETECTED Nasal SARS-CoV-2 (PCR) NOT DETECTED 04/06/24 19:40 WBC RBC Hgb Hct MCV MCH MCHC RDW Plt Count MPV Neut # (Auto) Lymph # (Auto) [place] # (Auto) Eos # (Auto) Baso # (Auto) Absolute Nucleated RBC Nucleated RBC % Sodium Potassium Chloride Carbon Dioxide Anion Gap BUN Creatinine Estimated GFR (MDRD) Glucose Calcium Total Bilirubin AST ALT Alkaline Phosphatase Troponin I High Sens Total Protein Albumin Globulin Albumin/Globulin Ratio Lipase Urine Color LT RED Urine Clarity HAZY Urine pH 6.0 Ur Specific [place] 1.025 Urine Protein >=300 H Urine Glucose (UA) 250 H Urine Ketones NEGATIVE Urine Occult Blood LARGE H Urine Nitrite NEGATIVE Urine Bilirubin NEGATIVE Urine Urobilinogen 0.2 (NORMAL) Ur Leukocyte Esterase NEGATIVE Urine RBC TNTC H Urine WBC 0-3 Ur Squamous Epith Cells RARE Squamous Urine Bacteria None Seen Ur Microscopic Review INDICATED Urine Culture Comments NOT INDICATED Nasal Adenovirus (PCR) Nasal B. parapertussis DNA (PCR) Nasal Coronavir 229E PCR Nasal Coronavir HKU1 PCR Nasal Coronavir NL63 PCR Nasal Coronavir OC43 PCR Nasal Enterovir/Rhinovir PCR Nasal Influenza B PCR Nasal Influenza A PCR Nasal Parainfluen 1 PCR Nasal Parainfluen 2 PCR Nasal Parainfluen 3 PCR Nasal Parainfluen 4 PCR Nasal RSV (PCR) Nasal B.pertussis DNA PCR Nasal C.pneumoniae (PCR) Naz[place] Human Metapneumo PCR Nasal M.pneumoniae (PCR) Nasal SARS-CoV-2 (PCR) PD Medical Decision Making - ED course Complexity details: reviewed old records, reviewed results, re-evaluated patient, considered differential, d/w patient, d/w family ED course: This is a 48-year-old female with past medical history is as above who presented with multiple different complaints today including chest pain which patient reportedly has intermittently, with the reassuring heart cath within the last year, nausea for the past week, vomiting x 1, generalized body aches, left lower quadrant abdominal pain. Given her causation of symptoms, the differential is broad including viral syndrome, pneumonia, UTI, ACS, diverticulitis, reflux among others. The patient does have a history of DVT but she is on Eliquis and I think unlikely to have PE. We obtained lab work which is reassuring, her kidney function is actually improved from prior, potassium has also improved as she previously is quite elevated, her urinalysis is not suggestive of infection and patient is on her menstrual period accounting for the blood in her urine. Her troponin is within normal and EKG shows no acute ischemic change, chest x- ray is negative. Her respiratory viral panel is negative. Given patient's ongoing left lower quadrant pain, I did order a CT Noncon which is pending at this time. Patient was given some IV fluids as well as Zofran and it has been stable here. She will be signed out to Dr. Thapa pending the results of her CT scan. Anticipate the patient should be able to discharge home thereafter. Departure - Departure Forms: PCP List
--- NOTE | 2024-04-06 19:12 | XRAY Report ---
PROCEDURE: Chest 1V INDICATIONS: Chest pain TECHNIQUE: One view of the chest was acquired. COMPARISON: 10/02/2023 FINDINGS: Surgical changes and devices: None. Lungs and pleura: No pleural effusions or pneumothorax. Lungs are clear. Mediastinum: Mediastinal contours appear normal. Heart size is normal. Bones and chest wall: No suspicious bony lesions. Overlying soft tissues appear unremarkable. IMPRESSION: No acute cardiopulmonary findings Reviewed by: Yaya Tran MD on 04/06/2024 6:10 PM AKDT Approved by: Yaya Tran MD on 04/06/2024 6:10 PM AKDT Station ID: [id number]
[2024-04-06 19:15] LABS: BASOPHILS # (AUTO) 0.1 10^3/uL (0.0-0.1); BASOPHILS % (AUTO) 0.7 %; EOSINOPHILS # (AUTO) 0.3 10^3/uL (0.0-0.7); HCT - HEMATOCRIT 33.9 % (37.0-47.0); HGB - HEMOGLOBIN 11.1 g/dL (12.0-16.0); LYMPHOCYTES # (AUTO) 1.7 10^3/uL (1.5-3.5); LYMPHOCYTES % (AUTO) 13.8 %; MEAN CORPUSCULAR HEMOGLOBIN 28.7 pg (27.0-31.0); MEAN CORPUSCULAR HGB CONC 32.7 g/dL (32.0-36.0); MEAN CORPUSCULAR VOLUME 87.6 fL (81.0-99.0); MONOCYTES # (AUTO) 0.7 10^3/uL (0.0-1.0); MONOCYTES % (AUTO) 5.6 %; NEUTROPHILS # (AUTO) 9.6 10^3/uL (1.5-6.6); NEUTROPHILS % (AUTO) 77.5 %; PLT - PLATELET COUNT 305 10^3/uL (130-450); RED BLOOD COUNT 3.87 10^6/uL (4.20-5.40); RED CELL DISTRIBUTION WIDTH 12.7 % (12.0-15.0); WHITE BLOOD COUNT 12.4 x10^3/uL (4.8-10.8)
[2024-04-06 19:36] LABS: ALBUMIN 3.6 g/dL (3.2-5.5); ALBUMIN/GLOBULIN RATIO 1.1 (1.0-2.2); BILIRUBIN,TOTAL 0.3 mg/dL (0.2-1.0); CALCIUM 9.4 mg/dL (8.5-10.3); CREATININE 1.5 mg/dL (0.6-1.3); POTASSIUM 5.1 mmol/L (3.5-4.5); TOTAL PROTEIN 6.9 g/dL (6.4-8.9)
[2024-04-06 19:39] LABS: TROPONIN I HIGH SENSITIVITY 3.6 ng/L (2.3-14.8)
[2024-04-06 19:56] LABS: BILIRUBIN,URINE NEGATIVE (NEGATIVE); GLUCOSE, URINE (UA) 250 mg/dL (NEGATIVE); KETONES,URINE (UA) NEGATIVE (NEGATIVE); LEUKOCYTE ESTERASE, URINE NEGATIVE (NEGATIVE); NITRITE,URINE NEGATIVE (NEGATIVE); OCCULT BLOOD,URINE LARGE (NEGATIVE); PROTEIN,URINE >=300 mg/dL (NEGATIVE); UROBILINOGEN,URINE 0.2 (NORMAL) E.U./dL (NORMAL)
[2024-04-06] MEDS: SODIUM CHLORIDE 0.9% 1,000 ML IV STA (19:56)
[2024-04-06] MEDS: ONDANSETRON 4 MG/2 ML VIAL IVP STA (19:56)
[2024-04-06 19:57] LABS: CLARITY,URINE HAZY (CLEAR)
[2024-04-06 20:05] LABS: BACTERIA,URINE None Seen /HPF (None Seen); RBC,URINE TNTC /HPF (0-5); SQUAMOUS EPITHELIAL CELL,UR RARE Squamous (<= Few); WBC,URINE 0-3 /HPF (0-5)
[2024-04-06 20:26] LABS: B. PARAPERTUSSIS- RESP PCR PAN NOT DETECTED; B. PERTUSSIS- RESP PCR PANEL NOT DETECTED; C. PNEUMONIAE- RESP PCR PANEL NOT DETECTED; CORONAVIRUS 229E-RESP PCR NOT DETECTED; CORONAVIRUS HKU1-RESP PCR NOT DETECTED; CORONAVIRUS NL63-RESP PCR NOT DETECTED; CORONAVIRUS OC43-RESP PCR NOT DETECTED; HUMAN METAPNEUMOVIRUS NOT DETECTED; INFLUENZA A- RESP PCR PANEL NOT DETECTED; INFLUENZA B - RESP PCR PANEL NOT DETECTED; M. PNEUMONIAE- RESP PCR PANEL NOT DETECTED; PARAINFLUENZA VIRUS 1 NOT DETECTED; PARAINFLUENZA VIRUS 2 NOT DETECTED; PARAINFLUENZA VIRUS 3 NOT DETECTED; PARAINFLUENZA VIRUS 4 NOT DETECTED; RHINOVIRUS/ENTEROVIRUS NOT DETECTED; RSV- RESP PCR PANEL NOT DETECTED; SARS-CoV-2 -RESP PCR PANEL NOT DETECTED
[2024-04-06 21:32] VITALS: BP 172/77; O2SAT 98
== END 2024-04-06 22:25 | disposition home or self-care (01) ==
LOC: ED 18:17
DX: R10.32 Left lower quadrant pain (principal); R11.2 Nausea with vomiting, unspecified; Z87.891 Personal history of nicotine dependence
CPT/HCPCS: 36415; 80053; 81001; 81003; 83690; 84484; 85025; 87086; 87633; 93005; 96374; 99284

== ENCOUNTER 2024-04-28 14:41 | Outpatient (CLI) | payer OTHER ==
--- NOTE | 2024-04-30 13:25 | Ultrasound Report ---
PROCEDURE: Pelvic w/Transvaginal INDICATIONS: PELVIC PAIN TECHNIQUE: Real-time scanning was performed of the pelvic organs, with image documentation. Additional endovagi nal scanning was necessary due to incomplete visualization of the adnexal and endometrial structures by transabdominal scanning. COMPARISON: Pelvic ultrasound dated July 08, 2010. FINDINGS: Uterus: Uterus is anteverted and normal in size at 9.2 x 5.2 x 6.5 cm. The myometrium is heterogene ous. The endometrium measures 10.2 mm in combined thickness. Ovaries: The right ovary measures 2.3 x 2.3 x 2.1 cm, with a calculated ovarian volume of 5.8 cc. T he left ovary measures 2.7 x 2.6 x 3.6 cm, with a calculated ovarian volume of 13.2 cc. Complex cyst involving the left ovary measuring 2.8 cm. Less than 12 follicles can be seen in each ovary. No adn exal masses are seen. Other: No pathologic free abdominal or pelvic fluid. IMPRESSION: Complex, likely hemorrhagic left ovarian cyst measuring up to 2.8 cm. If indicated, short-term follow -up ultrasound could be performed in 6-12 weeks. Heterogeneous myometrium which can be associated with adenomyosis in the appropriate clinical setting . Reviewed by: RICK Prajapati on 04/30/2024 1:23 PM PDT Approved by: Chiquita Akers MD on 04/30/2024 1:23 PM PDT Station ID: [id number]
== END 2024-04-28 14:42 | disposition home or self-care (01) ==
LOC: DI 14:41
PROVIDERS: ATTEND Obstetrics & Gynecology
DX: N83.202 Unspecified ovarian cyst, left side (principal); N94.10 Unspecified dyspareunia; E66.01 Morbid (severe) obesity due to excess calories

== ENCOUNTER 2024-12-05 10:02 | Observation (INO) ==
--- NOTE | 2024-12-05 10:32 | ED Physician Documentation ---
History of Present Illness Stated complaint Stated Complaint: N/V Chief complaint Chief Complaint: Abd Pain History obtained from History obtained from: Patient and Family Additonal information Additional information: This is a 49-year-old woman who is medically complex, she has a history of type 2 diabetes, small coronary arteries, popliteal artery aneurysm, PTSD and bipolar. I saw her Sunday evening (2 days ago) for abdominal pain and vomiting. She had taken her Mounjaro on Sunday and it was gets nauseous after that but this was much worse. She had a CT showing hydropic gallbladder with stones and ultrasound also showing stones but no obvious cholecystitis. She wanted to go home and was really discharged before the workup was complete. She had a white count of 17,000 with no elevation in liver enzymes. She returns with today still vomiting forcefully with a lot of abdominal pain. No fevers. No blood in the vomit. Meds/Allgy Home Medications Ambulatory Orders Medication Instructions Recorded Confirmed acetaminophen 500 mg tablet (Pain 1,000 mg PO Q6HR PRN Pain 1-4 08/24/23 Relief Extra Strength (acetaminophen)) albuterol sulfate 90 mcg/actuation 2 puff ORAL Q4H 08/24/23 09/22/24 breath activated powder inhaler (ProAir RespiClick) aspirin 81 mg tablet,delayed 81 mg PO DAILY 08/24/23 09/22/24 release atorvastatin 40 mg tablet 40 mg PO DAILY 08/24/23 09/22/24 omeprazole magnesium 20 mg 20 mg PO BID 08/24/23 09/22/24 capsule,delayed release amlodipine 5 mg tablet 5 mg PO DAILY 06/24/24 09/22/24 fluticasone propionate 110 2 puff inhalation BID 06/24/24 09/22/24 mcg/actuation HFA aerosol inhaler furosemide 20 mg tablet 40 mg PO QAM 06/24/24 09/22/24 isosorbide mononitrate 120 mg 1 mg PO DAILY 06/24/24 09/22/24 tablet,extended release 24 hr lancets 31 gauge #3 ea 06/24/24 09/22/24 meclizine 25 mg tablet 25 mg PO TID PRN dizziness #30 tabs 06/24/24 09/22/24 pregabalin 50 mg capsule 100 mg PO BID 06/24/24 09/22/24 trazodone 50 mg tablet 50 mg PO QDAY PRN insomnia 06/24/24 09/22/24 nitroglycerin 0.4 mg sublingual See Rx Instructions .Route 07/23/24 09/22/24 tablet .COMPLEX PRN chest pain #90 tabs apixaban 5 mg tablet (Eliquis) 5 mg PO BID #180 tabs 09/13/24 09/22/24 insulin glargine 100 unit/mL (3 60 unit (0.6 mL) subcut QPM #45 mL 09/22/24 09/22/24 mL) subcutaneous pen (Lantus Solostar U-100 Insulin) metoclopramide HCl 10 mg tablet 10 mg PO QAC #90 tabs 09/22/24 09/22/24 tirzepatide 12.5 mg/0.5 mL 12.5 mg (0.5 mL) subcut QWEEK #2 mL 09/22/24 09/22/24 subcutaneous pen injector glimepiride 4 mg tablet 4 mg PO QDAY #90 tabs 09/26/24 ondansetron 4 mg disintegrating 8 mg (2 x 4 mg) translingual Q8HR 10/23/24 tablet PRN Nausea / Vomiting #30 tabs cyclobenzaprine 10 mg tablet 10 mg PO TID PRN muscle spasm #180 11/20/24 tabs carvedilol 25 mg tablet 25 mg PO BID #180 tabs 11/25/24 Allergies Allergies Allergy/AdvReac Type Severity Reaction Status Date / Time chocolate flavor Allergy Anaphylaxis Verified 12/05/24 10:30 glyburide Allergy Unknown Verified 12/05/24 10:30 Iodinated Contrast Media Allergy Hives Verified 12/05/24 10:30 (Iodinated Contrast Media - IV Dye) latex Allergy Unknown Verified 12/05/24 10:30 penicillinase Allergy nausea, Verified 12/05/24 10:30 dizziness, syncope sulfamethoxazole (From Allergy Unknown Verified 12/05/24 10:30 Bactrim) trimethoprim (From Bactrim) Allergy Unknown Verified 12/05/24 10:30 norethindrone AdvReac Severe Cramps Verified 12/05/24 10:30 hydromorphone HCl * (From AdvReac Unknown Hallucinati Verified 12/05/24 10:30 Dilaudid) ons ketorolac (From Toradol) AdvReac Unknown Verified 12/05/24 10:30 [facility] Active Problems All Active Problems (Updated 12/05/24 @ 12:38 by Reed Stone MD) Uncontrolled diabetes mellitus (Acute) BENSON (acute kidney injury) (Acute) Vomiting (Acute) Abdominal pain (Acute) Erythema (Acute) Venous insufficiency (chronic) (peripheral) (Acute) Local infection of the skin and subcutaneous tissue, unspecified (Acute) Non-pressure chronic ulcer of left heel and midfoot with fat layer exposed (Acute) Pelvic pain in female (Acute) Essential tremor (Acute) PTSD (post-traumatic stress disorder) (Acute) Bipolar 1 disorder (Acute) Obsessive compulsive disorder (Acute) Migraine (Acute 09/28/22) Asthma (Acute 07/10/14) Wound infection (Acute 07/23/23) Hypertension, essential, benign (Acute 06/04/19) Hyperlipidemia (Acute 05/07/09) Herpes genitalis (Acute 06/07/09) Hallucinations (Acute 10/28/21) Gastroparesis (Acute 06/07/09) Fibromyalgia (Acute 05/05/09) Elevated serum creatinine (Acute 04/06/23) Edema (Acute 09/05/23) Carotid artery stenosis (Acute 11/01/21) CAD (coronary artery disease) (Acute 08/15/23) Blindness, bilateral (Acute 03/26/23) Amenorrhea (Acute 02/11/10) Acute occlusion of popliteal artery due to thromboembolism (Acute 08/15/23) Acute kidney failure, unspecified (Acute 11/01/21) Pyoderma gangrenosum (Acute) Pleural effusion (Acute) Anemia, iron deficiency (Acute) Non-pressure chronic ulcer of left heel and midfoot with unspecified severity (Acute) Head injury (Acute) Hyperglycemia due to type 2 diabetes mellitus (Acute) Medical History Medical History (Updated 12/05/24 @ 12:38 by Reed Stone MD) Menorrhagia (07/15/10) Hyponatremia (11/01/21) Abnormal brain MRI (12/07/21) Social History Social History (Updated 12/05/24 @ 10:39 by Dori Reynoso RN) Smoking Status: Former smoker If you are a former smoker, when did you quit? (Date/Year): 2017 Number of Years Smoked: 10 How many cigarettes a day do you smoke? (20 cigarettes=1 Pk): 2 Do you dip or chew tobacco?: Yes Do you vape?: No Patient requests smoking cessation consult: Yes Initiate information on smoking cessation: Yes Marital Status: Living Condition: With spouse/s.o. Support Person: Yes Relationship: Do you feel safe in your home environment?: Yes Suffered physical, verbal, emotional, or financial abuse?: No History of Abuse: No Frequency: Occasional Service: No POLST Patient has POLST: No Exam Constitutional normal general appearance She looks uncomfortable Respiratory breath sounds equal bilaterally, normal respiratory effort and clear to ausc ultation bilaterally Cardiovascular normal heart rate noted, regular rhythm noted and no murmur Gastrointestinal Tender in the right upper and mid abdomen without surgical signs. Results Vitals Vitals: Vital Signs - 24 hr 12/05/24 10:30 12/05/24 10:46 12/05/24 11:29 Pulse Rate 109 H Respiratory Rate 24 Blood Pressure 190/107 H O2 Saturation 98 O2 Source Room air Pain Intensity 5 10 0 Oxygen O2 Source Room air Labs Labs: Laboratory Tests 12/05/24 12/05/24 10:42 11:55 WBC 23.9 H RBC 4.49 Hgb 12.7 Hct 38.1 MCV 84.9 MCH 28.3 MCHC 33.3 RDW 13.5 Plt Count 352 MPV 10.9 H Neut # (Auto) Not Reportable Lymph # (Auto) Not Reportable [place] # (Auto) Not Reportable Eos # (Auto) Not Reportable Baso # (Auto) Not Reportable Absolute Nucleated RBC Not Reportable Total Counted 100 Band Neuts % (Manual) 1 Abnorm Lymph % (Manual) 0 Nucleated RBC % Not Reportable Neutrophils # (Manual) 21.0 H Lymphocytes # (Manual) 2.2 Monocytes # (Manual) 0.7 Eosinophils # (Manual) 0.0 Basophils # (Manual) 0.0 Differential Comment MANUAL DIFFERENTIAL WBC Morphology NORMAL APPEARANCE Platelet Estimate NORMAL (130-450,000) Platelet Morphology NORMAL APPEARANCE RBC Morph Micro Appear NORMAL APPEARANCE VBG pH 7.409 VBG pCO2 32.7 L VBG pO2 44.1 VBG HCO3 20.9 L VBG Total CO2 21.9 L VBG O2 Saturation 67.0 VBG Base Excess -3.9 L Sodium 133 L Potassium 3.4 L Chloride 95 L Carbon Dioxide 20 L Anion Gap 18.0 H BUN 29 H Creatinine 2.0 H Estimated GFR (MDRD) 27 L Glucose 458 H Calcium 9.5 Total Bilirubin 0.8 AST 26 ALT 13 Alkaline Phosphatase 109 Total Protein 6.7 Albumin 3.7 Globulin 3.0 Albumin/Globulin Ratio 1.2 Lipase 13 Serum Ketones SMALL H PD Medical Decision Making ED course ED course: This is a 49-year-old woman who is medically complex for age who presents with persistent vomiting and abdominal pain. Her white count is gone up in the preceding 2 days from 17 up to 23, she is veneer drier now with BENSON and borderline signs of DKA but with a normal venous pH. She was given IV fluids and insulin. Symptoms much better after droperidol and Dilaudid. Given the BENSON I spoke with Dr. Varma for admission at 12:35 PM. Discharge Plan Discharge Patient Disposition: ED Place in Observation Condition: Fair Clinical Impression: Vomiting, BENSON (acute kidney injury), Uncontrolled diabetes mellitus Prescriptions: No Action nitroglycerin 0.4 mg tablet, sublingual See Rx Instructions .ROUTE .COMPLEX PRN (Reason: chest pain) Qty: 90 1RF Rx Instructions: Place 1 tablet under the tongue as needed for chest pain. May repeat every 5 minutes if still having chest pain. max 3 tablets per episode. If no relief, call 911 Eliquis 5 mg tablet 5 mg PO BID Qty: 180 3RF glimepiride 4 mg tablet 4 mg PO QDAY Qty: 90 3RF ondansetron 4 mg tablet,disintegrating 8 mg translingual Q8HR PRN (Reason: Nausea / Vomiting) Qty: 30 0RF cyclobenzaprine 10 mg tablet 10 mg PO TID PRN (Reason: muscle spasm) Qty: 180 3RF carvedilol 25 mg tablet 25 mg PO BID Qty: 180 3RF Rx Instructions: must administer with a meal/food atorvastatin 40 MG tablet 40 mg PO DAILY aspirin 81 MG tablet,delayed release (DR/EC) 81 mg PO DAILY acetaminophen [Pain Relief ES (acetaminophen)] 500 MG tablet 1,000 mg PO Q6HR PRN (Reason: Pain 1-4) omeprazole magnesium 20 MG capsule,delayed release(DR/EC) 20 mg PO BID ProAir RespiClick 90 MCG aerosol powdr breath activated 2 puff ORAL Q4H amlodipine 5 mg tablet 5 mg PO DAILY furosemide 20 mg tablet 40 mg PO QAM fluticasone propionate 110 mcg/actuation HFA aerosol inhaler 2 puff inhalation BID trazodone 50 mg tablet 50 mg PO QDAY PRN (Reason: insomnia) Rx Instructions: Take 1-2 tablet by mouth at bedtime as needed for insomnia isosorbide mononitrate 120 mg tablet extended release 24 hr 1 mg PO DAILY Rx Instructions: 1 tablet by mouth once a day (DME) lancets 31 gauge misc See Rx Instructions .Route Qty: 3 3RF Rx Instructions: Use to test blood sugars three times a day pregabalin 50 mg capsule 100 mg PO BID meclizine 25 mg tablet 25 mg PO TID PRN (Reason: dizziness) Qty: 30 3RF Rx Instructions: take 1 tablet by mouth three times a day for dizziness metoclopramide HCl 10 mg tablet 10 mg PO QAC Qty: 90 5RF Rx Instructions: administer 30 minutes before meals for gastroparesis insulin glargine [Lantus Solostar U-100 Insulin] 100 unit/mL (3 mL) insulin pen 60 unit subcut QPM Qty: 45 3RF Rx Instructions: for diabetes tirzepatide 12.5 mg/0.5 mL pen injector 12.5 mg subcut QWEEK Qty: 2 3RF Rx Instructions: SC once weekly, may call in 4 weeks for dose increase Print Language: [place] Islander Stand Alone Forms: PCP List
[2024-12-05] MEDS: SODIUM CHLORIDE 0.9% 1,000 ML IV STA ×2 (10:36→11:33)
[2024-12-05] MEDS: HYDROmorphone 1 MG/ML SYRINGE IVP STA (10:40)
[2024-12-05] MEDS: DROPERIDOL 5 MG/2 ML VIAL IVP STA (10:45)
[2024-12-05] MEDS: MORPHINE 2 MG/ML CARPUJECT IVP STA (10:46)
[2024-12-05 10:49] LABS: BASOPHILS % (AUTO) 0.1 %; EOSINOPHILS % (AUTO) 0.2 %; HCT - HEMATOCRIT 38.1 % (37.0-47.0); HGB - HEMOGLOBIN 12.7 g/dL (12.0-16.0); MEAN CORPUSCULAR HEMOGLOBIN 28.3 pg (27.0-31.0); MEAN CORPUSCULAR HGB CONC 33.3 g/dL (32.0-36.0); MEAN CORPUSCULAR VOLUME 84.9 fL (81.0-99.0); MEAN PLATELET VOLUME 10.9 fL (7.9-10.8); MONOCYTES % (AUTO) 4.4 %; NEUTROPHILS % (AUTO) 86.8 %; PLT - PLATELET COUNT 352 10^3/uL (130-450); RED BLOOD COUNT 4.49 10^6/uL (4.20-5.40); RED CELL DISTRIBUTION WIDTH 13.5 % (12.0-15.0); WHITE BLOOD COUNT 23.9 x10^3/uL (4.8-10.8)
[2024-12-05 10:53] LABS: ABNORMAL LYMPHS % (MANUAL) 0 %
[2024-12-05 11:10] LABS: ALBUMIN 3.7 g/dL (3.2-5.5); ALBUMIN/GLOBULIN RATIO 1.2 (1.0-2.2); BAND NEUTROPHILS % (MANUAL) 1 %; BILIRUBIN,TOTAL 0.8 mg/dL (0.2-1.0); CALCIUM 9.5 mg/dL (8.5-10.3); DIFFERENTIAL COMMENT MANUAL DIFFERENTIAL; LYMPHOCYTES # (MANUAL) 2.2 10^3/uL (1.5-3.5); LYMPHOCYTES % (MANUAL) 9 %; MONOCYTES # (MANUAL) 0.7 10^3/uL (0.0-1.0); PLATELET ESTIMATE, MANUAL NORMAL (130-450,000) (NORMAL); PLATELET MORPHOLOGY NORMAL APPEARANCE (NORMAL); POTASSIUM 3.4 mmol/L (3.5-4.5); RBC MORPHOLOGY (MULTIPLE) NORMAL APPEARANCE (NORMAL); TOTAL PROTEIN 6.7 g/dL (6.4-8.9); WBC MORPHOLOGY (MULTIPLE) NORMAL APPEARANCE (NORMAL)
[2024-12-05] MEDS: INSULIN REGULAR, HUMAN 300 UNIT/3 ML PEN IVP STA ×2 (11:29→14:04)
[2024-12-05 12:06] LABS: VBG BASE EXCESS -3.9 mmol/L (-2 - +2); VBG PCO2 32.7 mmHg (41-51); VBG PH 7.409 (7.31-7.41); VBG PO2 44.1 mmHg (25-47); VBG TOTAL CO2 21.9 mmol/L (24-29)
--- NOTE | 2024-12-05 12:48 | Ultrasound Report ---
PROCEDURE: US Abdomen Limited INDICATIONS: cont ruq pain TECHNIQUE: Real-time focused scanning was performed of the abdomen, with image documentation. COMPARISONS: None. FINDINGS: Liver: Visualized portion of liver shows normal echotexture. Gallbladder: Sludge material in dependent portion of gallbladder lumen is seen. No gallbladder wall t hickening or pericholecystic fluid. No sonographic Kennedy's sign. Biliary ducts: Intrahepatic bile ducts are non-dilated. Extrahepatic bile duct caliber measures 7.8 mm. Normal is 6-7 mm or less in diameter, or 10 mm or less post-cholecystectomy. Miscellaneous: No free abdominal fluid. IMPRESSION: 1. Sludge material within dependent portion of gallbladder lumen. No sonographic evidence of acute ch olecystitis. 2. No intrahepatic biliary ductal dilatation. Mild prominence of common bile that measures up to 7.8 mm in diameter. No gross choledocholithiasis. Reviewed by: Manuel Noel MD on 12/05/2024 12:46 PM PDT Approved by: Manuel Noel MD on 12/05/2024 12:46 PM PDT Station ID: [id number]
--- NOTE | 2024-12-05 13:11 | HISTORY & PHYSICAL EXAMINATION ---
Chief Complaint Chief Complaint Chief Complaint: Nausea, vomiting History of Present Illness History Obtained From Records Reviewed: Yes History obtained from: Patient Exam Limitations: None History of Present Illness HPI Comment/Other: Patient is a 49-year-old female with history of insulin-dependent diabetes mellitus, morbid obesity with weekly Mounjaro use, complex regional pain syndrome, chronic kidney disease who presents with intractable nausea and vomiting over the last 4 to 5 days. Patient states that after her Mounjaro dose on Sunday, she usually feels some nausea and vomiting. However at this time, it has not subsided, and in fact has gotten worse. She is unable to keep anything down, and has had persistent feelings of nausea. This has resulted in some pain at the back of her throat due to her dry heaving and current retching. She has no abdominal pain. She has never had any abdominal surgeries. She is currently afebrile. She does have some occasional chills. Of note, she presented here few days ago for similar symptoms. At that time abdominal's pelvis/CT was done which showed a distended gallbladder with gallstones, as well as nonspecific perinephric edema and fat stranding. Abdominal ultrasound was done at that time which showed some gravel like stones versus sludge and gallbladder debris. Today, the abdominal ultrasound was also repeated, and it shows some sludge material within the dependent portion of the gallbladder lumen with no sonographic evidence of acute cholecystitis. There is no intrahepatic biliary ductal dilatation, nor is there any choledocholithiasis. Vitals and labs were reviewed from today's ED visit: She is hypertensive with blood pressure as high as 190/107, respiratory rate is 24, she is saturating 90% on room air. She has been afebrile, and tachycardic with heart rate as high as 111. Lab work revealed a leukocytosis of 23.9, which is worsened from 17.6 a few days ago. She has a hypokalemia of 3.4, as well as a high anion gap metabolic acidosis, and an elevated creatinine of 2. Her baseline appears to be between 1.3-1.5. She was also hyperglycemic with glucose of 458. Her AST, ALT are within normal limits. Lipase is also within normal limits. UA and urine are pending. Meds/Allgy Home Medications Ambulatory Orders Medication Instructions Recorded Confirmed acetaminophen 500 mg tablet (Pain 500 mg PO Q6HR PRN Pain 1-4 08/24/23 12/05/24 Relief Extra Strength (acetaminophen)) albuterol sulfate 90 mcg/actuation 2 puff inhalation Q4H PRN 08/24/23 12/05/24 breath activated powder inhaler shortness of breath or wheezing (ProAir RespiClick) aspirin 81 mg tablet,delayed 81 mg PO DAILY 08/24/23 12/05/24 release atorvastatin 40 mg tablet 40 mg PO DAILY 08/24/23 12/05/24 fluticasone propionate 110 2 puff inhalation BID PRN allergy 06/24/24 12/05/24 mcg/actuation HFA aerosol inhaler symptoms furosemide 20 mg tablet 40 mg PO QAM 06/24/24 12/05/24 isosorbide mononitrate 120 mg 1 mg PO DAILY 06/24/24 12/05/24 tablet,extended release 24 hr lancets 31 gauge #3 ea 06/24/24 09/22/24 meclizine 25 mg tablet 25 mg PO TID PRN dizziness #30 tabs 06/24/24 12/05/24 trazodone 50 mg tablet 50 mg PO QDAY PRN insomnia 06/24/24 12/05/24 nitroglycerin 0.4 mg sublingual See Rx Instructions .Route 07/23/24 12/05/24 tablet .COMPLEX PRN chest pain #90 tabs apixaban 5 mg tablet (Eliquis) 5 mg PO BID #180 tabs 09/13/24 12/05/24 metoclopramide HCl 10 mg tablet 10 mg PO QAC #90 tabs 09/22/24 12/05/24 tirzepatide 12.5 mg/0.5 mL 12.5 mg (0.5 mL) subcut QWEEK #2 mL 09/22/24 12/05/24 subcutaneous pen injector glimepiride 4 mg tablet 4 mg PO QDAY #90 tabs 09/26/24 12/05/24 ondansetron 4 mg disintegrating 8 mg (2 x 4 mg) translingual Q8HR 10/23/24 12/05/24 tablet PRN Nausea / Vomiting #30 tabs cyclobenzaprine 10 mg tablet 10 mg PO TID PRN muscle spasm #180 11/20/24 12/05/24 tabs carvedilol 25 mg tablet 25 mg PO BID #180 tabs 11/25/24 12/05/24 amlodipine 2.5 mg tablet 2.5 mg PO DAILY 12/05/24 12/05/24 insulin glargine 100 unit/mL (3 50 - 70 unit subcut QPM 12/05/24 12/05/24 mL) subcutaneous pen (Lantus Solostar U-100 Insulin) omeprazole 20 mg capsule,delayed 20 mg PO BID 12/05/24 12/05/24 release pregabalin 100 mg capsule 100 mg PO BID 12/05/24 12/05/24 tramadol 50 mg tablet 50 mg PO BID 12/05/24 12/05/24 Allergies Allergies Allergy/AdvReac Type Severity Reaction Status Date / Time chocolate flavor Allergy Anaphylaxis Verified 12/05/24 10:30 glyburide Allergy Unknown Verified 12/05/24 10:30 Iodinated Contrast Media Allergy Hives Verified 12/05/24 10:30 (Iodinated Contrast Media - IV Dye) latex Allergy Unknown Verified 12/05/24 10:30 penicillinase Allergy nausea, Verified 12/05/24 10:30 dizziness, syncope sulfamethoxazole (From Allergy Unknown Verified 12/05/24 10:30 Bactrim) trimethoprim (From Bactrim) Allergy Unknown Verified 12/05/24 10:30 norethindrone AdvReac Severe Cramps Verified 12/05/24 10:30 hydromorphone HCl * (From AdvReac Unknown Hallucinati Verified 12/05/24 10:30 Dilaudid) ons ketorolac (From Toradol) AdvReac Unknown Verified 12/05/24 10:30 PFSH Active Problems All Active Problems (Updated 12/05/24 @ 16:20 by Sourav Varma MD) Intractable nausea and vomiting (Acute) High anion gap metabolic acidosis (Acute) Leukocytosis (Acute) Uncontrolled diabetes mellitus (Acute) BENSON (acute kidney injury) (Acute) Vomiting (Acute) Abdominal pain (Acute) Erythema (Acute) Venous insufficiency (chronic) (peripheral) (Acute) Local infection of the skin and subcutaneous tissue, unspecified (Acute) Non-pressure chronic ulcer of left heel and midfoot with fat layer exposed (Acute) Pelvic pain in female (Acute) Essential tremor (Acute) PTSD (post-traumatic stress disorder) (Acute) Bipolar 1 disorder (Acute) Obsessive compulsive disorder (Acute) Migraine (Acute 09/28/22) Asthma (Acute 07/10/14) Wound infection (Acute 07/23/23) Hypertension, essential, benign (Acute 06/04/19) Hyperlipidemia (Acute 05/07/09) Herpes genitalis (Acute 06/07/09) Hallucinations (Acute 10/28/21) Gastroparesis (Acute 06/07/09) Fibromyalgia (Acute 05/05/09) Elevated serum creatinine (Acute 04/06/23) Edema (Acute 09/05/23) Carotid artery stenosis (Acute 11/01/21) CAD (coronary artery disease) (Acute 08/15/23) Blindness, bilateral (Acute 03/26/23) Amenorrhea (Acute 02/11/10) Acute occlusion of popliteal artery due to thromboembolism (Acute 08/15/23) Acute kidney failure, unspecified (Acute 11/01/21) Pyoderma gangrenosum (Acute) Pleural effusion (Acute) Anemia, iron deficiency (Acute) Non-pressure chronic ulcer of left heel and midfoot with unspecified severity (Acute) Head injury (Acute) Hyperglycemia due to type 2 diabetes mellitus (Acute) Medical History Medical History (Updated 12/05/24 @ 16:20 by Sourav Varma MD) Menorrhagia (07/15/10) Hyponatremia (11/01/21) Abnormal brain MRI (12/07/21) Social History Social History (Updated 12/05/24 @ 10:39 by Dori Reynoso RN) Smoking Status: Former smoker If you are a former smoker, when did you quit? (Date/Year): 2012 Number of Years Smoked: 10 How many cigarettes a day do you smoke? (20 cigarettes=1 Pk): 4 Do you dip or chew tobacco?: Yes Do you vape?: No Patient requests smoking cessation consult: Yes Initiate information on smoking cessation: Yes Marital Status: Living Condition: With spouse/s.o. Support Person: Yes Relationship: Level: Independent Do you feel safe in your home environment?: Yes Suffered physical, verbal, emotional, or financial abuse?: No History of Abuse: No Frequency: Occasional Substance Use: cannabis (any form) Service: No POLST Patient has POLST: No Review of Systems Constitutional Reports: Fatigue, Fever, Chills, Malaise and Weakness; Denies: Poor appetite Eyes Reports: Vision loss; Denies: Pain, Irritation, Blurry vision, Diplopia or Eye discomfort Ears, nose, mouth, and throat Denies: Ear pain, Hearing loss, Tinnitus, Nose bleeds, Nasal discharge, Mouth lesions or Bleeding gums Cardiovascular Denies: Irregular heart rate, chest pain, palpitations, edema, Syncope or shortness of breath with exertion Respiratory Denies: Shortness of breath, Cough, Sputum production or Wheezing Gastrointestinal Reports: Nausea, Vomiting and Poor appetite; Denies: Abdominal pain, Abdominal distention, Heartburn, Diarrhea or Constipation Genitourinary Denies: Painful urination, Urinary frequency or Urinary urgency Musculoskeletal Denies: Back pain, Extremity pain, Extremity swelling or Joint pain Integumentary/Breast Denies: Rash, Itching, Dryness, Redness or Skin pain Neurological Reports: Headache and General weakness; Denies: Weakness in extremities, Numbness in extremities, Abnormal gait or Dizziness Psychiatric Denies: Depression, Anxiety, Mood swings or Panic attacks Endocrine Reports: Fatigue; Denies: Excessive urination or Excessive thirst Hematologic/Lymphatic Denies: Anemia, Easy bruising or Easy bleeding Allergic/Immunologic Denies: Hives, Tongue swelling, Facial swelling or Wheezing Prior Level of Functionality: Visual impairment resulting in blindness. Exam Constitutional normal general appearance, no apparent distress, abnormal body habitus (obese) and alert HENMT normocephalic and head/scalp atraumatic Eyes PERRL, EOMs intact bilaterally and conjunctivae normal Neck/C-Spine visual inspection normal Lymph no lymphedema noted Chest inspection of chest normal Respiratory breath sounds equal bilaterally, clear to auscultation bilaterally, no wheezes and no rales Cardiovascular heart rate abnormal (tachycardic), regular rhythm noted, no gallop, no rub and no murmur Gastrointestinal abdomen normal to inspection, abdomen soft to palpation, nontender to palpation, nontender to percussion, nondistended, normoactive bowel sounds and no hepatosplenomegaly Genitourinary no CVA tenderness and bladder normal to palpation Back/Pelvis spine normal to inspection and no thoracic spine tenderness Extremities normal to inspection, no tenderness and full ROM 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 Usually has these effects after Mounjaro use, but this time it is prolonged. No close contacts with similar symptoms. Patient does not recall eating anything funny. Abdomen CT shows no obvious source. Abdominal ultrasound shows some gallbladder sludge but no evidence of cholecystitis. Continue aggressive IV fluid rehydration. Continue to trend leukocytosis. Continue aggressive glucose control. Advance diet as tolerated. (2) High anion gap metabolic acidosis: Plan: Likely make sure starvation ketosis and diabetic keto acidosis. Will continue to trend. Continue aggressive IV fluid rehydration, as well as glycemic control. (3) Leukocytosis: Plan: Likely reactive to above. Monitor off antibiotics at this time. Continue to trend. Qualifiers: Leukocytosis type: unspecified Qualified Code(s): D72.829 - Elevated white blood cell count, unspecified (4) Uncontrolled diabetes mellitus: Plan: Continue insulin glargine 50 to 70 units at night, as well as high-dose sliding scale. Hypoglycemic protocol in place. Qualifiers: Diabetes mellitus type: type 2 Glycemic state: with hyperglycemia Q ualified Code(s): E11.65 - Type 2 diabetes mellitus with hyperglycemia (5) BENSON (acute kidney injury): Plan: Creatinine elevated to 2.0; baseline is around 1.3-1.5. Continue aggressive IV fluid rehydration. (6) Bipolar 1 disorder: Plan: Continue trazodone. (7) Hypertension, essential, benign: Plan: Continue home amlodipine, Coreg, Imdur. (8) Hyperlipidemia: Plan: Continue statin. Qualifiers: Hyperlipidemia type: unspecified Qualified Code(s): E78.5 - Hyperlipidemia, unspecified (9) CAD (coronary artery disease): Plan: Continue statin, aspirin. Qualifiers: Coronary Disease-Associated Artery/Lesion type: unspecified vessel or lesion type [place] vs. transplanted heart: [place] heart Associated angina: w [facility] angina Qualified Code(s): I25.10 - Atherosclerotic heart disease of [place] coronary artery without angina pectoris (10) Acute occlusion of popliteal artery due to thromboembolism: Plan: Continue Eliquis. (11) Pyoderma gangrenosum: Plan: Patient had a history of pyoderma gangrenosum. This is now resolved. Patient has not been going to wound clinic. Lab Results Lab results reviewed: Yes 12/05/24 10:42 12/05/24 10:42 Diagnostic Imaging Results Diagnostic Imaging Results: positive Final report reviewed EKG Results EKG Interpreted Independently: Yes Core Measures Anticipated LOS I expect patient to be DC'd or transferred within 96 hours.: Yes DVT/VTE - Prophylaxis VTE/DVT Device ordered at admit?: Yes VTE/DVT Prophylaxis med ordered at admit?: Yes
[2024-12-05] MEDS: LACTATED RINGERS 1,000 ML IV ONE (13:14)
[2024-12-05] MEDS: PROCHLORPERAZINE 10 MG/2 ML VIAL IVP PRN (13:59)
[2024-12-05] MEDS: PHENOL THROAT SPRAY 177 ML MM PRN (13:59)
[2024-12-05] MEDS: INSULIN GLARGINE-YFGN 300 UNIT/3 ML PEN SUBQ STA (14:04)
[2024-12-05] MEDS ORDERED: ONDANSETRON ODT 4 MG TABLET TL PRN (14:10)
[2024-12-05] MEDS ORDERED: ONDANSETRON 4 MG/2 ML VIAL IVP PRN (14:10)
[2024-12-05] MEDS ORDERED: SODIUM CHLORIDE FLUSH 0.9% 10 ML SYRINGE IVP PRN (14:10)
[2024-12-05] MEDS: LACTATED RINGERS 1,000 ML IV SCH (15:01)
[2024-12-05] MEDS: amLODIPine 5 MG TABLET PO SCH (15:03)
[2024-12-05] MEDS ORDERED: ALBUTEROL 6.7 GM INHALER INH PRN (15:07)
[2024-12-05] MEDS ORDERED: ALBUTEROL NEB 2.5 MG/3 ML INH PRN (15:38)
[2024-12-05] MEDS: ACETAMINOPHEN 325 MG TABLET PO PRN (17:43)
[2024-12-05] MEDS: SODIUM CHLORIDE FLUSH 0.9% 10 ML SYRINGE IVP SCH (17:44)
[2024-12-05] MEDS: ONDANSETRON 4 MG/2 ML VIAL IVP PRN (17:45)
[2024-12-05] MEDS: INSULIN LISPRO 300 UNIT/3 ML PEN SUBQ SCH (17:47)
[2024-12-05] MEDS: hydrALAZINE INJ 20 MG/ML VIAL IVP ONE (17:49)
[2024-12-05 20:06] LABS: BILIRUBIN,URINE MODERATE (NEGATIVE); GLUCOSE, URINE (UA) >=1000 mg/dL (NEGATIVE); KETONES,URINE (UA) 15 mg/dL (NEGATIVE); LEUKOCYTE ESTERASE, URINE NEGATIVE (NEGATIVE); NITRITE,URINE NEGATIVE (NEGATIVE); OCCULT BLOOD,URINE LARGE (NEGATIVE); PH,URINE 5.5 PH (5.0-7.5); PROTEIN,URINE >=300 mg/dL (NEGATIVE); UROBILINOGEN,URINE 0.2 (NORMAL) E.U./dL (NORMAL)
[2024-12-05 20:07] LABS: CLARITY,URINE HAZY (CLEAR)
[2024-12-05 20:10] LABS: HCG UR QUAL NEGATIVE
[2024-12-05 20:26] LABS: SQUAMOUS EPITHELIAL CELL,UR MANY Squamous (<= Few)
[2024-12-05 20:28] LABS: AMORPHOUS SEDIMENT,UR Few /LPF
[2024-12-05] MEDS: POTASSIUM CHLOR 10 MEQ/100 ML 10 MEQ/100 ML BAG IV SCH (20:58)
[2024-12-05] MEDS: carvediloL 12.5 MG TABLET PO SCH (20:59)
[2024-12-05] MEDS: PREGABALIN 100 MG CAPSULE PO SCH (20:59)
[2024-12-05] MEDS: APIXABAN 5 MG TABLET PO SCH (20:59)
[2024-12-05] MEDS: traZODone 50 MG TABLET PO SCH (20:59)
[2024-12-05] MEDS: PANTOPRAZOLE 40 MG TABLET PO SCH (20:59)
[2024-12-05] MEDS: INSULIN GLARGINE-YFGN 300 UNIT/3 ML PEN SUBQ SCH (21:00)
[2024-12-05] MEDS ORDERED: carvediloL 12.5 MG TABLET PO SCH (21:00)
[2024-12-06] MEDS: ATORVASTATIN 40 MG TABLET PO SCH (08:17)
[2024-12-06] MEDS: ASPIRIN EC 81 MG TABLET PO SCH (08:17)
[2024-12-06] MEDS: FUROSEMIDE 40 MG TABLET PO SCH (08:18)
[2024-12-06] MEDS: ISOSORBIDE MONONITRATE ER 30 MG TABLET PO SCH (08:49)
[2024-12-06] MEDS ORDERED: ISOSORBIDE MONONITRATE ER 30 MG TABLET PO SCH (09:00)
[2024-12-06 10:19] LABS: HCT - HEMATOCRIT 29.7 % (37.0-47.0); HGB - HEMOGLOBIN 9.6 g/dL (12.0-16.0); MEAN CORPUSCULAR HEMOGLOBIN 28.8 pg (27.0-31.0); MEAN CORPUSCULAR HGB CONC 32.3 g/dL (32.0-36.0); MEAN CORPUSCULAR VOLUME 89.2 fL (81.0-99.0); MEAN PLATELET VOLUME 11.2 fL (7.9-10.8); RED BLOOD COUNT 3.33 10^6/uL (4.20-5.40); RED CELL DISTRIBUTION WIDTH 13.9 % (12.0-15.0); WHITE BLOOD COUNT 16.6 x10^3/uL (4.8-10.8)
[2024-12-06 10:30] LABS: MAGNESIUM 1.2 mg/dL (1.7-2.3)
[2024-12-06 10:36] LABS: CALCIUM 7.8 mg/dL (8.5-10.3); CREATININE 2.1 mg/dL (0.6-1.3); POTASSIUM 3.1 mmol/L (3.5-4.5)
[2024-12-06] MEDS: POTASSIUM CHLORIDE 20 MEQ/15 ML UDC PO SCH (11:29)
[2024-12-06] MEDS: MAGNESIUM SULFATE 2 GRAM 2 GM/50 ML BAG IV ONE (11:29)
[2024-12-06 11:39] VITALS: TEMP 99
[2024-12-06] MEDS ORDERED: MAGNESIUM SULFATE 1 GM/2 ML VIAL IVP SCH (12:00)
--- NOTE | 2024-12-06 13:59 | PROVIDER PROGRESS NOTE ---
Subjective Subjective Subjective: Patient feels better. Her nausea and her vomiting have improved. She has not had an episode of emesis since yesterday. She has no fevers or chills. She is tolerating p.o. intake, although she has not eaten much. Current Medications Current Medications Current Medications: Current Medications Generic Name Dose Route Start Last Admin Trade Name Freq PRN Reason Stop Dose Admin Acetaminophen 650 mg 12/05/24 14:10 12/05/24 17:43 Acetaminophen 325 Mg Tablet PO 650 mg Q4HR PRN Administration Pain 1 to 4, or Fever Albuterol 2.5 mg 12/05/24 15:38 Albuterol Neb 2.5 Mg/3 Ml INH RTQ4H PRN Shortness of Air/Wheezing Amlodipine Besylate 2.5 mg 12/05/24 14:55 12/06/24 08:18 Amlodipine 5 Mg Tablet PO 2.5 mg DAILY DUTCH Administration Apixaban 5 mg 12/05/24 21:00 12/06/24 08:17 Apixaban 5 Mg Tablet PO 5 mg BID DUTCH Administration Aspirin 81 mg 12/06/24 09:00 12/06/24 08:17 Aspirin Ec 81 Mg Tablet PO 81 mg DAILY DUTCH Administration Atorvastatin Calcium 40 mg 12/06/24 09:00 12/06/24 08:18 Atorvastatin 40 Mg Tablet PO 40 mg DAILY DUTCH Administration Carvedilol 25 mg 12/05/24 15:11 12/06/24 08:17 Carvedilol 12.5 Mg Tablet PO 25 mg BID DUTCH Administration Furosemide 40 mg 12/06/24 09:00 12/06/24 08:18 Furosemide 40 Mg Tablet PO 40 mg DAILY DUTCH Administration Lactated Ringer's 1,000 mls @ 100 mls/hr 12/05/24 14:10 12/06/24 05:08 Lr IV 100 mls/hr .Q10H DUTCH Administration Insulin Glargine-yfgn 50 - 70 unit 12/05/24 21:00 12/05/24 21:00 Insulin Glargine-Yfgn 300 Unit/3 Ml Pen SUBQ 50 unit QPM DUTCH Administration Insulin Human Lispro 3 - 11 unit 12/05/24 17:00 12/06/24 11:29 Insulin Lispro 300 Unit/3 Ml Pen SUBQ Not Given 0800,1200,1700,2100 DUTCH Protocol Isosorbide Mononitrate 120 mg 12/06/24 09:00 12/06/24 08:49 Isosorbide Mononitrate Er 30 Mg Tablet PO 120 mg DAILY DUTCH Administration Ondansetron HCl 4 mg 12/05/24 13:53 12/05/24 17:45 Ondansetron 4 Mg/2 Ml Vial IVP 4 mg Q4HR PRN Administration Nausea / Vomiting Ondansetron HCl 4 mg 12/05/24 14:10 Ondansetron 4 Mg/2 Ml Vial IVP Q6HR PRN Nausea / Vomiting Ondansetron HCl 4 mg 12/05/24 14:10 Ondansetron Odt 4 Mg Tablet TL Q6HR PRN Nausea / Vomiting Pantoprazole Sodium 40 mg 12/05/24 21:00 12/06/24 08:17 Pantoprazole 40 Mg Tablet PO 40 mg BID DUTCH Administration Phenol/Menthol 1 sprays 12/05/24 13:04 12/05/24 13:59 Phenol Throat Mathis 177 Ml MM 1 sprays Q4HR PRN Administration throat pain Potassium Chloride 40 meq 12/06/24 12:00 12/06/24 11:29 Potassium Chloride 20 Meq/15 Ml Udc PO 40 meq DAILYWM DUTCH Administration Pregabalin 100 mg 12/05/24 21:00 12/06/24 08:17 Pregabalin 100 Mg Capsule PO 100 mg BID DUTCH Administration Prochlorperazine Edisylate 10 mg 12/05/24 13:53 12/05/24 19:45 Prochlorperazine 10 Mg/2 Ml Vial IVP 10 mg Q6HR PRN Administration Nausea / Vomiting Sodium Chloride 10 ml 12/05/24 14:10 Sodium Chloride Flush 0.9% 10 Ml Syringe IVP PRN PRN NEEDED PER PROVIDER ORDERS Sodium Chloride 10 ml 12/05/24 17:00 12/06/24 08:16 Sodium Chloride Flush 0.9% 10 Ml Syringe IVP 10 ml 0100,0900,1700 DUTCH Administration Trazodone HCl 50 mg 12/05/24 21:00 12/05/24 20:59 Trazodone 50 Mg Tablet PO 50 mg HS DUTCH Administration Objective Vital Signs/Intake & Output Reviewed Vital Signs: Yes Vital Signs: Vital Signs x48h Temp Pulse Resp BP Pulse Ox 12/06/24 11:38 99.0 F 92 18 136/63 H 93 12/06/24 08:18 98.4 F 96 18 163/77 H 94 Intake & Output: Intake & Output 12/03/24 12/04/24 12/05/24 12/06/24 23:59 23:59 23:59 23:59 Intake Total 3132 / 3132 1808 / 1808 Output Total 150 / 150 Balance 2982 / 2982 1808 / 1808 Weight (kg) 121.5 kg Objective General Appearance: positive No acute distress; negative Alert, Mild distress or Anxious Eyes Bilateral: positive Normal inspection, PERRL and EOMI ENT: positive ENT inspection nml, Pharynx nml and Dry mucous membranes Neck: positive Nml inspection, Thyroid nml and No JVD Respiratory: positive Chest non-tender and No respiratory distress; negative Wheezes, Rales or Rhonchi Cardiovascular: positive Regular rate & rhythm, No murmur and No gallop; negative Systolic murmur or Diastolic murmur Abdomen: positive Non-tender; negative Rebound, Hepatomegaly, Splenomegaly or Mass Back: positive Nml inspection; negative CVA tenderness (R) or CVA tenderness (L) Skin: positive Color nml, No rash, Warm and Dry Extremities: positive Non-tender, Full ROM, Nml appearance and No pedal edema Neurologic/Psychiatric: positive Oriented x3, Motor nml and Mood/affect nml Lab Results 12/06/24 10:10 12/06/24 10:10 Other Labs: Lab Results x24hrs 12/06/24 12/06/24 12/06/24 Range/Units 11:27 10:10 07:43 WBC 16.6 H (4.8-10.8) x10^3/uL RBC 3.33 L (4.20-5.40) 10^6/uL Hgb 9.6 L (12.0-16.0) g/dL Hct 29.7 L (37.0-47.0) % MCV 89.2 (81.0-99.0) fL MCH 28.8 (27.0-31.0) pg MCHC 32.3 (32.0-36.0) g/dL RDW 13.9 (12.0-15.0) % Plt Count 237 (130-450) 10^3/uL MPV 11.2 H (7.9-10.8) fL Sodium 136 (135-145) mmol/L Potassium 3.1 L (3.5-4.5) mmol/L Chloride 104 (101-111) mmol/L Carbon Dioxide 23 (21-32) mmol/L Anion Gap 9.0 (6-13) BUN 32 H (6-20) mg/dL Creatinine 2.1 H (0.6-1.3) mg/dL Estimated GFR (MDRD) 25 L (>89) Glucose 145 H (74-104) mg/dL POC Whole Bld Glucose 131 84 (70-100) mg/dL Calcium 7.8 L (8.5-10.3) mg/dL Magnesium 1.2 L (1.7-2.3) mg/dL Urine Color Urine Clarity (CLEAR) Urine pH (5.0-7.5) PH Ur Specific [place] (1.002-1.030) Urine Protein (NEGATIVE) mg/dL Urine Glucose (UA) (NEGATIVE) mg/dL Urine Ketones (NEGATIVE) mg/dL Urine Occult Blood (NEGATIVE) Urine Nitrite (NEGATIVE) Urine Bilirubin (NEGATIVE) Urine Urobilinogen (NORMAL) E.U./dL Ur Leukocyte Esterase (NEGATIVE) Urine RBC (0-5) /HPF Urine WBC (0-5) /HPF Ur Squamous Epith Cells (<= Few) Amorphous Sediment /LPF Urine Bacteria (None Seen) /HPF Urine Casts /LPF Ur Microscopic Review Urine Culture Comments Urine HCG, Qual 12/05/24 12/05/24 12/05/24 Range/Units 20:47 19:45 19:45 WBC (4.8-10.8) x10^3/uL RBC (4.20-5.40) 10^6/uL Hgb (12.0-16.0) g/dL Hct (37.0-47.0) % MCV (81.0-99.0) fL MCH (27.0-31.0) pg MCHC (32.0-36.0) g/dL RDW (12.0-15.0) % Plt Count (130-450) 10^3/uL MPV (7.9-10.8) fL Sodium (135-145) mmol/L Potassium (3.5-4.5) mmol/L Chloride (101-111) mmol/L Carbon Dioxide (21-32) mmol/L Anion Gap (6-13) BUN (6-20) mg/dL Creatinine (0.6-1.3) mg/dL Estimated GFR (MDRD) (>89) Glucose (74-104) mg/dL POC Whole Bld Glucose 227 (70-100) mg/dL Calcium (8.5-10.3) mg/dL Magnesium (1.7-2.3) mg/dL Urine Color YELLOW Urine Clarity HAZY (CLEAR) Urine pH 5.5 (5.0-7.5) PH Ur Specific [place] >=1.030 H (1.002-1.030) Urine Protein >=300 H (NEGATIVE) mg/dL Urine Glucose (UA) >=1000 H (NEGATIVE) mg/dL Urine Ketones 15 H (NEGATIVE) mg/dL Urine Occult Blood LARGE H (NEGATIVE) Urine Nitrite NEGATIVE (NEGATIVE) Urine Bilirubin MODERATE H (NEGATIVE) Urine Urobilinogen 0.2 (NORMAL) (NORMAL) E.U./dL Ur Leukocyte Esterase NEGATIVE (NEGATIVE) Urine RBC 6-10 H (0-5) /HPF Urine WBC (0-5) /HPF Ur Squamous Epith Cells MANY Squamous H (<= Few) Amorphous Sediment Few /LPF Urine Bacteria (None Seen) /HPF Urine Casts 11-25 Hyaline Casts 3-5 Course Granular /LPF Ur Microscopic Review INDICATED Urine Culture Comments Not Reportable Urine HCG, Qual 12/05/24 12/05/24 12/05/24 Range/Units 17:45 16:31 13:59 WBC (4.8-10.8) x10^3/uL RBC (4.20-5.40) 10^6/uL Hgb (12.0-16.0) g/dL Hct (37.0-47.0) % MCV (81.0-99.0) fL MCH (27.0-31.0) pg MCHC (32.0-36.0) g/dL RDW (12.0-15.0) % Plt Count (130-450) 10^3/uL MPV (7.9-10.8) fL Sodium (135-145) mmol/L Potassium (3.5-4.5) mmol/L Chloride (101-111) mmol/L Carbon Dioxide (21-32) mmol/L Anion Gap (6-13) BUN (6-20) mg/dL Creatinine (0.6-1.3) mg/dL Estimated GFR (MDRD) (>89) Glucose (74-104) mg/dL POC Whole Bld Glucose 212 279 (70-100) mg/dL Calcium (8.5-10.3) mg/dL Magnesium (1.7-2.3) mg/dL Urine Color Urine Clarity (CLEAR) Urine pH (5.0-7.5) PH Ur Specific [place] (1.002-1.030) Urine Protein (NEGATIVE) mg/dL Urine Glucose (UA) (NEGATIVE) mg/dL Urine Ketones (NEGATIVE) mg/dL Urine Occult Blood (NEGATIVE) Urine Nitrite (NEGATIVE) Urine Bilirubin (NEGATIVE) Urine Urobilinogen (NORMAL) E.U./dL Ur Leukocyte Esterase (NEGATIVE) Urine RBC (0-5) /HPF Urine WBC (0-5) /HPF Ur Squamous Epith Cells (<= Few) Amorphous Sediment /LPF Urine Bacteria (None Seen) /HPF Urine Casts /LPF Ur Microscopic Review Urine Culture Comments Urine HCG, Qual NEGATIVE Diagnostic Imaging Diagnostic Imaging Results: positive Final report reviewed Assessment/Plan Problem List (1) Intractable nausea and vomiting: Impression: Patient presents with 5 days of nausea and intractable vomiting. Usually has these effects after Mounjaro use, but this time it is prolonged. No close contacts with similar symptoms. Patient does not recall eating anything funny. Abdomen CT shows no obvious source. Abdominal ultrasound shows some gallbladder sludge but no evidence of cholecystitis. Continue aggressive IV fluid rehydration. Continue to trend leukocytosis, it continues to improve. Continue aggressive glucose control. Advance diet as tolerated. Have started GI soft diet for dinner. (2) BENSON (acute kidney injury): Impression: Creatinine elevated to 2.0; baseline is around 1.3-1.5. Continue aggressive IV fluid rehydration. (3) High anion gap metabolic acidosis: Impression: Resolved. Likely make sure starvation ketosis and diabetic ketoacidosis. Will continue to trend. Continue aggressive IV fluid rehydration, as well as glycemic control. (4) Hypomagnesemia: Impression: Due to GI losses, repleted, continue to trend. (5) Hypokalemia: Impression: Due to GI losses, repleted, continue to trend. (6) Leukocytosis: Impression: Likely reactive to above, downtrending. Continue to monitor off antibiotics. Qualifiers: Leukocytosis type: unspecified Qualified Code(s): D72.829 - Elevated white blood cell count, unspecified (7) Uncontrolled diabetes mellitus: Impression: Continue insulin glargine 50 to 70 units at night (as patient does at home), as well as high-dose sliding scale. Hypoglycemic protocol in place. Qualifiers: Diabetes mellitus type: type 2 Glycemic state: with hyperglycemia Q ualified Code(s): E11.65 - Type 2 diabetes mellitus with hyperglycemia (8) Bipolar 1 disorder: Impression: Continue trazodone. (9) Hypertension, essential, benign: Impression: Continue home amlodipine, Coreg, Imdur. (10) Hyperlipidemia: Impression: Continue statin. Qualifiers: Hyperlipidemia type: unspecified Qualified Code(s): E78.5 - Hyperlipidemia, unspecified (11) CAD (coronary artery disease): Impression: Continue statin, aspirin. Qualifiers: Associated angina: without angina Coronary Disease-Associated Artery/Lesion type: unspecified vessel or lesion type [place] vs. transplanted heart: [place] heart Qualified Code(s): I25.10 - Atherosclerotic heart disease of [place] coronary artery without angina pectoris (12) Acute occlusion of popliteal artery due to thromboembolism: Impression: Continue Eliquis. (13) Pyoderma gangrenosum: Impression: Patient had a history of pyoderma gangrenosum. This is now resolved. Patient has not been going to wound clinic.
[2024-12-06 15:38] VITALS: BP 126/66; O2SAT 94
[2024-12-06 16:07] LABS: CALCIUM 8.3 mg/dL (8.5-10.3); CREATININE 2.1 mg/dL (0.6-1.3); POTASSIUM 3.8 mmol/L (3.5-4.5)
--- NOTE | 2024-12-06 16:20 | Discharge Summary ---
"Discharge Summary Admit Date: 12/05/24 Discharge Date: 12/06/24 Discharging Provider: Dr. Sourav Varma Primary Care Provider: Deana Lynne Code Status: Attempt Resuscitation Discharge Facility Name: Home DIAGNOSES Admission Diagnoses: Intractable nausea and vomiting High anion gap metabolic acidosis Leukocytosis Uncontrolled diabetes type 2 mellitus Acute kidney drain Bipolar disorder type I Hypertension Hyperlipidemia CAD Acute occlusion of popliteal artery Discharge Diagnoses with Status of Each Condition: Intractable nausea and vomitingresolved. Patient is tolerating p.o. intake well. Advised to maintain a GI soft and brat diet. Advised to follow-up closely with her primary care provider; already has an appointment scheduled in 1.5 weeks. Advised to recheck white count, creatinine, electrolytes at that visit. High anion gap metabolic acidosisresolved. Leukocytosisdowntrending, continue to trend in the outpatient setting with PCP. Diabetes mellitus with hyperglycemiacontinue home regimen of insulin, glimepiride, Mounjaro. Acute kidney injury on chronic kidney diseasebaseline is around 1.3-1.5. Creatinine was elevated to 2 here. Continue oral hydration at home, and follow- up with PCP in a week to recheck. Bipolar disorder type Icontinue trazodone. Hypertensioncontinue home amlodipine, Coreg, Imdur. Hyperlipidemiacontinue statin. CADcontinue statin and aspirin. Acute occlusion of popliteal artery due to thromboembolismcontinue Eliquis. Pyodermapatient has a remote history of pyoderma gangrenosum. This is now resolved. Patient has not been going to wound clinic as she has been discharged from their service. HPI History of Present Illness: Patient is a 49-year-old female with history of insulin-dependent diabetes mellitus, morbid obesity with weekly Mounjaro use, complex regional pain syndrome, chronic kidney disease who presents with intractable nausea and vomiting over the last 4 to 5 days. Patient states that after her Mounjaro dose on Sunday, she usually feels some nausea and vomiting. However at this time, it has not subsided, and in fact has gotten worse. She is unable to keep anything down, and has had persistent feelings of nausea. This has resulted in some pain at the back of her throat due to her dry heaving and current retching. She has no abdominal pain. She has never had any abdominal surgeries. She is currently afebrile. She does have some occasional chills. Of note, she presented here few days ago for similar symptoms. At that time abdominal's pelvis/CT was done which showed a distended gallbladder with gallstones, as well as nonspecific perinephric edema and fat stranding. Abdominal ultrasound was done at that time which showed some gravel like stones versus sludge and gallbladder debris. Today, the abdominal ultrasound was also repeated, and it shows some sludge material within the dependent portion of the gallbladder lumen with no sonographic evidence of acute cholecystitis. There is no intrahepatic biliary ductal dilatation, nor is there any choledocholithiasis. Vitals and labs were reviewed from today's ED visit: She is hypertensive with blood pressure as high as 190/107, respiratory rate is 24, she is saturating 90% on room air. She has been afebrile, and tachycardic with heart rate as high as 111. Lab work revealed a leukocytosis of 23.9, which is worsened from 17.6 a few days ago. She has a hypokalemia of 3.4, as well as a high anion gap metabolic acidosis, and an elevated creatinine of 2. Her baseline appears to be between 1.3-1.5. She was also hyperglycemic with glucose of 458. Her AST, ALT are within normal limits. Lipase is also within normal limits. UA and urine are pending. CONSULTS | PROCEDURES Procedures: Abdominal u/s HOSPITAL COURSE Hospital Course: Patient is a 49-year-old female with a history of insulin-dependent diabetes mellitus, hypertension, coronary artery disease who presented with persistent nausea and vomiting for the last 4 to 5 days. She states that this usually happens after her Mounjaro dose, but this time it was worse than usual. She had an BENSON on CKD, hypokalemia, hypomagnesemia, and was very dehydrated. She received IV fluids for the last day. Her nausea and vomiting have now resolved. She is tolerating p.o. intake well. She was advised to continue with soft and brat diet. She already has an appointment scheduled with her PCP in about a week and a half. She was advised to follow-up with her and recheck her white count, her creatinine, as well as her electrolytes. She demonstrated understanding. ALLERGIES Allergies Allergy/AdvReac Type Severity Reaction Status Date / Time chocolate flavor Allergy Anaphylaxis Verified 12/05/24 10:30 glyburide Allergy Unknown Verified 12/05/24 10:30 Iodinated Contrast Media Allergy Hives Verified 12/05/24 10:30 (Iodinated Contrast Media - IV Dye) latex Allergy Unknown Verified 12/05/24 10:30 penicillinase Allergy nausea, Verified 12/05/24 10:30 dizziness, syncope sulfamethoxazole (From Allergy Unknown Verified 12/05/24 10:30 Bactrim) trimethoprim (From Bactrim) Allergy Unknown Verified 12/05/24 10:30 norethindrone AdvReac Severe Cramps Verified 12/05/24 10:30 hydromorphone HCl * (From AdvReac Unknown Hallucinati Verified 12/05/24 10:30 Dilaudid) ons ketorolac (From Toradol) AdvReac Unknown Verified 12/05/24 10:30 MEDICATIONS Ambulatory Orders Medication Instructions Recorded Confirmed acetaminophen 500 mg tablet (Pain 500 mg PO Q6HR PRN Pain 1-4 08/24/23 12/05/24 Relief Extra Strength (acetaminophen)) albuterol sulfate 90 mcg/actuation 2 puff inhalation Q4H PRN 08/24/23 12/05/24 breath activated powder inhaler shortness of breath or wheezing (ProAir RespiClick) aspirin 81 mg tablet,delayed 81 mg PO DAILY 08/24/23 12/05/24 release atorvastatin 40 mg tablet 40 mg PO DAILY 08/24/23 12/05/24 fluticasone propionate 110 2 puff inhalation BID PRN allergy 06/24/24 12/05/24 mcg/actuation HFA aerosol inhaler symptoms furosemide 20 mg tablet 40 mg PO QAM 06/24/24 12/05/24 isosorbide mononitrate 120 mg 120 mg PO DAILY 06/24/24 12/06/24 tablet,extended release 24 hr lancets 31 gauge #3 ea 06/24/24 09/22/24 meclizine 25 mg tablet 25 mg PO TID PRN dizziness #30 tabs 06/24/24 12/05/24 nitroglycerin 0.4 mg sublingual See Rx Instructions .Route 07/23/24 12/05/24 tablet .COMPLEX PRN chest pain #90 tabs apixaban 5 mg tablet (Eliquis) 5 mg PO BID #180 tabs 09/13/24 12/05/24 metoclopramide HCl 10 mg tablet 10 mg PO QAC #90 tabs 09/22/24 12/05/24 tirzepatide 12.5 mg/0.5 mL 12.5 mg (0.5 mL) subcut QWEEK #2 mL 09/22/24 12/05/24 subcutaneous pen injector glimepiride 4 mg tablet 4 mg PO QDAY #90 tabs 09/26/24 12/05/24 ondansetron 4 mg disintegrating 8 mg (2 x 4 mg) translingual Q8HR 10/23/24 12/05/24 tablet PRN Nausea / Vomiting #30 tabs cyclobenzaprine 10 mg tablet 10 mg PO TID PRN muscle spasm #180 11/20/24 12/05/24 tabs carvedilol 25 mg tablet 25 mg PO BID #180 tabs 11/25/24 12/05/24 amlodipine 2.5 mg tablet 2.5 mg PO DAILY 12/05/24 12/05/24 insulin glargine 100 unit/mL (3 50 - 70 unit subcut QPM 12/05/24 12/05/24 mL) subcutaneous pen (Lantus Solostar U-100 Insulin) pregabalin 100 mg capsule 100 mg PO BID 12/05/24 12/05/24 tramadol 50 mg tablet 50 mg PO BID 12/05/24 12/05/24 omeprazole 20 mg capsule,delayed 20 mg PO BID #180 caps 12/06/24 release trazodone 50 mg tablet 50 mg PO QDAY PRN insomnia #90 tabs 12/06/24 PHYSICAL EXAM AT DISCHARGE General Appearance: positive No acute distress and Alert; negative Anxious Eyes Bilateral: positive Normal inspection, PERRL and Other (Bilateral vision impairment) ENT: positive ENT inspection nml, Pharynx nml and No signs of dehydration Neck: positive Nml inspection, Thyroid nml and No JVD Respiratory: positive Chest non-tender, No respiratory distress and Breath sounds nml; negative Wheezes, Rales or Rhonchi Cardiovascular: positive Regular rate & rhythm, No murmur and No gallop; negative Bradycardia, JVD present or Diastolic murmur Peripheral Pulses: positive 2+ Abdomen: positive Non-tender and No distention; negative Hepatomegaly, Splenomegaly or Mass Back: positive Nml inspection; negative CVA tenderness (R) or CVA tenderness (L) Skin: positive Color nml, No rash, Warm and Dry Extremities: positive Non-tender, Full ROM, Nml appearance and No pedal edema Neurologic/Psychiatric: positive Oriented x3 and Mood/affect nml LABS 12/06/24 10:10 12/06/24 15:42 DIAGNOSTIC IMAGING Diagnostic Imaging Results: Final report reviewed FOLLOW UP Follow Up: Follow-up with your primary care provider. TIME SPENT Time Spent in Discharge (Minutes): 35 Discharge Plan Discharge Patient Disposition: Home, Self Care Condition: Fair Prescriptions: Continued nitroglycerin 0.4 mg tablet, sublingual See Rx Instructions .ROUTE .COMPLEX PRN (Reason: chest pain) Qty: 90 1RF Rx Instructions: Place 1 tablet under the tongue as needed for chest pain. May repeat every 5 minutes if still having chest pain. max 3 tablets per episode. If no relief, call 911 Eliquis 5 mg tablet 5 mg PO BID Qty: 180 3RF glimepiride 4 mg tablet 4 mg PO QDAY Qty: 90 3RF ondansetron 4 mg tablet,disintegrating 8 mg translingual Q8HR PRN (Reason: Nausea / Vomiting) Qty: 30 0RF cyclobenzaprine 10 mg tablet 10 mg PO TID PRN (Reason: muscle spasm) Qty: 180 3RF Patient Comments: PM, PRN to relax/sleep carvedilol 25 mg tablet 25 mg PO BID Qty: 180 3RF Rx Instructions: must administer with a meal/food trazodone 50 mg tablet 50 mg PO QDAY PRN (Reason: insomnia) Qty: 90 3RF Rx Instructions: Take 1-2 tablet by mouth at bedtime as needed for insomnia omeprazole 20 mg capsule,delayed release(DR/EC) 20 mg PO BID Qty: 180 1RF atorvastatin 40 MG tablet 40 mg PO DAILY aspirin 81 MG tablet,delayed release (DR/EC) 81 mg PO DAILY acetaminophen [Pain Relief ES (acetaminophen)] 500 MG tablet 500 mg PO Q6HR PRN (Reason: Pain 1-4) ProAir RespiClick 90 MCG aerosol powdr breath activated 2 puff inhalation Q4H PRN (Reason: shortness of breath or wheezing) furosemide 20 mg tablet 40 mg PO QAM amlodipine 2.5 mg tablet 2.5 mg PO DAILY Patient Comments: take 1 tablet by mouth once daily. Patient's spouse says previous script was for 5mg. tramadol 50 mg tablet 50 mg PO BID Patient Comments: take 1 tablet by mouth every 8 to 12 hours not more than 2 tablets by mouth EACH DAY. pregabalin 100 mg capsule 100 mg PO BID insulin glargine [Lantus Solostar U-100 Insulin] 100 unit/mL (3 mL) insulin pen 50 - 70 unit subcut QPM Rx Instructions: for diabetes fluticasone propionate 110 mcg/actuation HFA aerosol inhaler 2 puff inhalation BID PRN (Reason: allergy symptoms) isosorbide mononitrate 120 mg tablet extended release 24 hr 120 mg PO DAILY Rx Instructions: 1 tablet by mouth once a day (DME) lancets 31 gauge misc See Rx Instructions .Route Qty: 3 3RF Rx Instructions: Use to test blood sugars three times a day meclizine 25 mg tablet 25 mg PO TID PRN (Reason: dizziness) Qty: 30 3RF Rx Instructions: take 1 tablet by mouth three times a day for dizziness metoclopramide HCl 10 mg tablet 10 mg PO QAC Qty: 90 5RF Rx Instructions: administer 30 minutes before meals for gastroparesis Held tirzepatide 12.5 mg/0.5 mL pen injector 12.5 mg subcut QWEEK Qty: 2 3RF Hold Instructions: Resume on 12/12/24. Hold until you follow up with PCP - let her know about your recent hospitalization. Rx Instructions: SC once weekly, may call in 4 weeks for dose increase Diet: Soft Health Concerns: You came in because you had been feeling nauseous and throwing up for the past 4-5 days. Your labs indicated that you were very dehydrated; your kidney numbers were a little worse than usual, and your electrolytes, including magnesium and potassium, were low. We did a CT scan of your abdomen a couple days ago, and it did not show anything too concerning. We gave you a lot of IV fluids, and replaced your electrolytes while you were here. You are feeling much better, and as such I think you can go home. Please continue to hydrate yourself appropriately. Please stick to a soft diet until you feel 100% better. See the attached handout for information. When you go to see your primary care provider, you can show her this note: Please recheck a CBC to make sure that her white count has resolved, please recheck a BMP to make sure her kidneys are back at their baseline. We are glad you are feeling better, thank you for letting us take care of you. Print Language: Faroese Patient Instructions: Diet Soft Dc, ED Diet [place] [facility] Stand Alone Forms: PCP List Follow-up Care: Deana Lynne, MADHAV [Primary Care Provider] -"
== END 2024-12-06 18:00 | disposition home or self-care (01) ==
LOC: MS3 10:02 → ED 10:02 → MS3 13:51
PROVIDERS: ADMIT Internal Medicine; ATTEND Internal Medicine